=== PATIENT | male | born 1970 | race Caucasian/White ===

== ENCOUNTER 2025-05-03 07:07 | Inpatient (IN) | payer BC, OTHER ==
[~2025-05-03] VITALS: Ht 182.9 cm; Wt 150.7 kg
--- NOTE | 2025-05-03 07:24 | ED.PDOC ---
Back pain HPI HPI Comments 54-year-old male brought in by ambulance with a chief complaint of back pain. Patient reports on having back pain for the past three days. Pain worsens when sitting down. Associated symptoms of nausea and vomiting. Patient has severe pain. Denies trauma or any other symptoms at this time. Denies history of chronic steroid use or history of osteoporosis Denies history of cancer Denies fevers chills night sweats nausea vomiting unintentional weight loss Denies abdominal tearing pain Denies syncope Denies urinary changes or urinary incontinence Denies numbness tingling of the groin her inner thigh Denies previous back procedures or surgeries Chief Complaint: Back Pain Time Seen by MD: 07:30 Reviewed Notes: Nurses Notes, Human Resources Project Manager Notes, Medications, Allergies Allergies: Coded Allergies: NO KNOWN ALLERGIES (Unverified , 05/03/25) Information Source: Patient, Emergency Med Personnel Mode of Arrival: Ambulatory Timing: Days Duration: Since onset, Days Severity: Moderate Prehospital treatment: None Quality: Aching Onset: Spontaneous History of: None Past Medical History PAST MEDICAL HISTORY: Denies Surgical History: Denies all surgeries Constitutional: denies: chills, diaphoresis, fatigue, fever, malaise, sweats, weakness, others EENTM: denies: blurred vision, double vision, ear bleeding, ear discharge, ear drainage, ear pain, ear ringing, eye pain, eye redness, hearing loss, mouth pain, mouth swelling, nasal discharge, nose bleeding, nose congestion, nose pain, photophobia, tearing, throat pain, throat swelling, voice changes, others Respiratory: denies: cough, hemoptysis, orthopnea, SOB at rest, shortness of breath, SOB with excertion, stridor, wheezing, others Cardiovascular: denies: chest pain, dizzy spells, diaphoresis, Dyspnea on exertion, edema, irregular heart beat, left arm pain, lightheadedness, palpitations, PND, syncope, others Gastrointestinal: reports: nausea, vomiting; denies: abdomen distended, abdominal pain, blood streaked bowels, constipated, diarrhea, dysphagia, difficulty swallowing, hematemesis, melena, poor appetite, poor fluid intake, rectal bleeding, rectal pain, others Genitourinary: denies: burning, dysuria, flank pain, frequency, hematuria, incontinence, penile discharge, penile sore, pain, testicle pain, testicle swelling, urgency, others Neurological: denies: dizziness, fainting, headache, left sided numbness, left sided weakness, numbness, paresthesia, pre-existing deficit, right sided numbn ess, right sided weakness, seizure, speech problems, tingling, tremors, weakness, others Musculoskeletal: reports: back pain; denies: gout, joint pain, joint swelling, muscle pain, muscle stiffness, neck pain, others Integumetry: denies: bruises, change in color, change in hair/nails, dryness, laceration, lesions, lumps, rash, wounds, others Allergic/Immunocompromised: denies: Difficulty Healing, Frequent Infections, Hives, Itching, others Hematologic/Lymphatic: denies: anemia, blood clots, easy bleeding, easy bruising, swollen glands, others Endocrine: denies: excessive hunger, excessive sweating, excessive thirst, excessive urination, flushing, intolerance to cold, intolerance to heat, unexplained weight gain, unexplained weight loss, others Psychiatric: denies: anxiety, bipolar disorder, depression, hopeless, panic disorder, schizophrenia, sleepless, suicidal, others All Other Systems: Reviewed and Negative Physical Exam Exam Comments Head normocephalic, localized TTP to the midline region with no steps off, bilateral lower extremity strains 5+, lower extremity vascular sensation is intact General Appearance: No Apparent Distress, Normal HEENT: Normal ENT Inspection, Pharynx Normal, TMs Normal Neck: Full Range of Motion, Non-Tender, Normal, Normal Inspection Respiratory: Chest Non-Tender, Lungs Clear, No Accessory Muscle Use, No Respiratory Distress, Normal Breath Sounds Cardiovascular: No Edema, No JVD, No Murmur, No Gallop, Normal Peripheral P ulses, Regular Rate/Rhythm Breast Exam: Deferred Gastrointestinal: No Organomegaly, Non Tender, No Pulsatile Mass, Normal Bowel Sounds, Soft Genitalia: Deferred Pelvic: Deferred Rectal: Deferred Extremities: No calf tenderness, Normal capillary refill, Normal inspection, Normal range of motion, Non-tender, No pedal edema Musculoskeletal : Apperance: Normal Neurologic: Alert, metal off bearer II-XII nml as Tested, No Motor Deficits, Normal Affect, Normal Mood, No Sensory Deficits Cerebellar Function: Normal Reflexes: Normal Skin: Dry, Normal Color, Warm Lymphatic: No Adenopathy Was a procedure done? Was a procedure done?: No Back Pain Differential Dx Differential Diagnosis: AAA, Aortic Dissection, Appendicitis, Fracture, Musculoskeletal Pain, Pancreatitis, Urinary Tract Infection, Urolithiasis X-Ray, Labs, Meds, VS Vital Signs Date Time Temp Pulse Resp B/P (MAP) Pulse Ox O2 Delivery O2 Flow Rate FiO2 05/03/25 19:03 97.8 05/03/25 17:50 99.4 115 17 101/54 (70) 95 99.4 05/03/25 08:44 90 20 122/81 05/03/25 08:13 90 20 122/81 (95) 95 05/03/25 08:13 90 20 95 Room Air 05/03/25 07:14 98.0 98 18 124/70 96 98.0 Lab Test 05/03/25 19:12 05/03/25 14:45 05/03/25 14:31 05/03/25 09:23 Range/Units Lactic Acid Level 2.1 *H 2.6 *H 0.4-2.0 mmol/L Thyroid Stimulating Hormone (TSH) 1.87 0.55-4.78 uIU/mL Influenza Type A Antigen Negative Negative Influenza Type B Antigen Negative Negative Urine Color Yellow Yellow Urine Clarity Clear Clear Urine pH 5.0 5.0-9.0 Urine Specific [place] 1.025 1.001-1.035 Urine Protein Negative Negative Urine Ketones Negative Negative Urine Blood Negative Negative /uL Urine Nitrite Negative Negative Urine Bilirubin Negative Negative Urine Urobilinogen Normal Negative mg/dL Urine Leukocyte Esterase Negative Negative /uL Urine RBC 3 0 - 3 /hpf Urine Microscopic WBC 2 0-3 /HPF Urine Squamous Epithelial Cells Few <5 /hpf Urine Bacteria None seen None Seen /hpf Urine Mucus Few None Seen Urine Glucose Trace Normal mg/dL Test 05/03/25 08:56 05/03/25 07:52 05/03/25 00:00 Range/Units Troponin I High Sensitivity 8 7 </=54 ng/L White Blood Count 21.6 H 4.4-10.8 10^3/uL Red Blood Count 4.91 4.5-5.90 10^6/uL Hemoglobin 14.7 13.5-17.5 g/dL Hematocrit 41.6 41.0-53.0 % Mean Corpuscular Volume 84.7 80.0-100.0 fL Mean Corpuscular Hemoglobin 29.9 28.0-32.0 pg Mean Corpuscular Hemoglobin Concent 35.3 32.0-36.0 g/dL Red Cell Distribution Width 14.2 11.8-14.3 % Platelet Count 197 140-450 10^3/uL Mean Platelet Volume 8.0 6.9-10.8 fL Neutrophils (%) (Auto) 90.2 H 37.0-80.0 % Lymphocytes (%) (Auto) 2.5 L 10.0-50.0 % Monocytes (%) (Auto) 6.9 0.0-12.0 % Eosinophils (%) (Auto) 0.1 0.0-7.0 % Basophils (%) (Auto) 0.3 0.0-2.0 % Neutrophils # (Auto) 19.5 H 1.6-8.6 10 ^3/uL Lymphocytes # (Auto) 0.5 0.4-5.4 10 ^3/uL Monocytes # (Auto) 1.5 H 0-1.3 10 ^3/uL Eosinophils # (Auto) 0 0-0.8 10 ^3/uL Basophils # (Auto) 0.1 0-0.2 10 ^3/uL Nucleated Red Blood Cells 0.0 % Sodium Level 134 L 136-145 mmol/L Potassium Level 4.4 3.5-5.1 mmol/L Chloride Level 103 98-107 mmol/L Carbon Dioxide Level 19 L 20-31 mmol/L Anion Gap 12 5-15 Blood Urea Nitrogen 25 H 9-23 mg/dL Creatinine 1.51 H 0.700-1.30 mg/dL Glomerular Filtration Rate Calc 55 >90 mL/min BUN/Creatinine Ratio 16.6 10.0-20.0 Serum Glucose 244 H 74-106 mg/dL Hemoglobin A1c 6.1 H <5.7 % A1C Calcium Level 9.0 8.7-10.4 mg/dL Total Bilirubin 2.3 H 0.2-1.0 mg/dL Aspartate Amino Transferase (AST) 15 13-40 U/L Alanine Aminotransferase (ALT) 19 7-40 U/L Alkaline Phosphatase 53 46-116 U/L B-Type Natriuretic Peptide 74.07 0-100 pg/mL Total Protein 6.7 5.7-8.2 g/dL Albumin 4.0 3.2-4.8 g/dL Lipase 31 12-53 U/L SARS-CoV-2 Antigen (Rapid) Negative NEGATIVE Current Medications Medications (Trade) Dose Ordered Sig/Beronica Route Start Time Stop Time Status Last Admin Acetaminophen (Tylenol Tablet) 650 mg ONCE ONCE PO 05/03/25 14:45 05/03/25 14:46 DC 05/03/25 19:03 Sodium Chloride 250 ml @ 1,000 mls/hr Q15M ONCE IV 05/03/25 16:00 05/03/25 16:14 DC 05/04/25 01:22 X-Ray, Labs, Meds, VS Comment 54-year-old male brought in by ambulance with no prior MHx associated with a chief complaint of back pain. Patient arrives alert and oriented, ABC's intact, afebrile, vital signs stable, saturating well in room air Peripheral IV insertion+ labs were ordered. CBC was ordered to exclude anemia, blood loss, or infection. BMP was ordered to exclude electrolyte abnormalities, renal failure, de hydration, hyperglycemia CMP was ordered to exclude electrolyte abnormalities, renal failure, dehydration, hyperglycemia and/or liver enzyme abnormalities. PT and INR were ordered to rule out coagulopathy. Troponin and BNP were ordered to rule out myocardial infarction, or congestive heart failure. Urinalysis was ordered to rule out UTI or hematuria. Diagnostic imaging ordered by me and results interpreted by radiology : CT spine, abdominal pelvis CT I considered cauda equina, spinal cord compression, vertebral malignancy/mets, acute spinal fracture, vertebral osteomyelitis, epidural abscess, infected or obstructed kidney stone, Patients work up was remarkable for intractable back pain. The patient received pain medication with minimal improvement in the ER. The patient's workup reveals that the patient needs further evaluation and/or treatment for the above medical conditions. Patient verbalized understanding of the above and is awaiting further evaluation by the admitting service. Time of 1ST Reevaluation: 08:00 Reevaluation 1ST: Unchanged Time of 2ND Reevaluation: 11:32 Reevaluation 2ND: Unchanged Patient Education/Counseling: Diagnosis, Treatment, Prognosis Family Education/Counseling: No Family Present SEPSIS Sepsis Screen Date sepsis recognized/suspect: May 03, 2025 Time Sepsis recognized/suspect: 713 Recent Procedure: No On Antibiotic Therapy: No Respiratory Rate >20: No Heart Rate >90: Yes Temp<36 C (96.8 F) or >38.3 C: No SBP <90 or MAP <65 mmHG: No New Acute Mental Status Change: No Is the patient on CPAP, BIPAP,: No Physician Orders Heplock Iv (05/03/25 ) Electrocardigram (05/03/25 07:43) Ls Spine Wo Contrast (05/03/25 07:43) Ct Ab Pel With Iv Con Only (05/03/25 10:23) Urinalysis (05/03/25 14:32) Drug Screen (05/03/25 14:41) Baclofen Tablet (Liorisal Tablet) (05/04/25 10:00) Blood Culture (05/03/25 15:05) Sliding Scale (05/03/25 ) Vital Signs Date Time Temp Pulse Resp B/P (MAP) Pulse Ox O2 Delivery O2 Flow Rate FiO2 05/03/25 19:03 97.8 05/03/25 17:50 99.4 115 17 101/54 (70) 95 99.4 05/03/25 08:44 90 20 122/81 05/03/25 08:13 90 20 122/81 (95) 95 05/03/25 08:13 90 20 95 Room Air 05/03/25 07:14 98.0 98 18 124/70 96 98.0 Laboratory Tests Test 05/03/25 07:52 05/03/25 14:45 05/03/25 19:12 White Blood Count 21.6 10^3/uL (4.4-10.8) H Lactic Acid Level 2.6 mmol/L (0.4-2.0) *H 2.1 mmol/L (0.4-2.0) *H Departure 1 Departure Time of Disposition: 11:33 Impression: Primary Impression: Intractable back pain Disposition: ADMITTED INPATIENT Condition: Fair Critical Care Note Critical Care Time?: No Stability Stability form required: No Heart Score Heart Score: Heart Score Response (Comments) Value History N/A 0 EKG N/A 0 Age N/A 0 Risk Factors N/A 0 Troponin N/A 0 Total 0 I personally scribed for SHABNAM REMY WOUND/OSTOMY NURSE ([email or web address]) on 05/03/25 at 07:24. Electronically submitted by Hilario Joya ([email or web address]). I personally scribed for SHABNAM REMY NP ([email or web address]) on 05/03/25 at 07:48. Electronically submitted by Hilario Joya ([email or web address]). SHABNAM REMY NP May 03, 2025 07:24
[2025-05-03] MEDS: SODIUM CHLORIDE 0.9% 1,000 ML IV ONE (07:45)
[2025-05-03 08:33] LABS: Hematocrit 41.6 % (41.0-53.0); Hemoglobin 14.7 g/dL (13.5-17.5); Mean Corpuscular Hemoglobin 29.9 pg (28.0-32.0); Mean Corpuscular Volume 84.7 fL (80.0-100.0); Nucleated Red Blood Cells % 0.0 %
[2025-05-03] MEDS: ONDANSETRON HCL 4 MG/2 ML VIAL ONE (08:37)
[2025-05-03] MEDS: MORPHINE SULFATE 4 MG/ML SYR/VIAL IV ONE ×2 (08:44→11:16)
[2025-05-03] MEDS: ONDANSETRON HCL 4 MG/2 ML VIAL IV ONE ×2 (08:44→11:16)
[2025-05-03] MEDS: MORPHINE SULFATE 4 MG/ML SYR/VIAL ONE (08:44)
[2025-05-03 08:50] LABS: Alanine Aminotransferase 19 U/L (7-40); Albumin 4.0 g/dL (3.2-4.8); Alkaline Phosphatase 53 U/L (46-116); Anion Gap 12 (5-15); BUN/Creatinine Ratio 16.6 (10.0-20.0); Calcium 9.0 mg/dL (8.7-10.4); Chloride 103 mmol/L (98-107); Lipase 31 U/L (12-53); Potassium 4.4 mmol/L (3.5-5.1); Total Protein 6.7 g/dL (5.7-8.2)
[2025-05-03 08:53] LABS: Bilirubin, Total 2.3 mg/dL (0.2-1.0); Blood Urea Nitrogen 25 mg/dL (9-23); Carbon Dioxide 19 mmol/L (20-31); Glucose 244 mg/dL (74-106); Sodium 134 mmol/L (136-145)
--- NOTE | 2025-05-03 08:55 | DVH ---
CLINICAL INDICATION: Sudden Back pain TECHNIQUE: CT of the lumbar spine was performed without intravenous contrast. Sagittal and coronal re formatted images are provided. All CT scans at this medical facility are performed using dose modula tion techniques as appropriate to a performed exam including the following: Automated exposure contro l was utilized; adjustment of the MA and/or KV according to patient size; and use of iterative recons truction technique. COMPARISON: None CT Dose: CTDI volume is 38.94 mGy. Dose-length product is 1508.22 mGy*cm FINDINGS: The alignment and curvature of the lumbar spine are preserved. The vertebral bodies are normal in hei ght. There is intervertebral disc space narrowing at L4-L5 and L5-S1. There is stenosis at L4-L5 and L5-S1. Bilateral neural foraminal stenosis at L4-L5 and L5-S1. The prevertebral soft tissues are unremarkable. Paraspinal muscles are also within normal limits. IMPRESSION: 1. No acute fracture or dislocation. 2. Degenerative changes at L4-L5 and L5-S
[2025-05-03 10:17] LABS: Urine Protein, UAD Negative (Negative)
[2025-05-03] MEDS: IOHEXOL 300 MG/ML 100ML BOTTLE IJ ONE (10:40)
--- NOTE | 2025-05-03 11:16 | DVH ---
Exam: CT CT AB PEL WITH IV CON ONLY History: R/o pathology COMPARISON: None Technique: Multidetector spiral CT of the abdomen and pelvis was performed from lung bases to pubic s ymphysis. Intravenous contrast was administered during this examination. Portal venous imaging was o btained. Axial, coronal and sagittal multiplanar reformats were performed by the technologist on a [employer] workstation. Radiation Dose : 1. Abdomen/Pelvis: CTDIvol 27.84mGy, DLP 2018.08 mGy*cm. Findings: Lung Bases: Dependent subsegmental atelectasis. Liver: Hepatic steatosis. Hepatomegaly. Gallbladder and Biliary Tree: Unremarkable Spleen: Unremarkable Pancreas: The pancreas is normal in appearance without focal lesions or abnormal enhancement. Adrenal Glands: Unremarkable Kidneys: No hydronephrosis. Left midpole cyst measures 3.1 cm. Bladder: Unremarkable Bowel: The stomach is grossly normal in appearance. Small bowel and colon are normal in caliber and d istribution. The appendix is not visualized; however, no secondary findings of acute appendicitis ralph ntified. Ascites: Absent Lymphadenopathy: No mesenteric, retroperitoneal or periportal lymphadenopathy. Abdominal Wall and Mesentery: Unremarkable. Vasculature: The visualized abdominal aorta is normal in size and caliber. Abdominal and pelvic vess els demonstrate normal enhancement. Pelvic Organs: Unremarkable Musculoskeletal: No aggressive focal bony lesions, acute fractures or dislocation. Degenerative waddell es of the spine. IMPRESSION: No acute abdominal or pelvic finding. Hepatic steatosis and hepatomegaly. Radiation optimization: All CT scans at this facility use at least one of these dose optimization amna hniques: automated exposure control mA and/or kV adjustment per patient size (includes targeted exam s where dose is matched to clinical indication) or iterative reconstruction.
--- NOTE | 2025-05-03 15:05 | DVHPNRES ---
Progress Note Date Seen: May 03, 2025 Resident Creating Document: JOZEF PATIÑO RESIDENT Medical Necessity Reason Pt with a Central, PICC or Fol: No Subjective Review of Systems Ish Lisa is a 54-year-old male with rheumatoid arthritis who came to the ED with intractable back pain. The patient mentions he has had back pain since 3 days. He describes the pain as 9/10 in intensity, aching in character and radiating to the left leg. The patient states that the pain is such that he can not move around. He states that bending forward worsens the pain. The patient denies any history of trauma. The patient states that he also feels weakness in his legs along with the pain. He has history of nausea and vomiting since 2 days with 2-3 episodes of nonbloody vomitus, with him not being able to keep anything down except water. Patient has a history of a cold 10 days back with no fever, chills or cough. Past medical history: Rheumatoid arthritis (Remicade-once every 6 weeks), diabetes-not on any medication, hypertension-not on any medication Past surgical history: Tonsillectomy, inguinal hernia repair Social & Personal history: lives at home with family Smokin Cigars on weekends Alcohol: 2-3 beers on weekends Drugs:denies Allergies: almonds Patient seen and examined at bedside. Patient is alert and oriented to time, place person and responding to all questions. Patient is in distress due to back pain. Eyes: No Pain, No Vision change, No Conjunctivae inflammation, No Eyelid inflammation, No Redness ENT: No Ear pain, No Ear discharge, No Nose pain, No Nose discharge, No Nose congestion, No Mouth pain, No Mouth swelling, No Throat pain, No Throat swelling Cardiovascular: No Chest Pain, No Palpitations, No Orthopnea, No Paroxysmal No Dyspnea, No Edema, No Lt Headedness Respiratory: No Cough, No Dry, No Shortness of breath, No SOB with exertion, No Wheezing, No Hemoptysis, No Pleuritic Pain, No Sputum Gastrointestinal: Nausea,Vomiting, No Abdominal Pain, No Diarrhea, No Constipation, No Melena, No Hematochezia Genitourinary: No Dysuria, No Frequency, No Incontinence, No Hematuria, No Retention Objective vital signs Vital Sign Date Time Temp Pulse Resp B/P (MAP) Pulse Ox O2 Delivery O2 Flow Rate FiO2 9/15/25 08:44 90 20 122/81 05/03/25 08:13 95 05/03/25 08:13 Room Air 05/03/25 07:14 98.0 98.0 Examination General Appearance: Cooperative. Well developed. Well nourished. NAD. Head Exam: Normal inspection Neck Exam: Normal inspection. Non-tender. Normal alignment Pulmonary/Respiratory: Chest non-tender. Clear bilateral breath sounds, no crackles, no wheezing. Cardiovascular/Chest: Regular rate and rhythm. No murmurs. No JVD. Peripheral Pulses: 2+ Radial (R). 2+ Radial (L). 2+ Pedal (R). 2+ Pedal (L) Abdominal Exam: Normal bowel sounds. Soft. normal abdomen, no visible veins, Nontender. No hepatospenomegaly. No masses,red,erythematous linear area approximately 10 cm long Ankle Exam: Negative ankle edema Lower extremities: Negative lower extremity edema Neuro/Mental Status: A&O x4. Coherent. Thoughts/Psych: Normal thought pattern. Appropriate mood and affect. Good judgement and insight Skin Exam: Normal inspection. Normal color. Warm. Dry Patient has tenderness on palpation in lower lumbar and sacral area (L5-S1) and left paraspinal area. laboratory and microbiology Laboratory Tests 05/03/25 07:52 Test 05/03/25 07:52 Range/Units Serum Glucose 244 H 74-106 mg/dL Labs and/or images reviewed: Labs reviewed by me, Image(s) reviewed by me Problem List/Assessment/Plan Problem List/Assessment/Plan Rule out sepsis Severe paraspinal muscle spasm -baclofen and flexeril -hot pack -ibuprofen -Lumbar spine CT-No acute fracture or dislocation. -Degenerative changes at L4-L5 and L5-S Intractable nausea and vomiting,possibly due to ? 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 Hyperbilirubinemia -total bilirubin 2.3 -monitor labs for now Left renal cyst - CT showed 3.1 cm -outpatient follow up PUD prophylaxis: protonix DVT prophylaxis: not indicated Goals of care: Full code, discussed for >23 minutes Plan discussed with patient Plan discussed with Dr Reyes Plan discussed with: Patient My Orders My Orders Orders - JOZEF PATIÑO RESIDENT Procedure Category Date Status Time Covid19 Antigen Irina LAB 05/03/25 Logged Rapid Influenza A&B LAB 05/03/25 Logged 14:31 Lactic Acid W/ Reflex LAB 05/03/25 Logged Order 14:32 Thyroid Stimulating LAB 05/03/25 Logged Hormone 14:32 Urinalysis LAB 05/03/25 Logged 14:32 Hemoglobin A1c LAB 05/03/25 Logged 14:33 Acetaminophen Tablet PHA 05/03/25 In Process (Tylenol Tablet) 14:45 Drug Screen LAB 05/03/25 Logged 14:41 Baclofen Tablet PHA 05/03/25 Transmitted (Liorisal Tablet) 22:00 Cyclobenzaprine PHA 05/03/25 Verified Tablet (Flexeril 22:00 Date of Service: May 03, 2025 Billing Provider: DUSTIN REYES MD Common Visit Codes: 05228-[id number] INP/OBS CARE(HIGH) Secondary Visit Codes: 80228-[id number] CARE PLAN 30 MINUTES JOZEF PATIÑO RESIDENT May 03, 2025 15:05 DUSTIN REYES MD May 13, 2025 21:20
[2025-05-03 15:49] LABS: Lactic Acid w/Reflex 2.6 mmol/L (0.4-2.0)
[2025-05-03] MEDS: ACETAMINOPHEN 325 MG TAB PO ONE (19:03)
[2025-05-03] MEDS ORDERED: ONDANSETRON HCL 4 MG/2 ML VIAL IV PRN (20:00)
[2025-05-03 20:52] LABS: COVID19 ANTIGEN SOFIA FIA NEGATIVE (NEGATIVE)
[2025-05-04] VITALS (9 sets, daily range): BP systolic 110–128; BP diastolic 71–95; PULSE 70–129; RESP 16–23; TEMP 97.8–102.8; O2SAT 94–99
--- NOTE | 2025-05-04 00:24 | DVH ---
CHEST RADIOGRAPH Indication: sepsis Technique: 1 view Comparison: None FINDINGS: Lines and Tubes: None Lungs/Pleura: No focal consolidation, pleural effusion or pneumothorax. Cardiomediastinum: Normal heart size. Aortic atherosclerosis. Other: No acute osseous abnormality. IMPRESSION: 1. No acute cardiopulmonary abnormality.
[2025-05-04] MEDS: SODIUM CHLORIDE 0.9% 250 ML IV ONE (01:22)
[2025-05-04] MEDS: CYCLOBENZAPRINE HCL 10 MG TAB PO ONE (01:23)
[2025-05-04] MEDS: SODIUM CHLORIDE 0.9% 1,000 ML IV ONE ×2 (01:37→12:45)
[2025-05-04] MEDS: MORPHINE SULFATE INJ 2 MG/ml SYRG IV PRN (05:13)
--- NOTE | 2025-05-04 06:32 | DVHHPRES ---
History of Present Illness Resident Creating Document: JOZEF PATIÑO RESIDENT History of Present Illness Ish Lisa is a 54-year-old male with rheumatoid arthritis who came to the ED with intractable back pain. The patient mentions he has had back pain since 3 days. He describes the pain as 9/10 in intensity, aching in character and radiating to the left leg. The patient states that the pain is such that he can not move around. He states that bending forward worsens the pain. The patient denies any history of trauma. The patient states that he also feels weakness in his legs along with the pain. He has history of nausea and vomiting since 2 days with 2-3 episodes of nonbloody vomitus, with him not being able to keep anything down except water. Patient has a history of a cold 10 days back with no fever, chills or cough. Past medical history: Rheumatoid arthritis (Remicade-once every 6 weeks), diabetes-not on any medication, hypertension-not on any medication Past surgical history: Tonsillectomy, inguinal hernia repair Social & Personal history: lives at home with family Smokin Cigars on weekends Alcohol: 2-3 beers on weekends Drugs:denies Allergies: almonds Rheumatologic: Rheumatoid arthritis Endocrine: Diabetes Past Surgical History: Hernia Repair, Tonsillectomy ALCOHOL: occassional Drugs: None Lives: with Family Review of Systems Review of Systems Patient seen and examined at bedside. Patient is alert and oriented to time, place person and responding to all questions. Patient is in distress due to back pain. Eyes: No Pain, No Vision change, No Conjunctivae inflammation, No Eyelid inflammation, No Redness ENT: No Ear pain, No Ear discharge, No Nose pain, No Nose discharge, No Nose congestion, No Mouth pain, No Mouth swelling, No Throat pain, No Throat swelling Cardiovascular: No Chest Pain, No Palpitations, No Orthopnea, No Paroxysmal No Dyspnea, No Edema, No Lt Headedness Respiratory: No Cough, No Dry, No Shortness of breath, No SOB with exertion, No Wheezing, No Hemoptysis, No Pleuritic Pain, No Sputum Gastrointestinal: Nausea,Vomiting, No Abdominal Pain, No Diarrhea, No Constipation, No Melena, No Hematochezia Genitourinary: No Dysuria, No Frequency, No Incontinence, No Hematuria, No Retention Gastrointestinal: Nausea, Vomiting Musculoskeletal: back pain Allergies: Uncoded Allergies: almond (Allergy, Unknown, 05/04/25) Medications Current Medications Medications Dose Ordered Sig/Beronica Route Start Time Stop Time Status Last Admin Dose Admin Baclofen 10 mg BID PO 05/04/25 10:00 Acetaminophen 650 mg Q6HP PRN PO 05/03/25 20:00 Ondansetron HCl 4 mg Q4HP PRN IV 05/03/25 20:00 Morphine Sulfate 2 mg Q4HPRN PRN IV 05/03/25 20:00 05/04/25 05:13 2 MG Enoxaparin Sodium 40 mg DAILY SC 05/04/25 10:00 Exam Vital Signs Vital Signs Date Time Temp Pulse Resp B/P (MAP) Pulse Ox O2 Delivery O2 Flow Rate FiO2 05/04/25 05:13 120 18 133/80 05/04/25 05:00 97.8 95 97.8 05/04/25 01:24 Room Air* 0 21 Exam General Appearance: Cooperative. Well developed. Well nourished. NAD. Head Exam: Normal inspection Neck Exam: Normal inspection. Non-tender. Normal alignment Pulmonary/Respiratory: Chest non-tender. Clear bilateral breath sounds, no crackles, no wheezing. Cardiovascular/Chest: Regular rate and rhythm. No murmurs. No JVD. Peripheral Pulses: 2+ Radial (R). 2+ Radial (L). 2+ Pedal (R). 2+ Pedal (L) Abdominal Exam: Normal bowel sounds. Soft. normal abdomen, no visible veins, Nontender. No hepatospenomegaly. No masses Ankle Exam: Negative ankle edema Lower extremities: Negative lower extremity edema Neuro/Mental Status: A&O x4. Coherent. Thoughts/Psych: Normal thought pattern. Appropriate mood and affect. Good judgement and insight Skin Exam: Normal inspection. Normal color. Warm. Dry Patient has tenderness on palpation in lower lumbar and sacral area (L5-S1) and left paraspinal area. General Appearance: Alert, Oriented X3, Cooperative, mild distress Labs/Xrays Labs Test 05/03/25 19:12 05/03/25 14:45 05/03/25 14:31 05/03/25 09:23 Range/Units Lactic Acid Level 2.1 *H 0.4-2.0 mmol/L Thyroid Stimulating Hormone (TSH) 1.87 0.55-4.78 uIU/mL Influenza Type A Antigen Negative Negative Influenza Type B Antigen Negative Negative Urine Color Yellow Yellow Urine Clarity Clear Clear Urine pH 5.0 5.0-9.0 Urine Specific [place] 1.025 1.001-1.035 Urine Protein Negative Negative Urine Ketones Negative Negative Urine Blood Negative Negative /uL Urine Nitrite Negative Negative Urine Bilirubin Negative Negative Urine Urobilinogen Normal Negative mg/dL Urine Leukocyte Esterase Negative Negative /uL Urine RBC 3 0 - 3 /hpf Urine Microscopic WBC 2 0-3 /HPF Urine Squamous Epithelial Cells Few <5 /hpf Urine Bacteria None seen None Seen /hpf Urine Mucus Few None Seen Urine Glucose Trace Normal mg/dL Test 05/03/25 08:56 05/03/25 07:52 05/03/25 00:00 Range/Units Troponin I High Sensitivity 8 </=54 ng/L White Blood Count 21.6 H 4.4-10.8 10^3/uL Red Blood Count 4.91 4.5-5.90 10^6/uL Hemoglobin 14.7 13.5-17.5 g/dL Hematocrit 41.6 41.0-53.0 % Mean Corpuscular Volume 84.7 80.0-100.0 fL Mean Corpuscular Hemoglobin 29.9 28.0-32.0 pg Mean Corpuscular Hemoglobin Concent 35.3 32.0-36.0 g/dL Red Cell Distribution Width 14.2 11.8-14.3 % Platelet Count 197 140-450 10^3/uL Mean Platelet Volume 8.0 6.9-10.8 fL Neutrophils (%) (Auto) 90.2 H 37.0-80.0 % Lymphocytes (%) (Auto) 2.5 L 10.0-50.0 % Monocytes (%) (Auto) 6.9 0.0-12.0 % Eosinophils (%) (Auto) 0.1 0.0-7.0 % Basophils (%) (Auto) 0.3 0.0-2.0 % Neutrophils # (Auto) 19.5 H 1.6-8.6 10 ^3/uL Lymphocytes # (Auto) 0.5 0.4-5.4 10 ^3/uL Monocytes # (Auto) 1.5 H 0-1.3 10 ^3/uL Eosinophils # (Auto) 0 0-0.8 10 ^3/uL Basophils # (Auto) 0.1 0-0.2 10 ^3/uL Nucleated Red Blood Cells 0.0 % Sodium Level 134 L 136-145 mmol/L Potassium Level 4.4 3.5-5.1 mmol/L Chloride Level 103 98-107 mmol/L Carbon Dioxide Level 19 L 20-31 mmol/L Anion Gap 12 5-15 Blood Urea Nitrogen 25 H 9-23 mg/dL Creatinine 1.51 H 0.700-1.30 mg/dL Glomerular Filtration Rate Calc 55 >90 mL/min BUN/Creatinine Ratio 16.6 10.0-20.0 Serum Glucose 244 H 74-106 mg/dL Hemoglobin A1c 6.1 H <5.7 % A1C Calcium Level 9.0 8.7-10.4 mg/dL Total Bilirubin 2.3 H 0.2-1.0 mg/dL Aspartate Amino Transferase (AST) 15 13-40 U/L Alanine Aminotransferase (ALT) 19 7-40 U/L Alkaline Phosphatase 53 46-116 U/L B-Type Natriuretic Peptide 74.07 0-100 pg/mL Total Protein 6.7 5.7-8.2 g/dL Albumin 4.0 3.2-4.8 g/dL Lipase 31 12-53 U/L SARS-CoV-2 Antigen (Rapid) Negative NEGATIVE SEPSIS Sepsis Screen Date sepsis recognized/suspect: May 04, 2025 Time Sepsis recognized/suspect: 0126 Recent Procedure: No On Antibiotic Therapy: No Respiratory Rate >20: No Heart Rate >90: No Temp<36 C (96.8 F) or >38.3 C: Yes SBP <90 or MAP <65 mmHG: No New Acute Mental Status Change: No Is the patient on CPAP, BIPAP,: No Physician Orders Hepatitis B Surface Antigen (05/04/25 04:52) Hepatitis C Antibody (05/04/25 04:52) Vital Signs Date Time Temp Pulse Resp B/P (MAP) Pulse Ox O2 Delivery O2 Flow Rate FiO2 05/04/25 05:13 120 18 133/80 05/04/25 05:00 97.8 110 16 117/72 (87) 95 97.8 05/04/25 02:10 98.8 123 23 120/95 (103) 94 98.8 05/04/25 01:24 17 99 Room Air* 0 21 05/04/25 01:21 101.6 79 17 110/62 (78) 94 101.6 Laboratory Tests Test 05/03/25 19:12 Lactic Acid Level 2.1 mmol/L (0.4-2.0) *H Medications Medications Dose Ordered Sig/Beronica Route Start Time Stop Time Status Last Admin Dose Admin Cyclobenzaprine HCl 10 mg HS ONCE PO 05/03/25 22:00 05/03/25 22:01 DC 05/04/25 01:23 10 MG Morphine Sulfate 2 mg Q4HPRN PRN IV 05/03/25 20:00 05/04/25 05:13 2 MG Assessment/Plan Assessment/Plan Rule out sepsis Severe paraspinal muscle spasm -baclofen and flexeril -hot pack -ibuprofen -Lumbar spine CT-No acute fracture or dislocation. -Degenerative changes at L4-L5 and L5-S Intractable nausea and vomiting,possibly due to ? 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 Hyperbilirubinemia -total bilirubin 2.3 -monitor labs for now Left renal cyst - CT showed 3.1 cm -outpatient follow up PUD prophylaxis: protonix DVT prophylaxis: not indicated Goals of care: Full code, discussed for >23 minutes Plan discussed with patient Plan discussed with Dr Reyes Plan discussed with: Patient, Spouse My Orders Orders - JOZEF PATIÑO RESIDENT Procedure Category Date Status Time Urinalysis LAB 05/03/25 Logged 14:32 Drug Screen LAB 05/03/25 Logged 14:41 Baclofen Tablet PHA 05/04/25 In Process (Liorisal Tablet) 10:00 Blood Culture PRAKASH 05/03/25 In Process 15:05 Sliding Scale ED NURSING 05/03/25 Transmitted Date of Service: May 04, 2025 Billing Provider: DUSTIN REYES MD Common Visit Codes: [id number] INP/OBS CARE (HIGH) JOZEF PATIÑO RESIDENT May 04, 2025 06:32 DUSTIN REYES MD May 11, 2025 10:11
[2025-05-04 07:11] LABS: Hematocrit 43.9 % (41.0-53.0); Hemoglobin 15.2 g/dL (13.5-17.5); Mean Corpuscular Hemoglobin 30.0 pg (28.0-32.0); Mean Corpuscular Volume 86.5 fL (80.0-100.0); Nucleated Red Blood Cells % 0.8 %
[2025-05-04 07:12] LABS: Albumin 4.2 g/dL (3.2-4.8); Alkaline Phosphatase 51 U/L (46-116); Anion Gap 8 (5-15); BUN/Creatinine Ratio 14.9 (10.0-20.0); Calcium 9.0 mg/dL (8.7-10.4); Carbon Dioxide 23 mmol/L (20-31); Chloride 100 mmol/L (98-107); Potassium 4.3 mmol/L (3.5-5.1); Total Protein 7.3 g/dL (5.7-8.2)
[2025-05-04 07:13] LABS: Alanine Aminotransferase 55 U/L (7-40); Bilirubin, Total 1.5 mg/dL (0.2-1.0); Blood Urea Nitrogen 28 mg/dL (9-23); Glucose 156 mg/dL (74-106); Sodium 131 mmol/L (136-145)
--- NOTE | 2025-05-04 08:48 | DVHINCON2 ---
Date Seen: May 04, 2025 Referring Physician MD Sivakumar Reason for Consultation New onset a-fib History of Present Illness This is a 54-year-old man who presented to the emergency room with a chief complaint of lower back pain for three days. The patient presents with lower back pain radiating to the left lower extremity and associated with nausea, vomiting, and polyuria. Positional changes makes his back pain worse. Denies any trauma or heavy lifting. During admission to the telemetry floor the patient was noted to be tachycardic with a heart rate up to the 180s bpm on services advisor. He underwent a baseline 12 lead electrocardiogram revealing an atrial fibrillation rhythm with rapid ventricular rate at 163 bpm. Complains of increased fatigue and lower back pain. Denies chest pain, palpitations, diaphoresis, SOB, dizziness, or syncope. Serial troponin levels are negative. Denies any history of cardiovascular disease or tachyarrhythmias. 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 At that time he underwent an event monitor for one week and a transthoracic echocardiogram all with unremarkable results and no further follow-ups. Significant medical history includes [id number] diabetes mellitus, hypertension without antihypertensive therapy, rheumatoid arthritis on Remicade treatment every 6 weeks, cigar use, occasional alcohol use, and morbid obesity. Past Medical History Past medical history reviewed. No other significant than mentioned above. Past Surgical History Tonsillectomy Inguinal hernia repair Family History: Diabetes mellitus G8 MOTHER Hypertension G8 MOTHER G8 FATHER Family History Family history reviewed. Social History See HPI. Denies the use of illicit drugs. Allergies: Coded Allergies: NO KNOWN ALLERGIES (Unverified , 05/03/25) Home Meds Unable to retrieve home medications. Current Medications Current Medications Medications (Trade) Dose Ordered Sig/Beronica Route PRN Reason Start Time Stop Time Status Last Admin Baclofen (Liorisal Tablet) 10 mg BID PO 05/04/25 10:00 Acetaminophen (Tylenol Tablet) 650 mg Q6HP PRN PO PAIN SCALE 1-3 OR TEMP>100.4 05/03/25 20:00 Ondansetron HCl (Zofran) 4 mg Q4HP PRN IV NAUSEA / VOMITING 05/03/25 20:00 Morphine Sulfate 2 mg Q4HPRN PRN IV SEVERE PAIN (7-10 PAIN SCALE) 05/03/25 20:00 05/04/25 05:13 Enoxaparin Sodium (Lovenox) 40 mg DAILY SC 05/04/25 10:00 Cefepime HCl 50 ml @ 12.5 mls/hr Q12HR IV 05/04/25 10:00 UNV Cefepime HCl 50 ml @ 12.5 mls/hr Q8H IV 05/04/25 08:30 Review of Systems Constitutional: Fatigue Ears, Nose, & Throat: No symptom reported Eyes: No symptom reported Neurological: No symptoms reported Pulmonary/Respiratory: No symptom reported Cardiovascular: No symptom reported Gastrointestinal: No symptom reported Genitourinary: No symptom reported Musculoskeletal: Lower back pain Skin: No symptom reported Psychiatric: No symptom reported Endocrine: No symptom reported Hemotologic/Lymphatic: No symptom reported Vital Signs Vital Signs Date Time Temp Pulse Resp B/P (MAP) Pulse Ox O2 Delivery O2 Flow Rate FiO2 05/04/25 08:38 97.8 70 20 128/73 (91) 97 97.8 05/04/25 01:24 Room Air* 0 21 Physical Exam General Appearance: Cooperative. Well developed. Morbidly obese. Moderate acute distress Head Exam: Normal inspection Neck Exam: Normal inspection. Non-tender. Normal alignment Pulmonary/Respiratory: Diminished bilateral breath sounds Cardiovascular/Chest: Irregularly irregular rate and rhythm. A-fib with RVR. No murmurs. No JVD. Peripheral Pulses: 2+ Radial (R). 2+ Radial (L). 2+ Pedal (R). 2+ Pedal (L) Abdominal Exam: Normal bowel sounds. Soft. Ankle Exam: Negative ankle edema Lower extremities: Negative lower extremity edema Neuro/Mental Status: A&O x4. Coherent Thoughts/Psych: Normal thought pattern. Uneasy Appearance: Moderate acute distress Skin Exam: Redness under lower abdominal fold Labs/Diagnostic Data Labs Test 05/04/25 06:26 05/03/25 14:45 05/03/25 14:31 05/03/25 09:23 Range/Units White Blood Count 13.9 #H 4.4-10.8 10^3/uL Red Blood Count 5.07 4.5-5.90 10^6/uL Hemoglobin 15.2 13.5-17.5 g/dL Hematocrit 43.9 41.0-53.0 % Mean Corpuscular Volume 86.5 80.0-100.0 fL Mean Corpuscular Hemoglobin 30.0 28.0-32.0 pg Mean Corpuscular Hemoglobin Concent 34.7 32.0-36.0 g/dL Red Cell Distribution Width 14.7 H 11.8-14.3 % Platelet Count 147 140-450 10^3/uL Mean Platelet Volume 8.3 6.9-10.8 fL Neutrophils (%) (Auto) 88.8 H 37.0-80.0 % Lymphocytes (%) (Auto) 5.5 L 10.0-50.0 % Monocytes (%) (Auto) 5.3 0.0-12.0 % Eosinophils (%) (Auto) 0.1 0.0-7.0 % Basophils (%) (Auto) 0.3 0.0-2.0 % Neutrophils # (Auto) 12.4 H 1.6-8.6 10 ^3/uL Lymphocytes # (Auto) 0.8 0.4-5.4 10 ^3/uL Monocytes # (Auto) 0.7 0-1.3 10 ^3/uL Eosinophils # (Auto) 0 0-0.8 10 ^3/uL Basophils # (Auto) 0 0-0.2 10 ^3/uL Nucleated Red Blood Cells 0.8 % Sodium Level 131 L 136-145 mmol/L Potassium Level 4.3 3.5-5.1 mmol/L Chloride Level 100 98-107 mmol/L Carbon Dioxide Level 23 20-31 mmol/L Anion Gap 8 5-15 Blood Urea Nitrogen 28 H 9-23 mg/dL Creatinine 1.88 H 0.700-1.30 mg/dL Glomerular Filtration Rate Calc 42 >90 mL/min BUN/Creatinine Ratio 14.9 10.0-20.0 Serum Glucose 156 H 74-106 mg/dL Lactic Acid Level 1.1 0.4-2.0 mmol/L Calcium Level 9.0 8.7-10.4 mg/dL Total Bilirubin 1.5 H 0.2-1.0 mg/dL Aspartate Amino Transferase (AST) 186 H 13-40 U/L Alanine Aminotransferase (ALT) 55 H 7-40 U/L Alkaline Phosphatase 51 46-116 U/L Total Protein 7.3 5.7-8.2 g/dL Albumin 4.2 3.2-4.8 g/dL Thyroid Stimulating Hormone (TSH) 1.87 0.55-4.78 uIU/mL Influenza Type A Antigen Negative Negative Influenza Type B Antigen Negative Negative Urine Color Yellow Yellow Urine Clarity Clear Clear Urine pH 5.0 5.0-9.0 Urine Specific [place] 1.025 1.001-1.035 Urine Protein Negative Negative Urine Ketones Negative Negative Urine Blood Negative Negative /uL Urine Nitrite Negative Negative Urine Bilirubin Negative Negative Urine Urobilinogen Normal Negative mg/dL Urine Leukocyte Esterase Negative Negative /uL Urine RBC 3 0 - 3 /hpf Urine Microscopic WBC 2 0-3 /HPF Urine Squamous Epithelial Cells Few <5 /hpf Urine Bacteria None seen None Seen /hpf Urine Mucus Few None Seen Urine Glucose Trace Normal mg/dL Test 05/03/25 08:56 05/03/25 07:52 05/03/25 00:00 Range/Units Troponin I High Sensitivity 8 </=54 ng/L Hemoglobin A1c 6.1 H <5.7 % A1C B-Type Natriuretic Peptide 74.07 0-100 pg/mL Lipase 31 12-53 U/L SARS-CoV-2 Antigen (Rapid) Negative NEGATIVE Assessment Sepsis, ?Source Atrial fibrillation with rapid ventricular rate, unspecified Rule out structural heart disease Rheumatoid arthritis Prediabetes HgbA1C 6.1% Acute kidney injury Elevated LFTs Cigar/alcohol abuse Morbid obesity Plan/Recommendation (Dr. Cortes) The patient presents with a newly diagnosed atrial fibrillation rhythm now at an uncontrolled rate for which he underwent a baseline 12 lead electrocardiogram. Initiate metoprolol IV x1 and magnesium rider. Antiarrhythmic therapy contraindicated given unknown onset of atrial fibrillation. Initiate therapeutic Lovenox ([id number] Score, ?, HAS-BLED Score, 0 points). We will continue further cardiac evaluation with a transthoracic echocardiogram to evaluate cardiac function. Continue septic workup per primary care team. Monitor ECG changes and notify. Continue sleep study as outpatient, suspected CHRISTIAN. Further orders per clinical course. Thank you for allowing us to participate in this patient's care. Please call if you have any questions or concerns. Critical care time: 45 min. This medical document was created using an electronic medical record system with voice recognition software and [employer] dictation system. Although this document has been carefully reviewed, there might still be some phonetic and typographical errors. Occasional wrong- word or ``sound-alike substitutions may have occurred due to the inherent limitations of voice recognition software. These areas are purely typographical due to imperfections of the software programs and do not reflect any compromise in the patient's medical care. Please read the chart carefully and recognize, using context, where these substitutions have occurred. Plan discussed with: Patient, Other NYHA Physical activity limitations: NA Date of Service: May 04, 2025 Billing Provider: MAGY BURROUGHS Cardiology Common Codes: 33301-[id number] CARE 30-74 MIN MAGY BURROUGHS May 04, 2025 08:48
[2025-05-04] MEDS: SODIUM CHLORIDE 0.9% 1,000 ML IV SCH (09:00)
[2025-05-04] MEDS: SODIUM CHLORIDE 0.9% 500 ML IV ONE (09:30)
[2025-05-04] MEDS: METOPROLOL TARTRATE 1MG/1ML-5ML VIAL IV ONE (09:33)
[2025-05-04] MEDS: CEFEPIME 2GM/50ML NS 50 ML IV SCH (09:55)
[2025-05-04] MEDS ORDERED: ENOXAPARIN SOD 40 MG/0.4 ML SYRINGE SC SCH (10:00)
[2025-05-04] MEDS ORDERED: CEFEPIME 1GM/50ML 50 ML IV SCH (10:00)
[2025-05-04] MEDS ORDERED: ENOXAPARIN SOD 100 MG/1 ML SYRINGE SC SCH (10:00)
[2025-05-04] MEDS: MAGNESIUM SULFATE 1GM/100ML 100 ML IV ONE (10:05)
[2025-05-04] MEDS: BACLOFEN 10 MG TAB PO SCH (10:10)
[2025-05-04] MEDS: ENOXAPARIN SOD 150 MG/1 ML SYRINGE SC SCH (10:10)
[2025-05-04] MEDS ORDERED: VANCOMYCIN PER PHARMACY 0 MG IV SCH (10:15)
[2025-05-04 10:55] LABS: Magnesium 1.8 mg/dL (1.6-2.6); Triglycerides 132.0 mg/dL (< 150)
[2025-05-04 10:57] LABS: Cholesterol 111.0 mg/dL (< 200); HDL Cholesterol 39.0 mg/dL (40-59)
[2025-05-04] MEDS: VANCOMYCIN 1GM/250ML KIT 250 ML IV SCH (11:11)
[2025-05-04] MEDS: ACETAMINOPHEN 325 MG TAB PO PRN (12:15)
[2025-05-04] MEDS: METOPROLOL TARTRATE 25 MG TAB PO ONE (12:31)
[2025-05-04 14:20] LABS: Urine Protein, UAD 1+ (Negative)
[2025-05-04] MEDS: dilTIAZem 25 MG/5 ML VIAL IV ONE (18:53)
--- NOTE | 2025-05-04 19:50 | DVHPNRES ---
Progress Note Date Seen: May 04, 2025 Resident Creating Document: JOZEF PATIÑO RESIDENT Medical Necessity Reason Pt with a Central, PICC or Fol: No Subjective Review of Systems Ish Lisa is a 54-year-old male with rheumatoid arthritis who came to the ED with intractable back pain. The patient mentions he has had back pain since 3 days. He describes the pain as 9/10 in intensity, aching in character and radiating to the left leg. The patient states that the pain is such that he can not move around. He states that bending forward worsens the pain. The patient denies any history of trauma. The patient states that he also feels weakness in his legs along with the pain. He has history of nausea and vomiting since 2 days with 2-3 episodes of nonbloody vomitus, with him not being able to keep anything down except water. Patient has a history of a cold 10 days back with no fever, chills or cough. Past medical history: Rheumatoid arthritis (Remicade-once every 6 weeks), diabetes-not on any medication, hypertension-not on any medication Past surgical history: Tonsillectomy, inguinal hernia repair Social & Personal history: lives at home with family Smokin Cigars on weekends Alcohol: 2-3 beers on weekends Drugs:denies Allergies: almonds Patient seen and examined at bedside. Patient is alert and oriented to time, place person and responding to all questions. Patient is in distress due to back pain. Eyes: No Pain, No Vision change, No Conjunctivae inflammation, No Eyelid inflammation, No Redness ENT: No Ear pain, No Ear discharge, No Nose pain, No Nose discharge, No Nose congestion, No Mouth pain, No Mouth swelling, No Throat pain, No Throat swelling Cardiovascular: No Chest Pain, No Palpitations, No Orthopnea, No Paroxysmal No Dyspnea, No Edema, No Lt Headedness Respiratory: No Cough, No Dry, No Shortness of breath, No SOB with exertion, No Wheezing, No Hemoptysis, No Pleuritic Pain, No Sputum Gastrointestinal: Nausea,Vomiting, No Abdominal Pain, No Diarrhea, No Constipation, No Melena, No Hematochezia Genitourinary: No Dysuria, No Frequency, No Incontinence, No Hematuria, No Retention 05/04- patient was seen at bedside today. His white count today was 13.9, AST was 186 ,ALT was 55. Urinalysis, urine culture, blood culture, respiratory culture ordered for the patient he was given 1 L bolus of NS and started on cefipime. The patient was running tachycardia on telemetry, EKG was ordered which showed AFib with RVR. Cardiology was consulted and patient was started on metoprolol, started on therapeutic Lovenox. Objective vital signs Vital Sign Date Time Temp Pulse Resp B/P (MAP) Pulse Ox O2 Delivery O2 Flow Rate FiO2 05/04/25 18:31 98.1 05/04/25 17:00 109 16 110/71 (84) 95 05/04/25 01:24 Room Air* 0 21 Total Intake and Output 05/03/25 05/03/25 05/04/25 15:00 23:00 07:00 Intake Total 340 ml Output Total 400 ml Balance -60 ml medications Current Medications Medications Dose Ordered Sig/Beronica Route Start Time Stop Time Status Last Admin Dose Admin Baclofen 10 mg BID PO 05/04/25 10:00 05/04/25 10:10 10 MG Acetaminophen 650 mg Q6HP PRN PO 05/03/25 20:00 05/04/25 17:31 650 MG Ondansetron HCl 4 mg Q4HP PRN IV 05/03/25 20:00 Morphine Sulfate 2 mg Q4HPRN PRN IV 05/03/25 20:00 05/04/25 09:07 2 MG Cefepime HCl 50 ml @ 12.5 mls/hr Q12HR IV 05/04/25 10:00 UNV Cefepime HCl 50 ml @ 12.5 mls/hr Q8H IV 05/04/25 08:30 05/04/25 17:45 12.5 MLS/HR Sodium Chloride 1,000 ml @ 75 mls/hr [id number] IV 05/04/25 09:00 05/04/25 09:00 75 MLS/HR Enoxaparin Sodium 150 mg Q12HR SC 05/04/25 10:00 UNV Enoxaparin Sodium 150 mg BID SC 05/04/25 10:00 05/04/25 10:10 150 MG Vancomycin HCl 0 ml @ 0 mls/hr UD IV 05/04/25 10:15 Diltiazem HCl 30 mg Q6HR GT 05/05/25 00:00 Examination General Appearance: Cooperative. Well developed. Well nourished. NAD. Head Exam: Normal inspection Neck Exam: Normal inspection. Non-tender. Normal alignment Pulmonary/Respiratory: Chest non-tender. decreased air entry bilaterally, no crackles, no wheezing. Cardiovascular/Chest: irregularly rate and rhythm. No murmurs. No JVD. Peripheral Pulses: 2+ Radial (R). 2+ Radial (L). 2+ Pedal (R). 2+ Pedal (L) Abdominal Exam: Normal bowel sounds. Soft. normal abdomen, no visible veins, Nontender. No hepatospenomegaly. No masses,red,erythematous linear area approximately 10 cm long Ankle Exam: Negative ankle edema Lower extremities: Negative lower extremity edema Neuro/Mental Status: A&O x4. Coherent. Thoughts/Psych: Normal thought pattern. Appropriate mood and affect. Good judgement and insight Skin Exam: Normal inspection. Normal color. Warm. Dry Patient has tenderness on palpation in lower lumbar and sacral area (L5-S1) and left paraspinal area. laboratory and microbiology Laboratory Tests 05/04/25 06:26 Test 05/04/25 06:26 Range/Units Serum Glucose 156 H 74-106 mg/dL Microbiology Date/Time Source Procedure Growth Status 05/03/25 15:33 Blood Blood Culture - Preliminary Resulted Labs and/or images reviewed: Labs reviewed by me, Image(s) reviewed by me Problem List/Assessment/Plan Problem List/Assessment/Plan Sepsis unspecified source for now Gram-positive bacteremia AFib with RVR with a secondary hypercoagulable state -initial set of blood cultures showed Gram-positive bacteremia -started on vancomycin and cefepime -repeated blood cultures on ordered urine culture, james cultures -consulted Cardiology due to AFib, advised to start on metoprolol and therapeutic Lovenox -continuously monitor telemetry and EKG changes -ordered Echo -continuously monitor labs and electrolytes Severe paraspinal muscle spasm -baclofen and flexeril -hot pack -ibuprofen -Lumbar spine CT-No acute fracture or dislocation. -Degenerative changes at L4-L5 and L5-S Intractable nausea and vomiting,possibly due to ? 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 Hyperbilirubinemia -total bilirubin 2.3 -monitor labs for now Left renal cyst - CT showed 3.1 cm -outpatient follow up PUD prophylaxis: protonix DVT prophylaxis: not indicated Goals of care: Full code, discussed for >23 minutes Plan discussed with patient Plan discussed with Dr Reyes Plan discussed with: Patient, Spouse My Orders My Orders Orders - JOZEF PATIÑO RESIDENT Procedure Category Date Status Time Cefepime 2gm/50ml Ns PHA 05/04/25 In Process (Maxipime 2gm/50ml) 08:30 Electrocardigram EKG 05/04/25 Logged 08:42 * Cardiology Consult CONS 05/04/25 Transmitted 08:49 Vancomycin Per PHA 05/04/25 In Process Pharmacy 10:15 Blood Culture PRAKASH 05/04/25 In Process 10:08 Mrsa Screen PRAKASH 05/04/25 Logged 10:08 Complete Blood Count LAB 05/05/25 Verified 04:00 Creatinine LAB 05/05/25 Verified 04:00 Vancomycin Per ERICA 05/04/25 In Process Pharmacy Protoc 10:30 Vancomycin,Random LAB 05/05/25 Verified 04:00 Date of Service: May 04, 2025 Billing Provider: DUSTIN REYES MD Common Visit Codes: [id number] INP/OBS CARE(HIGH) JOZEF PATIÑO RESIDENT May 04, 2025 19:50 DUSTIN REYES MD May 13, 2025 21:20
[2025-05-04] MEDS ORDERED: METOPROLOL TARTRATE 25 MG TAB PO SCH (22:00)
[2025-05-05] VITALS (8 sets, daily range): BP systolic 102–131; BP diastolic 63–102; PULSE 59–106; RESP 16–20; TEMP 97.5–99.7; O2SAT 92–99
[2025-05-05 06:53] LABS: Albumin 3.5 g/dL (3.2-4.8); Anion Gap 10 (5-15); BUN/Creatinine Ratio 18.7 (10.0-20.0); Bilirubin, Total 0.9 mg/dL (0.2-1.0); Blood Urea Nitrogen 20 mg/dL (9-23); Chloride 102 mmol/L (98-107); Potassium 3.9 mmol/L (3.5-5.1); Total Protein 6.3 g/dL (5.7-8.2)
[2025-05-05 06:57] LABS: Alanine Aminotransferase 54 U/L (7-40); Alkaline Phosphatase 42 U/L (46-116); Calcium 8.6 mg/dL (8.7-10.4); Carbon Dioxide 20 mmol/L (20-31); Glucose 151 mg/dL (74-106); Sodium 132 mmol/L (136-145)
[2025-05-05 06:59] LABS: Hematocrit 36.5 % (41.0-53.0); Hemoglobin 13.0 g/dL (13.5-17.5); Mean Corpuscular Hemoglobin 30.1 pg (28.0-32.0); Mean Corpuscular Volume 84.8 fL (80.0-100.0); Nucleated Red Blood Cells % 0.1 %
--- NOTE | 2025-05-05 07:31 | ECG ---
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
--- NOTE | 2025-05-05 09:41 | DVHSR ---
APPROVED REPORT EXAM: Two-dimensional and M-mode echocardiogram with Doppler and color Doppler. Blood Pressure: 120/80 mmHg INDICATION R/O Endocarditis RISK FACTORS Obesity: Height: 6', Weight: 330 DIMENSIONS LVDd4.9 (3.8-5.7cm)LA (2D)4.8 (1.9-4.0cm)Aortic Root4.1 (2.0-3.7cm) LVDs3.5 (2.5-4.0cm)LA (MM) (1.9-4.0cm)Aortic Cusp Exc (1.5-2.0cm) EF (%) 55.0 (55-70%)Rt. Atrium (1.9-4.0cm)Asc. Aorta4.5 cm IVSd1.2 (0.7-1.1cm)RV (D) (1.8-2.4cm) PWd1.1 (0.7-1.1cm) Mitral Valve MitralMitral Stenosis E/A ratio0.02D MVAcm2 Aortic Valve Aortic ValveAortic Stenosis V21.25m/Shamika Peak GR.6mmHg LVOT Diameter2.3 (1.8-2.4cm)Doppler AVAcm2 Other Information Quality : Technically LimitedRhythm : Technically limited study due to body habitus. Conclusion MODERATELY DILATED RV AND RA NORMAL VALVES MILD LVH AND MILD LV DIASTOLIC DYSFUNCTION LV EF IS 55% NORMAL VALVES NO EFFUSION
--- NOTE | 2025-05-05 11:17 | ECG ---
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
--- NOTE | 2025-05-05 12:36 | DVHPN2 ---
Consult Progress Note Subjective Other Systems: Patient in atrial fibrillation now with controlled rate on inside account representative Objective vital signs Vital Sign Date Time Temp Pulse Resp B/P (MAP) Pulse Ox O2 Delivery O2 Flow Rate FiO2 05/05/25 08:30 97.8 95 20 122/73 (89) 99 97.8 05/04/25 01:24 Room Air* 0 21 Total Intake and Output 05/04/25 05/04/25 05/05/25 15:00 23:00 07:00 Intake Total 1600 ml 1250 ml Output Total 540 ml Balance 1600 ml 710 ml medications Current Medications Medications Dose Ordered Sig/Beronica Route Start Time Stop Time Status Last Admin Dose Admin Baclofen 10 mg BID PO 05/04/25 10:00 05/05/25 10:57 10 MG Acetaminophen 650 mg Q6HP PRN PO 05/03/25 20:00 05/05/25 08:17 650 MG Ondansetron HCl 4 mg Q4HP PRN IV 05/03/25 20:00 Morphine Sulfate 2 mg Q4HPRN PRN IV 05/03/25 20:00 05/04/25 09:07 2 MG Cefepime HCl 50 ml @ 12.5 mls/hr Q12HR IV 05/04/25 10:00 UNV Cefepime HCl 50 ml @ 12.5 mls/hr Q8H IV 05/04/25 08:30 05/05/25 08:16 12.5 MLS/HR Sodium Chloride 1,000 ml @ 75 mls/hr [id number] IV 05/04/25 09:00 05/05/25 05:22 75 MLS/HR Enoxaparin Sodium 150 mg Q12HR SC 05/04/25 10:00 UNV Enoxaparin Sodium 150 mg BID SC 05/04/25 10:00 05/05/25 10:35 150 MG Vancomycin HCl 0 ml @ 0 mls/hr UD IV 05/04/25 10:15 Diltiazem HCl 30 mg Q6HR PO 05/05/25 00:00 05/05/25 05:18 30 MG Examination: GENERAL:Normal, LUNGS:Normal, CVS:Normal, NEURO:Normal laboratory and microbiology Laboratory Tests 05/05/25 05:42 Test 05/05/25 05:42 Range/Units Serum Glucose 151 H 74-106 mg/dL Problem List/Assessment/Plan Problem List/Assessment/Plan Sepsis Atrial fibrillation with rapid ventricular rate, unspecified, now with controlled rate Hypertension Rheumatoid arthritis Prediabetes HgbA1C 6.1% Acute kidney injury Elevated LFTs Cigar/alcohol abuse Morbid obesity Plan/Recommendation(Dr. Menendez): A transthoracic echocardiogram reveals an EF of 55%. [id number] VASc score: 2 points, HAS-BLED: 1 point. Continue therapeutic Lovenox while inpatient and transition to DOAC prior to discharge. Continue with rate control with diltiazem. Antiarrhythmic therapy contraindicated given unknown onset of atrial fibrillation. Continue septic workup per primary care team. Monitor ECG changes and notify. Continue sleep study as outpatient, suspected CHRISTIAN. Monitor and replete electrolytes as needed, keep potassium greater than four and magnesium greater than two. There is no further inpatient cardiac workup indicated at this time. The patient has been scheduled to follow up with Cardiology (Dr. Menendez) in the outpatient cardiac clinic on 05/27/2025 at 3:30pm. Thank you for allowing us to participate in this patient's care. Please call if you have any questions or concerns. This medical document was created using an electronic medical record system with voice recognition software and computerized dictation system. Although this document has been carefully reviewed, there might still be some phonetic and typographical errors. Occasional wrong-word or ``sound-alike substitutions may have occurred due to the inherent limitations of voice recognition software. These areas are purely typographical due to imperfections of the software programs and do not reflect any compromise in the patient's medical care. Please read the chart carefully and recognize, using context, where these substitutions have occurred. Plan discussed with: Patient Dietary Evaluation Review Comments: Nutrition Recommendation: 1) Consider CCHO 75gm + 2gm Na diet 2) Consider Glucerna 240ml TID if PO intake <50% 3) Refer Curb Setter for diabetes education Expected Outcomes/Goals: To meet >75% estimated needs GI symptoms to improve Fu 3-5 days Date of Service: May 05, 2025 Billing Provider: IVON ANGEL Common Visit Codes: [id number] INP/OBS CARE(HIGH) IVON ANGEL May 05, 2025 12:36
[2025-05-05 12:53] LABS: Hepatitis B Surface Antigen Negative (Negative)
--- NOTE | 2025-05-05 14:49 | DVHPNRES ---
Progress Note Date Seen: May 05, 2025 Resident Creating Document: JOZEF PATIÑO RESIDENT Medical Necessity Reason Pt with a Central, PICC or Fol: No Subjective Review of Systems Ish Lisa is a 54-year-old male with rheumatoid arthritis who came to the ED with intractable back pain. The patient mentions he has had back pain since 3 days. He describes the pain as 9/10 in intensity, aching in character and radiating to the left leg. The patient states that the pain is such that he can not move around. He states that bending forward worsens the pain. The patient denies any history of trauma. The patient states that he also feels weakness in his legs along with the pain. He has history of nausea and vomiting since 2 days with 2-3 episodes of nonbloody vomitus, with him not being able to keep anything down except water. Patient has a history of a cold 10 days back with no fever, chills or cough. Past medical history: Rheumatoid arthritis (Remicade-once every 6 weeks), diabetes-not on any medication, hypertension-not on any medication Past surgical history: Tonsillectomy, inguinal hernia repair Social & Personal history: lives at home with family Smokin Cigars on weekends Alcohol: 2-3 beers on weekends Drugs:denies Allergies: almonds Patient seen and examined at bedside. Patient is alert and oriented to time, place person and responding to all questions. Patient is in distress due to back pain. Eyes: No Pain, No Vision change, No Conjunctivae inflammation, No Eyelid inflammation, No Redness ENT: No Ear pain, No Ear discharge, No Nose pain, No Nose discharge, No Nose congestion, No Mouth pain, No Mouth swelling, No Throat pain, No Throat swelling Cardiovascular: No Chest Pain, No Palpitations, No Orthopnea, No Paroxysmal No Dyspnea, No Edema, No Lt Headedness Respiratory: No Cough, No Dry, No Shortness of breath, No SOB with exertion, No Wheezing, No Hemoptysis, No Pleuritic Pain, No Sputum Gastrointestinal: Nausea,Vomiting, No Abdominal Pain, No Diarrhea, No Constipation, No Melena, No Hematochezia Genitourinary: No Dysuria, No Frequency, No Incontinence, No Hematuria, No Retention 05/04- patient was seen at bedside today. His white count today was 13.9, AST was 186 ,ALT was 55. Urinalysis, urine culture, blood culture, respiratory culture ordered for the patient he was given 1 L bolus of NS and started on cefipime. The patient was running tachycardia on telemetry, EKG was ordered which showed AFib with RVR. Cardiology was consulted and patient was started on metoprolol, started on therapeutic Lovenox. 05/05- the patient was seen at bedside today. His white count today 6000. Repeat blood culture was positive for Gram-positive cocci, so another blood culture was ordered. Has had no fever spikes since the last one yesterday afternoon. Echo was done showed LVEF of 55%. Repeat echo was ordered by Cardiology today which showed atrial fibrillation. Objective vital signs Vital Sign Date Time Temp Pulse Resp B/P (MAP) Pulse Ox O2 Delivery O2 Flow Rate FiO2 05/05/25 12:56 99.7 96 20 111/83 (92) 96 99.7 05/04/25 01:24 Room Air* 0 21 Total Intake and Output 05/04/25 05/04/25 05/05/25 15:00 23:00 07:00 Intake Total 50 ml 1600 ml 1250 ml Output Total 540 ml Balance 50 ml 1600 ml 710 ml medications Current Medications Medications Dose Ordered Sig/Beronica Route Start Time Stop Time Status Last Admin Dose Admin Baclofen 10 mg BID PO 05/04/25 10:00 05/05/25 10:57 10 MG Acetaminophen 650 mg Q6HP PRN PO 05/03/25 20:00 05/05/25 08:17 650 MG Ondansetron HCl 4 mg Q4HP PRN IV 05/03/25 20:00 Morphine Sulfate 2 mg Q4HPRN PRN IV 05/03/25 20:00 05/04/25 09:07 2 MG Cefepime HCl 50 ml @ 12.5 mls/hr Q12HR IV 05/04/25 10:00 UNV Cefepime HCl 50 ml @ 12.5 mls/hr Q8H IV 05/04/25 08:30 05/05/25 08:16 12.5 MLS/HR Sodium Chloride 1,000 ml @ 75 mls/hr [id number] IV 05/04/25 09:00 05/05/25 05:22 75 MLS/HR Enoxaparin Sodium 150 mg Q12HR SC 05/04/25 10:00 UNV Enoxaparin Sodium 150 mg BID SC 05/04/25 10:00 05/05/25 10:35 150 MG Vancomycin HCl 0 ml @ 0 mls/hr UD IV 05/04/25 10:15 Diltiazem HCl 30 mg Q6HR PO 05/05/25 00:00 05/05/25 12:42 30 MG Examination General Appearance: Cooperative. Well developed. Well nourished. NAD. Head Exam: Normal inspection Neck Exam: Normal inspection. Non-tender. Normal alignment Pulmonary/Respiratory: Chest non-tender. decreased air entry bilaterally, no crackles, no wheezing. Cardiovascular/Chest: irregularly rate and rhythm. No murmurs. No JVD. Peripheral Pulses: 2+ Radial (R). 2+ Radial (L). 2+ Pedal (R). 2+ Pedal (L) Abdominal Exam: Normal bowel sounds. Soft. normal abdomen, no visible veins, Nontender. No hepatospenomegaly. No masses,red,erythematous linear area approximately 10 cm long Ankle Exam: Negative ankle edema Lower extremities: Negative lower extremity edema Neuro/Mental Status: A&O x4. Coherent. Thoughts/Psych: Normal thought pattern. Appropriate mood and affect. Good judgement and insight Skin Exam: Normal inspection. Normal color. Warm. Dry Patient has tenderness on palpation in lower lumbar and sacral area (L5-S1) and left paraspinal area. laboratory and microbiology Laboratory Tests 05/05/25 05:42 Test 05/05/25 05:42 Range/Units Serum Glucose 151 H 74-106 mg/dL Microbiology Date/Time Source Procedure Growth Status 05/04/25 13:30 Voided Urine Urine Culture - Preliminary Resulted 05/04/25 10:50 Blood Blood Culture - Preliminary Resulted 05/04/25 10:08 Nose MRSA Screen - Final Complete Labs and/or images reviewed: Labs reviewed by me, Image(s) reviewed by me Problem List/Assessment/Plan Problem List/Assessment/Plan Sepsis unspecified source for now Gram-positive bacteremia AFib with RVR with a secondary hypercoagulable state -initial set of blood cultures showed Gram-positive bacteremia -started on vancomycin and cefepime -repeated blood cultures on ordered urine culture, james cultures -consulted Cardiology due to AFib, advised to start on diltiazem and therapeutic Lovenox -continuously monitor telemetry and EKG changes -Echo-MILD LVH AND MILD LV DIASTOLIC DYSFUNCTION,LV EF IS 55% -continuously monitor labs and electrolytes Severe paraspinal muscle spasm -baclofen and flexeril -hot pack -ibuprofen -Lumbar spine CT-No acute fracture or dislocation. -Degenerative changes at L4-L5 and L5-S Intractable nausea and vomiting,possibly due to ? 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 Hyperbilirubinemia -total bilirubin 2.3 -monitor labs for now Left renal cyst - CT showed 3.1 cm -outpatient follow up PUD prophylaxis: protonix DVT prophylaxis: not indicated Goals of care: Full code, discussed for >23 minutes Plan discussed with patient Plan discussed with Dr Reyes Plan discussed with: Patient My Orders My Orders Orders - JOZEF PATIÑO Procedure Category Date Status Time Blood Culture PRAKASH 05/05/25 Logged 14:37 Dietary Evaluation Review Comments: Nutrition Recommendation: 1) Consider CCHO 75gm + 2gm Na diet 2) Consider Glucerna 240ml TID if PO intake <50% 3) Refer Pharmacy Consultant for diabetes education Expected Outcomes/Goals: To meet >75% estimated needs GI symptoms to improve Fu 3-5 days Date of Service: May 05, 2025 Billing Provider: DUSTIN REYES MD Common Visit Codes: [id number] INP/OBS CARE(HIGH) JOZEF PATIÑO RESIDENT May 05, 2025 14:49 DUSTIN REYES MD May 13, 2025 21:21
[2025-05-05 15:12] LABS: Hepatitis C Antibody Negative (Negative)
--- NOTE | 2025-05-05 18:20 | DVHINCON2 ---
Date Seen: May 04, 2025 Referring Physician MD Sivakumar Reason for Consultation New onset a-fib History of Present Illness This is a 54-year-old male with a PMH of [id number]-thfmegbvy diabetes mellitus, hypertension without antihypertensive therapy, rheumatoid arthritis on Remicade treatment every 6 weeks, cigar use, occasional alcohol use and morbid obesity who presented to the ED with complaint of lower back pain x three days. The patient presents with lower back pain radiating to the left lower extremity and associated with nausea, vomiting, and polyuria. Positional changes makes his back pain worse. Denies any trauma or heavy lifting. During admission to the telemetry floor the patient was noted to be tachycardic with a heart rate up to the 180s bpm on threat monitoring analyst. He underwent a baseline 12 lead electrocardiogram revealing an atrial fibrillation rhythm with rapid ventricular rate at 163 bpm. Complains of increased fatigue and lower back pain. Denies chest pain, palpitations, diaphoresis, SOB, dizziness, or syncope. Serial troponin levels are negative. Denies any history of cardiovascular disease or tachyarrhythmias. States his PCP referred him for a commercial parts professional evaluation as his "heart was beating funny" approximately 5-7 years ago. At that time he underwent an event monitor for one week and a transthoracic echocardiogram all with unremarkable results and no further follow ups. Patient was admitted to the hospital. I am asked to consult on this patient. Past Medical History Past medical history reviewed. No other significant than mentioned above. Past Surgical History Tonsillectomy Inguinal hernia repair Family History: Diabetes mellitus G8 MOTHER Hypertension G8 MOTHER G8 FATHER Allergies: Uncoded Allergies: almond (Allergy, Unknown, 05/04/25) Current Medications Current Medications Medications (Trade) Dose Ordered Sig/Beronica Route PRN Reason Start Time Stop Time Status Last Admin Metoprolol Tartrate (Lopressor Tablet) 25 mg BID PO 05/04/25 22:00 05/04/25 18:03 DC Diltiazem HCl (Cardizem Immediate Release Tab) 30 mg Q6HR PO 05/05/25 00:00 05/05/25 17:41 Vancomycin HCl 250 ml @ 200 mls/hr Q8H IV 05/05/25 21:00 Review of Systems Constitutional: Fatigue Ears, Nose, & Throat: No symptom reported Eyes: No symptom reported Neurological: No symptoms reported Pulmonary/Respiratory: No symptom reported Cardiovascular: No symptom reported Gastrointestinal: No symptom reported Genitourinary: No symptom reported Musculoskeletal: Lower back pain Skin: No symptom reported Psychiatric: No symptom reported Endocrine: No symptom reported Hemotologic/Lymphatic: No symptom reported Vital Signs Vital Signs Date Time Temp Pulse Resp B/P (MAP) Pulse Ox O2 Delivery O2 Flow Rate FiO2 05/05/25 17:41 96 116/89 05/05/25 16:51 98.2 20 94 98.2 05/04/25 01:24 Room Air* 0 21 Physical Exam GENERAL: Alert and oriented x 3. No acute distress. Morbidly obese. EYES: PERRL, EOMI. Anicteric. HENT: Moist mucous membranes. LUNGS: Clear to auscultation bilaterally. CARDIOVASCULAR: Irregularly irregular rate and rhythm. A-fib with RVR. ABDOMEN: Soft, non-tender and non-distended. EXTREMITIES: No edema. NEUROLOGIC: No focal neurological deficits. SKIN: Warm, dry. Redness under lower abdominal fold. Labs/Diagnostic Data Labs Test 05/05/25 05:42 05/04/25 10:08 05/04/25 06:26 05/03/25 14:45 Range/Units White Blood Count 6.0 # 4.4-10.8 10^3/uL Red Blood Count 4.30 L 4.5-5.90 10^6/uL Hemoglobin 13.0 L 13.5-17.5 g/dL Hematocrit 36.5 #L 41.0-53.0 % Mean Corpuscular Volume 84.8 80.0-100.0 fL Mean Corpuscular Hemoglobin 30.1 28.0-32.0 pg Mean Corpuscular Hemoglobin Concent 35.5 32.0-36.0 g/dL Red Cell Distribution Width 14.3 11.8-14.3 % Platelet Count 124 L 140-450 10^3/uL Mean Platelet Volume 8.2 6.9-10.8 fL Neutrophils (%) (Auto) 80.2 H 37.0-80.0 % Lymphocytes (%) (Auto) 9.5 L 10.0-50.0 % Monocytes (%) (Auto) 9.6 0.0-12.0 % Eosinophils (%) (Auto) 0.5 0.0-7.0 % Basophils (%) (Auto) 0.2 0.0-2.0 % Neutrophils # (Auto) 4.8 1.6-8.6 10 ^3/uL Lymphocytes # (Auto) 0.6 0.4-5.4 10 ^3/uL Monocytes # (Auto) 0.6 0-1.3 10 ^3/uL Eosinophils # (Auto) 0 0-0.8 10 ^3/uL Basophils # (Auto) 0 0-0.2 10 ^3/uL Nucleated Red Blood Cells 0.1 % Sodium Level 132 L 136-145 mmol/L Potassium Level 3.9 3.5-5.1 mmol/L Chloride Level 102 98-107 mmol/L Carbon Dioxide Level 20 20-31 mmol/L Anion Gap 10 5-15 Blood Urea Nitrogen 20 9-23 mg/dL Creatinine 1.07 0.700-1.30 mg/dL Glomerular Filtration Rate Calc 83 >90 mL/min BUN/Creatinine Ratio 18.7 10.0-20.0 Serum Glucose 151 H 74-106 mg/dL Calcium Level 8.6 L 8.7-10.4 mg/dL Magnesium Level 1.9 1.6-2.6 mg/dL Total Bilirubin 0.9 0.2-1.0 mg/dL Aspartate Amino Transferase (AST) 138 H 13-40 U/L Alanine Aminotransferase (ALT) 54 H 7-40 U/L Alkaline Phosphatase 42 L 46-116 U/L Total Protein 6.3 5.7-8.2 g/dL Albumin 3.5 3.2-4.8 g/dL Random Vancomycin Level 6.4 5-10 ug/mL Urine Color Yellow Yellow Urine Clarity Turbid H Clear Urine pH 5.5 5.0-9.0 Urine Specific [place] 1.029 1.001-1.035 Urine Protein 1+ H Negative Urine Ketones Negative Negative Urine Blood 3+ H Negative /uL Urine Nitrite Negative Negative Urine Bilirubin Negative Negative Urine Urobilinogen Normal Negative mg/dL Urine Leukocyte Esterase Negative Negative /uL Urine RBC 10 0 - 3 /hpf Urine Microscopic WBC 4 H 0-3 /HPF Urine Squamous Epithelial Cells Few <5 /hpf Urine Bacteria None seen None Seen /hpf Urine Glucose Trace Normal mg/dL Lactic Acid Level 1.1 0.4-2.0 mmol/L B-Type Natriuretic Peptide 29.55 0-100 pg/mL Triglycerides Level 132 < 150 mg/dL Cholesterol Level 111 < 200 mg/dL LDL Cholesterol 46 < 100 mg/dL HDL Cholesterol 39 L 40-59 mg/dL Hepatitis B Surface Antigen Negative Negative Hepatitis C Antibody Negative Negative Thyroid Stimulating Hormone (TSH) 1.87 0.55-4.78 uIU/mL Test 05/03/25 14:31 05/03/25 09:23 05/03/25 08:56 05/03/25 07:52 Range/Units Influenza Type A Antigen Negative Negative Influenza Type B Antigen Negative Negative Urine Mucus Few None Seen Troponin I High Sensitivity 8 </=54 ng/L Hemoglobin A1c 6.1 H <5.7 % A1C Lipase 31 12-53 U/L Test 05/03/25 00:00 Range/Units SARS-CoV-2 Antigen (Rapid) Negative NEGATIVE Microbiology Date/Time Source Procedure Growth Status 05/04/25 13:30 Voided Urine Urine Culture - Preliminary Resulted 05/04/25 10:50 Blood Blood Culture - Preliminary Resulted 05/04/25 10:08 Nose MRSA Screen - Final Complete Assessment Sepsis, ?Source. Atrial fibrillation with rapid ventricular rate, unspecified. Rule out structural heart disease. Rheumatoid arthritis. Prediabetes HgbA1C 6.1%. Acute kidney injury. Elevated LFTs. Cigar/alcohol abuse. Morbid obesity. Plan/Recommendation I agree with your ongoing assessment and care of plan. Patient has been seen by Samara Tirado NP on my behalf. We have discussed the plan with the patient. The patient presents with a newly diagnosed atrial fibrillation rhythm now at an uncontrolled rate for which he underwent a baseline 12 lead electrocardiogram. Initiate metoprolol IV x1 and magnesium rider. Antiarrhythmic therapy contraindicated given unknown onset of atrial fibrillation. Initiate therapeutic Lovenox ([id number] Score, ?, HAS-BLED Score, 0 points). We will continue further cardiac evaluation with a transthoracic echocardiogram to evaluate cardiac function. Continue septic workup per primary care team. Monitor ECG changes and notify. Continue sleep study as outpatient, suspected CHRISTIAN. Additional plan as per the hospital course. Plan discussed with: Patient NYHA Physical activity limitations: NA Date of Service: May 05, 2025 Billing Provider: MESHA HERNANDES MD Cardiology Common Codes: 48040-AUXYPOU INP/OBS CARE (High), 67487-[id number] CARE 30-74 MIN MESHA HERNANDES MD May 05, 2025 18:20
[2025-05-05] MEDS: VANCOMYCIN 1.25GM/250ML 250 ML IV SCH (21:57)
[2025-05-06] VITALS (8 sets, daily range): BP systolic 117–143; BP diastolic 80–103; PULSE 80–112; RESP 18–20; TEMP 97.6–98.7; O2SAT 95–100
[2025-05-06 06:19] LABS: Hematocrit 36.3 % (41.0-53.0); Hemoglobin 12.9 g/dL (13.5-17.5); Mean Corpuscular Hemoglobin 29.8 pg (28.0-32.0); Mean Corpuscular Volume 83.9 fL (80.0-100.0); Nucleated Red Blood Cells % 0.2 %
[2025-05-06 06:26] LABS: Chloride 98 mmol/L (98-107); Potassium 3.9 mmol/L (3.5-5.1)
[2025-05-06 06:27] LABS: Anion Gap 8 (5-15); Carbon Dioxide 24 mmol/L (20-31)
[2025-05-06 06:29] LABS: Calcium 8.7 mg/dL (8.7-10.4); Sodium 130 mmol/L (136-145)
[2025-05-06 06:32] LABS: BUN/Creatinine Ratio 12.6 (10.0-20.0); Blood Urea Nitrogen 13 mg/dL (9-23)
[2025-05-06 06:37] LABS: Glucose 182 mg/dL (74-106)
--- NOTE | 2025-05-06 07:44 | ECG ---
[facility] Test Date: 2025-05-06 Test Time: 00:02:02 Pat Name: JANAY OLSON Department: Respiratoy Room: 0215T B Gender: M Field Consultant: ROBINSON : 1970 Requested By: JOZEF PATIÑO Order Number: [id number] Reading MD: Faustino Menendez Measurements Intervals [place] Rate: 105 P: 0 MN: 0 QRS: 17 QRSD: 94 T: 57 QT: 340 QTc: 450 Interpretive Statements Atrial fibrillation Abnormal inferior Q waves Baseline wander in lead(s) V2 Electronically Signed On 05-06-2025 15:09:44 PDT by Faustino Menendez Please click the below link to view image of tracing.
--- NOTE | 2025-05-06 13:16 | DVHPN2 ---
Consult Progress Note Subjective Other Systems: Patient in atrial fibrillation with controlled rate on monitor Objective vital signs Vital Sign Date Time Temp Pulse Resp B/P (MAP) Pulse Ox O2 Delivery O2 Flow Rate FiO2 05/06/25 11:35 84 117/80 05/06/25 09:00 97.6 19 97 97.6 05/05/25 20:00 Nasal Cannula* 2 28 Total Intake and Output 05/05/25 05/05/25 05/06/25 15:00 23:00 07:00 Intake Total 50 ml 1600 ml 800 ml Output Total 600 ml 1100 ml Balance 50 ml 1000 ml -300 ml medications Current Medications Medications Dose Ordered Sig/Beronica Route Start Time Stop Time Status Last Admin Dose Admin Baclofen 10 mg BID PO 05/04/25 10:00 05/06/25 09:21 10 MG Acetaminophen 650 mg Q6HP PRN PO 05/03/25 20:00 05/05/25 16:20 650 MG Ondansetron HCl 4 mg Q4HP PRN IV 05/03/25 20:00 Morphine Sulfate 2 mg Q4HPRN PRN IV 05/03/25 20:00 05/06/25 04:59 2 MG Cefepime HCl 50 ml @ 12.5 mls/hr Q12HR IV 05/04/25 10:00 UNV Cefepime HCl 50 ml @ 12.5 mls/hr Q8H IV 05/04/25 08:30 05/06/25 09:21 12.5 MLS/HR Sodium Chloride 1,000 ml @ 75 mls/hr [id number] IV 05/04/25 09:00 05/05/25 05:22 75 MLS/HR Enoxaparin Sodium 150 mg Q12HR SC 05/04/25 10:00 UNV Enoxaparin Sodium 150 mg BID SC 05/04/25 10:00 05/06/25 09:21 150 MG Vancomycin HCl 0 ml @ 0 mls/hr UD IV 05/04/25 10:15 Diltiazem HCl 30 mg Q6HR PO 05/05/25 00:00 05/06/25 11:35 30 MG Vancomycin HCl 250 ml @ 200 mls/hr Q8H IV 05/05/25 21:00 05/06/25 05:01 200 MLS/HR Examination: GENERAL:Normal, LUNGS:Normal, CVS:Normal (Atrial fibrillation with controlled rate), NEURO:Normal laboratory and microbiology Laboratory Tests 05/06/25 05:32 Test 05/06/25 05:32 Range/Units Serum Glucose 182 H 74-106 mg/dL Problem List/Assessment/Plan Problem List/Assessment/Plan Bacteremia, rule out infective endocarditis Atrial fibrillation with rapid ventricular rate, unspecified, now with controlled rate Hypertension Rheumatoid arthritis Prediabetes HgbA1C 6.1% Acute kidney injury Elevated LFTs Cigar/alcohol abuse Morbid obesity Plan/Recommendation(Dr. Cortes): A transthoracic echocardiogram reveals an EF of 55%. [id number] VASc score: 2 points, HAS-BLED: 1 point. Continue therapeutic Lovenox while inpatient and transition to DOAC prior to discharge. Continue with rate control with diltiazem. Antiarrhythmic therapy contraindicated given unknown onset of atrial fibrillation. Monitor ECG changes and notify. Monitor and replete electrolytes as needed, keep potassium greater than four and magnesium greater than two. Given bacteremia and unknown source of infection, primary team reconsulted cardiology to evaluate for a transesophageal echocardiogram to evaluate for infective endocarditis. Plan for transesophageal echocardiogram discussed with the patient including procedure. Patient is agreeable. We will schedule the patient on 05/07/2025 at soonest availability. Continue septic workup per primary care team. Thank you for allowing us to participate in this patient's care. Please call if you have any questions or concerns. This medical document was created using an electronic medical record system with voice recognition software and computerized dictation system. Although this document has been carefully reviewed, there might still be some phonetic and typographical errors. Occasional wrong-word or ``sound-alike substitutions may have occurred due to the inherent limitations of voice recognition software. These areas are purely typographical due to imperfections of the software programs and do not reflect any compromise in the patient's medical care. Please read the chart carefully and recognize, using context, where these substitutions have occurred. Plan discussed with: Patient Dietary Evaluation Review Comments: Nutrition Recommendation: 1) Consider CCHO 75gm + 2gm Na diet 2) Consider Glucerna 240ml TID if PO intake <50% 3) Refer Air Traffic Supervisor for diabetes education Expected Outcomes/Goals: To meet >75% estimated needs GI symptoms to improve Fu 3-5 days Date of Service: May 06, 2025 Billing Provider: IVON ANGEL Common Visit Codes: [id number] INP/OBS CARE(HIGH) IVON ANGEL May 06, 2025 13:16
--- NOTE | 2025-05-06 18:06 | DVHPNRES ---
Progress Note Date Seen: May 06, 2025 Resident Creating Document: JOZEF PATIÑO RESIDENT Medical Necessity Reason Pt with a Central, PICC or Fol: No Subjective Review of Systems Ish Lisa is a 54-year-old male with rheumatoid arthritis who came to the ED with intractable back pain. The patient mentions he has had back pain since 3 days. He describes the pain as 9/10 in intensity, aching in character and radiating to the left leg. The patient states that the pain is such that he can not move around. He states that bending forward worsens the pain. The patient denies any history of trauma. The patient states that he also feels weakness in his legs along with the pain. He has history of nausea and vomiting since 2 days with 2-3 episodes of nonbloody vomitus, with him not being able to keep anything down except water. Patient has a history of a cold 10 days back with no fever, chills or cough. Past medical history: Rheumatoid arthritis (Remicade-once every 6 weeks), diabetes-not on any medication, hypertension-not on any medication Past surgical history: Tonsillectomy, inguinal hernia repair Social & Personal history: lives at home with family Smokin Cigars on weekends Alcohol: 2-3 beers on weekends Drugs:denies Allergies: almonds Patient seen and examined at bedside. Patient is alert and oriented to time, place person and responding to all questions. Patient is in distress due to back pain. Eyes: No Pain, No Vision change, No Conjunctivae inflammation, No Eyelid inflammation, No Redness ENT: No Ear pain, No Ear discharge, No Nose pain, No Nose discharge, No Nose congestion, No Mouth pain, No Mouth swelling, No Throat pain, No Throat swelling Cardiovascular: No Chest Pain, No Palpitations, No Orthopnea, No Paroxysmal No Dyspnea, No Edema, No Lt Headedness Respiratory: No Cough, No Dry, No Shortness of breath, No SOB with exertion, No Wheezing, No Hemoptysis, No Pleuritic Pain, No Sputum Gastrointestinal: Nausea,Vomiting, No Abdominal Pain, No Diarrhea, No Constipation, No Melena, No Hematochezia Genitourinary: No Dysuria, No Frequency, No Incontinence, No Hematuria, No Retention 05/04- patient was seen at bedside today. His white count today was 13.9, AST was 186 ,ALT was 55. Urinalysis, urine culture, blood culture, respiratory culture ordered for the patient he was given 1 L bolus of NS and started on cefipime. The patient was running tachycardia on telemetry, EKG was ordered which showed AFib with RVR. Cardiology was consulted and patient was started on metoprolol, started on therapeutic Lovenox. 05/05- the patient was seen at bedside today. His white count today 6000. Repeat blood culture was positive for Gram-positive cocci, so another blood culture was ordered. Has had no fever spikes since the last one yesterday afternoon. Echo was done showed LVEF of 55%. Repeat ekg was ordered by Cardiology today which showed atrial fibrillation. 05/06- patient was seen at bedside today. His white count today was 5.9. Vitals were remained stable. Patient is on 2 L oxygen by nasal cannula. Repeat blood cultures grew Gram-positive cocci, staph aureus. Repeat cardiology consult was ordered for possible ABRAHAM as we had a suspicion of infective endocarditis. Cardiology saw the patient and scheduled him for ABRAHAM on 05/07/2025. Objective vital signs Vital Sign Date Time Temp Pulse Resp B/P (MAP) Pulse Ox O2 Delivery O2 Flow Rate FiO2 05/06/25 17:49 102 138/92 05/06/25 17:48 18 05/06/25 17:00 98.4 100 98.4 05/06/25 08:05 Nasal Cannula* 2 28 Total Intake and Output 05/05/25 05/05/25 05/06/25 15:00 23:00 07:00 Intake Total 50 ml 1600 ml 800 ml Output Total 600 ml 1100 ml Balance 50 ml 1000 ml -300 ml medications Current Medications Medications Dose Ordered Sig/Beronica Route Start Time Stop Time Status Last Admin Dose Admin Baclofen 10 mg BID PO 05/04/25 10:00 05/06/25 09:21 10 MG Acetaminophen 650 mg Q6HP PRN PO 05/03/25 20:00 05/05/25 16:20 650 MG Ondansetron HCl 4 mg Q4HP PRN IV 05/03/25 20:00 Morphine Sulfate 2 mg Q4HPRN PRN IV 05/03/25 20:00 05/06/25 15:04 2 MG Cefepime HCl 50 ml @ 12.5 mls/hr Q12HR IV 05/04/25 10:00 UNV Cefepime HCl 50 ml @ 12.5 mls/hr Q8H IV 05/04/25 08:30 05/06/25 15:53 12.5 MLS/HR Sodium Chloride 1,000 ml @ 75 mls/hr [id number] IV 05/04/25 09:00 05/06/25 15:03 75 MLS/HR Enoxaparin Sodium 150 mg Q12HR SC 05/04/25 10:00 UNV Enoxaparin Sodium 150 mg BID SC 05/04/25 10:00 05/06/25 09:21 150 MG Vancomycin HCl 0 ml @ 0 mls/hr UD IV 05/04/25 10:15 Diltiazem HCl 30 mg Q6HR PO 05/05/25 00:00 05/06/25 17:49 30 MG Vancomycin HCl 250 ml @ 200 mls/hr Q8H IV 05/05/25 21:00 05/06/25 13:57 200 MLS/HR Examination General Appearance: Cooperative. Well developed. Well nourished. NAD. Head Exam: Normal inspection Neck Exam: Normal inspection. Non-tender. Normal alignment Pulmonary/Respiratory: Chest non-tender. decreased air entry bilaterally, no crackles, no wheezing. Cardiovascular/Chest: irregularly rate and rhythm. No murmurs. No JVD. Peripheral Pulses: 2+ Radial (R). 2+ Radial (L). 2+ Pedal (R). 2+ Pedal (L) Abdominal Exam: Normal bowel sounds. Soft. normal abdomen, no visible veins, Nontender. No hepatospenomegaly. No masses,red,erythematous linear area approximately 10 cm long Ankle Exam: Negative ankle edema Lower extremities: Negative lower extremity edema Neuro/Mental Status: A&O x4. Coherent. Thoughts/Psych: Normal thought pattern. Appropriate mood and affect. Good judgement and insight Skin Exam: Normal inspection. Normal color. Warm. Dry Patient has tenderness on palpation in lower lumbar and sacral area (L5-S1) and left paraspinal area. laboratory and microbiology Laboratory Tests 05/06/25 05:32 Test 05/06/25 05:32 Range/Units Serum Glucose 182 H 74-106 mg/dL Microbiology Date/Time Source Procedure Growth Status 05/05/25 14:50 Blood Blood Culture - Preliminary Resulted 05/04/25 13:30 Voided Urine Urine Culture - Preliminary Resulted 05/04/25 10:08 Nose MRSA Screen - Final Complete Labs and/or images reviewed: Labs reviewed by me, Image(s) reviewed by me Problem List/Assessment/Plan Problem List/Assessment/Plan Sepsis, unspecified source for now ? Infective endocarditis Gram-positive bacteremia AFib with RVR with a secondary hypercoagulable state -initial set of blood cultures showed Gram-positive bacteremia -started on vancomycin and cefepime -repeated blood cultures on ordered urine culture, james cultures -consulted Cardiology due to AFib, advised to start on diltiazem and therapeutic Lovenox -continuously monitor telemetry and EKG changes -Echo-MILD LVH AND MILD LV DIASTOLIC DYSFUNCTION,LV EF IS 55% -continuously monitor labs and electrolytes -pending ABRAHAM on 05/07/2025 Severe paraspinal muscle spasm -baclofen and flexeril -hot pack -ibuprofen -Lumbar spine CT-No acute fracture or dislocation. -Degenerative changes at L4-L5 and L5-S Intractable nausea and vomiting,possibly due to ? 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 Hyperbilirubinemia -total bilirubin 2.3 -monitor labs for now Left renal cyst - CT showed 3.1 cm -outpatient follow up PUD prophylaxis: protonix DVT prophylaxis: not indicated Goals of care: Full code, discussed for >23 minutes Plan discussed with patient Plan discussed with Dr Reyes Plan discussed with: Patient My Orders My Orders Orders - JOZEF PATIÑO RESIDENT Procedure Category Date Status Time * Dietary Consult CONS 05/06/25 Transmitted 02:29 Creatinine LAB 05/07/25 Verified 04:00 * Cardiology Consult CONS 05/06/25 Transmitted 12:44 Dietary Evaluation Review Comments: Nutrition Recommendation: 1) Consider CCHO 75gm + 2gm Na diet 2) Consider Glucerna 240ml TID if PO intake <50% 3) Refer Display Fabricator for diabetes education Expected Outcomes/Goals: To meet >75% estimated needs GI symptoms to improve Fu 3-5 days Date of Service: May 06, 2025 Billing Provider: DUSTIN REYES MD Common Visit Codes: [id number] INP/OBS CARE(HIGH) JONOJOZEF PENDLETON RESIDENT May 06, 2025 18:06 DUSTIN REYES MD May 13, 2025 21:22
--- NOTE | 2025-05-06 22:26 | DVHPN2 ---
Consult Progress Note Subjective Other Systems: Patient was seen and evaluated in follow up. Patient in atrial fibrillation with controlled rate on monitor. He is on 2 LPM NC. Telemetry reviewed. Objective vital signs Vital Sign Date Time Temp Pulse Resp B/P (MAP) Pulse Ox O2 Delivery O2 Flow Rate FiO2 05/06/25 13:00 98.3 84 19 117/80 (92) 97 98.3 05/05/25 20:00 Nasal Cannula* 2 28 Total Intake and Output 05/05/25 05/05/25 05/06/25 15:00 23:00 07:00 Intake Total 50 ml 1600 ml 800 ml Output Total 600 ml 1100 ml Balance 50 ml 1000 ml -300 ml medications Current Medications Medications Dose Ordered Sig/Beronica Route Start Time Stop Time Status Last Admin Dose Admin Baclofen 10 mg BID PO 05/04/25 10:00 05/06/25 09:21 10 MG Acetaminophen 650 mg Q6HP PRN PO 05/03/25 20:00 05/05/25 16:20 650 MG Ondansetron HCl 4 mg Q4HP PRN IV 05/03/25 20:00 Morphine Sulfate 2 mg Q4HPRN PRN IV 05/03/25 20:00 05/06/25 04:59 2 MG Cefepime HCl 50 ml @ 12.5 mls/hr Q12HR IV 05/04/25 10:00 UNV Cefepime HCl 50 ml @ 12.5 mls/hr Q8H IV 05/04/25 08:30 05/06/25 09:21 12.5 MLS/HR Sodium Chloride 1,000 ml @ 75 mls/hr [id number] IV 05/04/25 09:00 05/05/25 05:22 75 MLS/HR Enoxaparin Sodium 150 mg Q12HR SC 05/04/25 10:00 UNV Enoxaparin Sodium 150 mg BID SC 05/04/25 10:00 05/06/25 09:21 150 MG Vancomycin HCl 0 ml @ 0 mls/hr UD IV 05/04/25 10:15 Diltiazem HCl 30 mg Q6HR PO 05/05/25 00:00 05/06/25 11:35 30 MG Vancomycin HCl 250 ml @ 200 mls/hr Q8H IV 05/05/25 21:00 05/06/25 13:57 200 MLS/HR Examination: GENERAL:Normal, HEENT:Normal, NECK:Normal, LUNGS:Normal, CVS:Normal (Atrial fibrillation with controlled rate), ABDOMEN:Normal, SKIN:Normal, NEURO:Normal laboratory and microbiology Laboratory Tests 05/06/25 05:32 Test 05/06/25 05:32 Range/Units Serum Glucose 182 H 74-106 mg/dL Problem List/Assessment/Plan Problem List/Assessment/Plan Problem List Bacteremia, rule out infective endocarditis. Atrial fibrillation with rapid ventricular rate, unspecified, now with controlled rate. Hypertension. Rheumatoid arthritis. Prediabetes HgbA1C 6.1%. Acute kidney injury. Elevated LFTs. Cigar/alcohol abuse. Morbid obesity. Plan/Recommendation Continued all current supportive medical care. Patient has been seen by Glendy Spann NP on my behalf, her and I discussed the plan with the patient. A transthoracic echocardiogram reveals an EF of 55%. [id number] VASc score: 2 points, HAS-BLED: 1 point. Continue therapeutic Lovenox while inpatient and transition to DOAC prior to discharge. Continue with rate control with diltiazem. Antiarrhythmic therapy contraindicated given unknown onset of atrial fibrillation. Monitor ECG changes and notify. Monitor and replete electrolytes as needed, keep potassium greater than four and magnesium greater than two. Given bacteremia and unknown source of infection, primary team reconsulted cardiology to evaluate for a transesophageal echocardiogram to evaluate for infective endocarditis. Plan for transesophageal echocardiogram discussed with the patient including procedure. Patient is agreeable. We will schedule the patient on 05/07/2025 at soonest availability. Continue septic workup per primary care team. Additional plan as per the hospital course. Plan discussed with: Patient Dietary Evaluation Review Comments: Nutrition Recommendation: 1) Consider CCHO 75gm + 2gm Na diet 2) Consider Glucerna 240ml TID if PO intake <50% 3) Refer [employer] for diabetes education Expected Outcomes/Goals: To meet >75% estimated needs GI symptoms to improve Fu 3-5 days Date of Service: May 06, 2025 Billing Provider: MESHA HERNANDES MD Cardiology Common Codes: [id number] [facility] MESHA HERNANDES MD May 06, 2025 14:25
[2025-05-07] VITALS (13 sets, daily range): BP systolic 119–151; BP diastolic 78–116; PULSE 87–121; RESP 12–24; TEMP 98.1–99.6; O2SAT 92–98
[2025-05-07 02:57] LABS: Potassium 3.6 mmol/L (3.5-5.1)
[2025-05-07 02:58] LABS: Anion Gap 10 (5-15); Carbon Dioxide 22 mmol/L (20-31)
[2025-05-07 02:59] LABS: Calcium 8.8 mg/dL (8.7-10.4); Chloride 98 mmol/L (98-107); Sodium 130 mmol/L (136-145)
[2025-05-07 03:03] LABS: BUN/Creatinine Ratio 11.8 (10.0-20.0); Blood Urea Nitrogen 11 mg/dL (9-23)
[2025-05-07 03:06] LABS: Hematocrit 35.9 % (41.0-53.0); Hemoglobin 12.6 g/dL (13.5-17.5); Mean Corpuscular Hemoglobin 29.3 pg (28.0-32.0); Mean Corpuscular Volume 83.6 fL (80.0-100.0); Nucleated Red Blood Cells % 0.2 %
[2025-05-07 03:08] LABS: Glucose 145 mg/dL (74-106)
[2025-05-07 03:23] LABS: INR 1.05 (0.9-1.15); Partial Thromboplastin Time 26.5 SEC (24.5-34.5); Prothrombin Time 11.1 sec (9.3-11.8)
--- NOTE | 2025-05-07 08:32 | ECG ---
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
[2025-05-07] MEDS: POTASSIUM CHL 20MEQ/100ML 100 ML IV ONE (10:08)
--- NOTE | 2025-05-07 12:41 | DVHPNRES ---
Progress Note Date Seen: May 07, 2025 Resident Creating Document: JOZEF PATIÑO RESIDENT Medical Necessity Reason Pt with a Central, PICC or Fol: No Subjective Review of Systems Ish Lisa is a 54-year-old male with rheumatoid arthritis who came to the ED with intractable back pain. The patient mentions he has had back pain since 3 days. He describes the pain as 9/10 in intensity, aching in character and radiating to the left leg. The patient states that the pain is such that he can not move around. He states that bending forward worsens the pain. The patient denies any history of trauma. The patient states that he also feels weakness in his legs along with the pain. He has history of nausea and vomiting since 2 days with 2-3 episodes of nonbloody vomitus, with him not being able to keep anything down except water. Patient has a history of a cold 10 days back with no fever, chills or cough. Past medical history: Rheumatoid arthritis (Remicade-once every 6 weeks), diabetes-not on any medication, hypertension-not on any medication Past surgical history: Tonsillectomy, inguinal hernia repair Social & Personal history: lives at home with family Smokin Cigars on weekends Alcohol: 2-3 beers on weekends Drugs:denies Allergies: almonds Patient seen and examined at bedside. Patient is alert and oriented to time, place person and responding to all questions. Patient is in distress due to back pain. Eyes: No Pain, No Vision change, No Conjunctivae inflammation, No Eyelid inflammation, No Redness ENT: No Ear pain, No Ear discharge, No Nose pain, No Nose discharge, No Nose congestion, No Mouth pain, No Mouth swelling, No Throat pain, No Throat swelling Cardiovascular: No Chest Pain, No Palpitations, No Orthopnea, No Paroxysmal No Dyspnea, No Edema, No Lt Headedness Respiratory: No Cough, No Dry, No Shortness of breath, No SOB with exertion, No Wheezing, No Hemoptysis, No Pleuritic Pain, No Sputum Gastrointestinal: Nausea,Vomiting, No Abdominal Pain, No Diarrhea, No Constipation, No Melena, No Hematochezia Genitourinary: No Dysuria, No Frequency, No Incontinence, No Hematuria, No Retention 05/04- patient was seen at bedside today. His white count today was 13.9, AST was 186 ,ALT was 55. Urinalysis, urine culture, blood culture, respiratory culture ordered for the patient he was given 1 L bolus of NS and started on cefipime. The patient was running tachycardia on telemetry, EKG was ordered which showed AFib with RVR. Cardiology was consulted and patient was started on metoprolol, started on therapeutic Lovenox. 05/05- the patient was seen at bedside today. His white count today 6000. Repeat blood culture was positive for Gram-positive cocci, so another blood culture was ordered. Has had no fever spikes since the last one yesterday afternoon. Echo was done showed LVEF of 55%. Repeat ekg was ordered by Cardiology today which showed atrial fibrillation. 05/06- patient was seen at bedside today. His white count today was 5.9. Vitals were remained stable. Patient is on 2 L oxygen by nasal cannula. Repeat blood cultures grew Gram-positive cocci, staph aureus. Repeat cardiology consult was ordered for possible ABRAHAM as we had a suspicion of infective endocarditis. Cardiology saw the patient and scheduled him for ABRAHAM on 05/07/2025. 05/07- patient was seen at bedside today. White count today was 8.3. 3rd Blood culture also was positive for Gram-positive cocci in clusters. IV antibiotics were continued. Pending ABRAHAM by Cardiology today. Wound care consult and consult for PT evaluation was placed today. Objective vital signs Vital Sign Date Time Temp Pulse Resp B/P (MAP) Pulse Ox O2 Delivery O2 Flow Rate FiO2 05/07/25 12:19 90 18 119/78 05/07/25 09:00 98.5 98 98.5 05/06/25 20:00 Nasal Cannula* 2 28 Total Intake and Output 05/06/25 05/06/25 05/07/25 15:00 23:00 07:00 Intake Total 1200 ml 1400 ml 950 ml Output Total 700 ml Balance 1200 ml 1400 ml 250 ml medications Current Medications Medications Dose Ordered Sig/Beronica Route Start Time Stop Time Status Last Admin Dose Admin Baclofen 10 mg BID PO 05/04/25 10:00 05/07/25 10:10 10 MG Acetaminophen 650 mg Q6HP PRN PO 05/03/25 20:00 05/05/25 16:20 650 MG Ondansetron HCl 4 mg Q4HP PRN IV 05/03/25 20:00 Morphine Sulfate 2 mg Q4HPRN PRN IV 05/03/25 20:00 05/07/25 12:19 2 MG Cefepime HCl 50 ml @ 12.5 mls/hr Q12HR IV 05/04/25 10:00 UNV Cefepime HCl 50 ml @ 12.5 mls/hr Q8H IV 05/04/25 08:30 05/07/25 10:10 12.5 MLS/HR Sodium Chloride 1,000 ml @ 75 mls/hr [id number] IV 05/04/25 09:00 05/06/25 15:03 75 MLS/HR Enoxaparin Sodium 150 mg Q12HR SC 05/04/25 10:00 UNV Enoxaparin Sodium 150 mg BID SC 05/04/25 10:00 05/06/25 21:37 150 MG Vancomycin HCl 0 ml @ 0 mls/hr UD IV 05/04/25 10:15 Diltiazem HCl 30 mg Q6HR PO 05/05/25 00:00 05/07/25 12:02 30 MG Vancomycin HCl 250 ml @ 200 mls/hr Q8H IV 05/05/25 21:00 05/07/25 05:43 200 MLS/HR Ketorolac Tromethamine 15 mg Q6HPRN PRN IV 05/07/25 10:30 05/12/25 10:29 Examination General Appearance: Cooperative. Well developed. Well nourished. NAD. Head Exam: Normal inspection Neck Exam: Normal inspection. Non-tender. Normal alignment Pulmonary/Respiratory: Chest non-tender. decreased air entry bilaterally, no crackles, no wheezing. Cardiovascular/Chest: irregularly rate and rhythm. No murmurs. No JVD. Peripheral Pulses: 2+ Radial (R). 2+ Radial (L). 2+ Pedal (R). 2+ Pedal (L) Abdominal Exam: Normal bowel sounds. Soft. obese abdomen, no visible veins, Nontender. No hepatospenomegaly. No masses,with red,erythematous linear area approximately 10 cm long Ankle Exam: Negative ankle edema Lower extremities: Negative lower extremity edema Neuro/Mental Status: A&O x4. Coherent. Thoughts/Psych: Normal thought pattern. Appropriate mood and affect. Good judgement and insight Skin Exam: Normal inspection. Normal color. Warm. Dry Patient has tenderness on palpation in lower lumbar and sacral area (L5-S1) and left paraspinal area. laboratory and microbiology Laboratory Tests 05/07/25 02:15 Test 05/07/25 02:15 Range/Units Serum Glucose 145 H 74-106 mg/dL Microbiology Date/Time Source Procedure Growth Status 05/05/25 14:50 Blood Blood Culture - Final Staphylococcus aureus Complete 05/04/25 13:30 Voided Urine Urine Culture - Final Complete 05/04/25 10:08 Nose MRSA Screen - Final Complete Labs and/or images reviewed: Labs reviewed by me, Image(s) reviewed by me Problem List/Assessment/Plan Problem List/Assessment/Plan Sepsis, unspecified source for now ? Infective endocarditis Gram-positive bacteremia AFib with RVR with a secondary hypercoagulable state -initial set of blood cultures showed Gram-positive bacteremia -started on vancomycin and cefepime -repeated blood cultures on ordered urine culture, james cultures -consulted Cardiology due to AFib, advised to start on diltiazem and therapeutic Lovenox -continuously monitor telemetry and EKG changes -Echo-MILD LVH AND MILD LV DIASTOLIC DYSFUNCTION,LV EF IS 55% -continuously monitor labs and electrolytes -pending ABRAHAM on 05/07/2025 Severe paraspinal muscle spasm -baclofen and flexeril -hot pack -ibuprofen -Lumbar spine CT-No acute fracture or dislocation. -Degenerative changes at L4-L5 and L5-S Intractable nausea and vomiting,possibly due to ? 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 Hyperbilirubinemia -total bilirubin 2.3 -monitor labs for now Left renal cyst - CT showed 3.1 cm -outpatient follow up PUD prophylaxis: protonix DVT prophylaxis: not indicated Goals of care: Full code, discussed for >23 minutes Plan discussed with patient Plan discussed with Dr Reyes Plan discussed with: Patient My Orders My Orders Orders - JOZEF PATIÑO RESIDENT Procedure Category Date Status Time * Cardiology Consult CONS 05/06/25 Transmitted 12:44 Vancomycin,Trough LAB 05/08/25 Verified 04:00 Creatinine LAB 05/08/25 Verified 04:00 Vancomycin Per ERICA 05/08/25 In Process Pharmacy Protoc 05:00 Ketorolac Injection PHA 05/07/25 In Process (Toradol Injection) 10:30 Dietary Evaluation Review Comments: Nutrition Recommendation: 1) Consider CCHO 75gm + 2gm Na diet 2) Consider Glucerna 240ml TID if PO intake <50% 3) Refer [employer] for diabetes education Expected Outcomes/Goals: To meet >75% estimated needs GI symptoms to improve Fu 3-5 days Date of Service: May 07, 2025 Billing Provider: DUSTIN REYES MD Common Visit Codes: [id number] INP/OBS CARE(HIGH) JOZEF PATIÑO RESIDENT May 07, 2025 12:41 DUSTIN REYES MD May 13, 2025 21:23
[2025-05-07] MEDS: LIDOCAINE VISCOUS 2% 15ML UD PO ONE (14:35)
[2025-05-07] MEDS: fentaNYL CITRATE 100 MCG/2 ML VL IV ONE (14:51)
[2025-05-07] MEDS: MIDAZOLAM HCL 2MG/2ML 2ml VIAL (1mg/ml) IV ONE (14:54)
--- NOTE | 2025-05-07 15:05 | DVHOP2 ---
Operative Report - 2 Report Details Date: 05/07/25 Preop Diagnosis: Aortic insufficiency Postop Diagnosis: Status post mihir/aortic insufficiency Surgeon: Francesco Menendez MD Anesthesiologist: Conscious sedation Anesthesia: Mac, Local Consent: The patient was informed of the risks and benefits of the procedure. These include but are not limited to complications of anesthesia, postoperative infection, incomplete relief of symptoms, recurrence of symptoms, damage to blood vessels, nerves and tendons, deep venous thrombosis, pulmonary embolism and possible need for repeat surgery in the future. Complications: No complications Findings: Aortic insufficiency normal LV function Indications for Surgery: Valvulopathy Name of Procedure Performed Transesophageal echocardiogram Procedure Details Procedure Details: Prior full informed consent obtained the patient was prepped and draped in usual fashion placed in left lateral and semi-Cano position. Patient given oral lidocaine to gargle. Conscious sedation given. A transesophageal probe was passed without difficulty and standard views obtained Conclusions 1. Technically good study. The patient is in a sinus tachycardia. 2. There appears to be mild left atrial enlargement with concentric LVH. 3. Valves appear to be structurally normal. Trileaflet aortic valve. The mitral valve is normal without calcification. The tricuspid and pulmonic appear to be structurally normal. No underlying anomalies identified. 4. Left ventricular systolic performance is preserved. EF of 60% with normal RV function. 5. Doppler reveals moderate tricuspid regurgitation. There was mild mitral insufficiency. [id number]-[id number] aortic insufficiency. 6. No pericardial effusion masses or vegetations discernible. Left atrial appendage is clean. No intra-atrial shunting and or other anomaly noted. A bubble study was not performed. Patient tolerated the procedure well there were no complications Condition Good Disposition Still a Patient Date of Service: May 07, 2025 Billing Provider: FRANCESCO MENENDEZ Sr., MD Cardiology Common Codes: 94603-[id number] INP/OBS CARE (High) Cardiology Procedure Codes: 20593-RBK W/IMG DOC INCL PROB ACQ FRANCESCO MENENDEZ Sr., MD May 07, 2025 15:04
--- NOTE | 2025-05-07 23:20 | DVHPN2 ---
Progress Note - Dictate Date Seen: May 07, 2025 Medical Necessity Reason Pt with a Central, PICC or Fol: No Subjective Patient was seen and evaluated in follow up. Patient underwent transesophageal echocardiogram which showed mild left atrial enlargement with concentric LVH. EF of 60% with normal RV function. Doppler reveals moderate tricuspid regurgitation. There was mild mitral insufficiency. Yrwnxyde-ol-ewduak aortic insufficiency. No pericardial effusion masses or vegetations discernible. Left atrial appendage is clean. No intra-atrial shunting and or other anomaly noted. A bubble study was not performed. Telemetry reviewed. vital signs Vital Sign Date Time Temp Pulse Resp B/P (MAP) Pulse Ox O2 Delivery O2 Flow Rate FiO2 05/07/25 17:00 98.7 121 17 121/90 (100) 94 98.7 05/07/25 08:00 Nasal Cannula* 2 28 Total Intake and Output 05/06/25 05/06/25 05/07/25 14:59 22:59 06:59 Intake Total 1200 ml 1400 ml 950 ml Output Total 700 ml Balance 1200 ml 1400 ml 250 ml medications Current Medications Medications Dose Ordered Sig/Beronica Route Start Time Stop Time Status Last Admin Dose Admin Baclofen 10 mg BID PO 05/04/25 10:00 05/07/25 10:10 10 MG Acetaminophen 650 mg Q6HP PRN PO 05/03/25 20:00 05/05/25 16:20 650 MG Ondansetron HCl 4 mg Q4HP PRN IV 05/03/25 20:00 Morphine Sulfate 2 mg Q4HPRN PRN IV 05/03/25 20:00 05/07/25 12:19 2 MG Cefepime HCl 50 ml @ 12.5 mls/hr Q12HR IV 05/04/25 10:00 UNV Cefepime HCl 50 ml @ 12.5 mls/hr Q8H IV 05/04/25 08:30 05/07/25 10:10 12.5 MLS/HR Sodium Chloride 1,000 ml @ 75 mls/hr [id number] IV 05/04/25 09:00 05/07/25 17:25 75 MLS/HR Enoxaparin Sodium 150 mg Q12HR SC 05/04/25 10:00 UNV Enoxaparin Sodium 150 mg BID SC 05/04/25 10:00 05/06/25 21:37 150 MG Vancomycin HCl 0 ml @ 0 mls/hr UD IV 05/04/25 10:15 Diltiazem HCl 30 mg Q6HR PO 05/05/25 00:00 05/07/25 12:02 30 MG Vancomycin HCl 250 ml @ 200 mls/hr Q8H IV 05/05/25 21:00 05/07/25 05:43 200 MLS/HR Ketorolac Tromethamine 15 mg Q6HPRN PRN IV 05/07/25 10:30 05/12/25 10:29 objective GENERAL: Alert and oriented x 3. No acute distress. EYES: PERRL, EOMI. Anicteric. HENT: Moist mucous membranes. LUNGS: Clear to auscultation bilaterally. CARDIOVASCULAR: Regular rate and rhythm. ABDOMEN: Soft, nontender and nondistended. EXTREMITIES: No edema. NEUROLOGIC: No focal neurological deficits. SKIN: Warm, dry. laboratory and microbiology Laboratory Tests 05/07/25 02:15 Test 05/07/25 02:15 Range/Units Serum Glucose 145 H 74-106 mg/dL Problem List Bacteremia, rule out infective endocarditis. Atrial fibrillation with rapid ventricular rate, unspecified, now with controlled rate. Hypertension. Rheumatoid arthritis. Prediabetes HgbA1C 6.1%. Acute kidney injury. Elevated LFTs. Cigar/alcohol abuse. Morbid obesity. Assessment/Plan Continued all current supportive medical care. Cardizem. IV antibiotics as ordered. Morphine for pain management. Additional plan as per the hospital course. Dietary Evaluation Review Comments: Nutrition Recommendation: 1) Consider CCHO 75gm + 2gm Na diet 2) Consider Glucerna 240ml TID if PO intake <50% 3) Refer [employer] for diabetes education Expected Outcomes/Goals: To meet >75% estimated needs GI symptoms to improve Fu 3-5 days Plan discussed with: Patient MESHA HERNANDES MD May 07, 2025 19:07
[2025-05-08] VITALS (8 sets, daily range): BP systolic 103–143; BP diastolic 70–89; PULSE 72–91; RESP 17–20; TEMP 97–98.9; O2SAT 95–97
[2025-05-08 07:32] LABS: Hematocrit 35.5 % (41.0-53.0); Hemoglobin 12.5 g/dL (13.5-17.5); Mean Corpuscular Hemoglobin 29.4 pg (28.0-32.0); Mean Corpuscular Volume 83.2 fL (80.0-100.0); Nucleated Red Blood Cells % 0.0 %
[2025-05-08 07:36] LABS: Chloride 99 mmol/L (98-107); Potassium 3.6 mmol/L (3.5-5.1)
[2025-05-08 07:37] LABS: Anion Gap 9 (5-15); Carbon Dioxide 22 mmol/L (20-31)
[2025-05-08 07:43] LABS: BUN/Creatinine Ratio 18.0 (10.0-20.0); Blood Urea Nitrogen 16 mg/dL (9-23); Calcium 8.7 mg/dL (8.7-10.4); Glucose 161 mg/dL (74-106); Sodium 130 mmol/L (136-145)
[2025-05-08] MEDS: KETOROLAC TROMETH 30 MG/ML 1ML VIAL IV PRN (08:37)
--- NOTE | 2025-05-08 16:03 | DVHPNRES ---
Progress Note Date Seen: May 08, 2025 Resident Creating Document: JOZEF PATIÑO RESIDENT Medical Necessity Reason Pt with a Central, PICC or Fol: No Subjective Review of Systems Ish Lisa is a 54-year-old male with rheumatoid arthritis who came to the ED with intractable back pain. The patient mentions he has had back pain since 3 days. He describes the pain as 9/10 in intensity, aching in character and radiating to the left leg. The patient states that the pain is such that he can not move around. He states that bending forward worsens the pain. The patient denies any history of trauma. The patient states that he also feels weakness in his legs along with the pain. He has history of nausea and vomiting since 2 days with 2-3 episodes of nonbloody vomitus, with him not being able to keep anything down except water. Patient has a history of a cold 10 days back with no fever, chills or cough. Past medical history: Rheumatoid arthritis (Remicade-once every 6 weeks), diabetes-not on any medication, hypertension-not on any medication Past surgical history: Tonsillectomy, inguinal hernia repair Social & Personal history: lives at home with family Smokin Cigars on weekends Alcohol: 2-3 beers on weekends Drugs:denies Allergies: almonds Patient seen and examined at bedside. Patient is alert and oriented to time, place person and responding to all questions. Patient is in distress due to back pain. Eyes: No Pain, No Vision change, No Conjunctivae inflammation, No Eyelid inflammation, No Redness ENT: No Ear pain, No Ear discharge, No Nose pain, No Nose discharge, No Nose congestion, No Mouth pain, No Mouth swelling, No Throat pain, No Throat swelling Cardiovascular: No Chest Pain, No Palpitations, No Orthopnea, No Paroxysmal No Dyspnea, No Edema, No Lt Headedness Respiratory: No Cough, No Dry, No Shortness of breath, No SOB with exertion, No Wheezing, No Hemoptysis, No Pleuritic Pain, No Sputum Gastrointestinal: Nausea,Vomiting, No Abdominal Pain, No Diarrhea, No Constipation, No Melena, No Hematochezia Genitourinary: No Dysuria, No Frequency, No Incontinence, No Hematuria, No Retention 05/04- patient was seen at bedside today. His white count today was 13.9, AST was 186 ,ALT was 55. Urinalysis, urine culture, blood culture, respiratory culture ordered for the patient he was given 1 L bolus of NS and started on cefipime. The patient was running tachycardia on telemetry, EKG was ordered which showed AFib with RVR. Cardiology was consulted and patient was started on metoprolol, started on therapeutic Lovenox. 05/05- the patient was seen at bedside today. His white count today 6000. Repeat blood culture was positive for Gram-positive cocci, so another blood culture was ordered. Has had no fever spikes since the last one yesterday afternoon. Echo was done showed LVEF of 55%. Repeat ekg was ordered by Cardiology today which showed atrial fibrillation. 05/06- patient was seen at bedside today. His white count today was 5.9. Vitals were remained stable. Patient is on 2 L oxygen by nasal cannula. Repeat blood cultures grew Gram-positive cocci, staph aureus. Repeat cardiology consult was ordered for possible ABRAHAM as we had a suspicion of infective endocarditis. Cardiology saw the patient and scheduled him for ABRAHAM on 05/07/2025. 05/07- patient was seen at bedside today. White count today was 8.3. 3rd Blood culture also was positive for Gram-positive cocci in clusters. IV antibiotics were continued. Pending ABRAHAM by Cardiology today. Wound care consult and consult for PT evaluation was placed today. 05/08- the patient was seen at bedside today. White count today was 7.7. His ABRAHAM revealed moderate tricuspid regurgitation, mild mitral insufficiency, moderate to severe aortic insufficiency, mild LA enlargement but no mass or vegetation. Cardiology is following up regularly. Physical therapy was ordered for the patient since he has been non ambulatory due to the back pain. Repeat blood cultures were ordered. Possible discharge tomorrow if blood cultures come back negative. Objective vital signs Vital Sign Date Time Temp Pulse Resp B/P (MAP) Pulse Ox O2 Delivery O2 Flow Rate FiO2 05/08/25 13:13 72 119/71 05/08/25 13:00 97.4 18 97 97.4 05/08/25 08:00 Nasal Cannula* 2 28 Total Intake and Output 05/07/25 05/07/25 05/08/25 15:00 23:00 07:00 Intake Total 50 ml 400 ml 1400 ml Output Total 600 ml 600 ml Balance 50 ml -200 ml 800 ml medications Current Medications Medications Dose Ordered Sig/Beronica Route Start Time Stop Time Status Last Admin Dose Admin Baclofen 10 mg BID PO 05/04/25 10:00 05/08/25 08:35 10 MG Acetaminophen 650 mg Q6HP PRN PO 05/03/25 20:00 05/05/25 16:20 650 MG Ondansetron HCl 4 mg Q4HP PRN IV 05/03/25 20:00 Morphine Sulfate 2 mg Q4HPRN PRN IV 05/03/25 20:00 05/07/25 23:00 2 MG Cefepime HCl 50 ml @ 12.5 mls/hr Q12HR IV 05/04/25 10:00 UNV Cefepime HCl 50 ml @ 12.5 mls/hr Q8H IV 05/04/25 08:30 05/08/25 08:35 12.5 MLS/HR Sodium Chloride 1,000 ml @ 75 mls/hr [id number] IV 05/04/25 09:00 05/07/25 17:25 75 MLS/HR Enoxaparin Sodium 150 mg Q12HR SC 05/04/25 10:00 UNV Enoxaparin Sodium 150 mg BID SC 05/04/25 10:00 05/08/25 08:37 150 MG Vancomycin HCl 0 ml @ 0 mls/hr UD IV 05/04/25 10:15 Diltiazem HCl 30 mg Q6HR PO 05/05/25 00:00 05/08/25 13:13 30 MG Vancomycin HCl 250 ml @ 200 mls/hr Q8H IV 05/05/25 21:00 05/08/25 13:12 200 MLS/HR Ketorolac Tromethamine 15 mg Q6HPRN PRN IV 05/07/25 10:30 05/12/25 10:29 05/08/25 08:37 15 MG Examination General Appearance: Cooperative. Well developed. Well nourished. NAD. Head Exam: Normal inspection Neck Exam: Normal inspection. Non-tender. Normal alignment Pulmonary/Respiratory: Chest non-tender. decreased air entry bilaterally, no crackles, no wheezing. Cardiovascular/Chest: irregularly rate and rhythm. No murmurs. No JVD. Peripheral Pulses: 2+ Radial (R). 2+ Radial (L). 2+ Pedal (R). 2+ Pedal (L) Abdominal Exam: Normal bowel sounds. Soft. obese abdomen, no visible veins, Nontender. No hepatospenomegaly. No masses,with red,erythematous linear area approximately 10 cm long Ankle Exam: Negative ankle edema Lower extremities: Negative lower extremity edema Neuro/Mental Status: A&O x4. Coherent. Thoughts/Psych: Normal thought pattern. Appropriate mood and affect. Good judgement and insight Skin Exam: Normal inspection. Normal color. Warm. Dry Patient has tenderness on palpation in lower lumbar and sacral area (L5-S1) and left paraspinal area. laboratory and microbiology Laboratory Tests 05/08/25 05:50 Test 05/08/25 05:50 Range/Units Serum Glucose 161 H 74-106 mg/dL Microbiology Date/Time Source Procedure Growth Status 05/05/25 14:50 Blood Blood Culture - Final Staphylococcus aureus Complete 05/04/25 13:30 Voided Urine Urine Culture - Final Complete 05/04/25 10:08 Nose MRSA Screen - Final Complete Labs and/or images reviewed: Labs reviewed by me, Image(s) reviewed by me Problem List/Assessment/Plan Problem List/Assessment/Plan Sepsis, unspecified source for now Ruled out Infective endocarditis Gram-positive bacteremia AFib with RVR with a secondary hypercoagulable state -3 set of blood cultures showed Gram-positive bacteremia -repeat blood culture -started on vancomycin and cefepime -repeated blood cultures on ordered urine culture, james cultures -consulted Cardiology due to AFib, advised to start on diltiazem and therapeutic Lovenox -continuously monitor telemetry and EKG changes -Echo-MILD LVH AND MILD LV DIASTOLIC DYSFUNCTION,LV EF IS 55% -continuously monitor labs and electrolytes -ABRAHAM -There appears to be mild left atrial enlargement with concentric LVH.EF of 60% with normal RV function. - Doppler reveals moderate tricuspid regurgitation. There was mild mitral insufficiency. [id number] aortic insufficiency. - No pericardial effusion masses or vegetations discernible. Left atrial appendage is clean. No intra-atrial shunting and or other anomaly noted. A bubble study was not performed Severe paraspinal muscle spasm -baclofen and flexeril -hot pack -ibuprofen -Lumbar spine CT-No acute fracture or dislocation. -Degenerative changes at L4-L5 and L5-S Intractable nausea and vomiting,possibly due to ? 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 Hyperbilirubinemia -total bilirubin 2.3 -monitor labs for now Left renal cyst - CT showed 3.1 cm -outpatient follow up PUD prophylaxis: protonix DVT prophylaxis: not indicated Goals of care: Full code, discussed for >23 minutes Plan discussed with patient Plan discussed with Dr Reyes Plan discussed with: Patient My Orders My Orders Orders - JOZEF PATIÑO Procedure Category Date Status Time Vancomycin Per ERICA 05/08/25 In Process Pharmacy Protoc 21:00 Blood Culture PRAKASH 05/08/25 In Process 11:20 Dietary Evaluation Review Comments: Nutrition Recommendation: 1) Consider CCHO 75gm + 2gm Na diet 2) Consider Glucerna 240ml TID if PO intake <50% 3) Refer Medicare Compliance Auditor for diabetes education Expected Outcomes/Goals: To meet >75% estimated needs GI symptoms to improve Fu 3-5 days Date of Service: May 08, 2025 Billing Provider: DUSTIN REYES MD Common Visit Codes: [id number] INP/OBS CARE(HIGH) JOZEF PATIÑO RESIDENT May 08, 2025 16:03 DUSTIN REYES MD May 13, 2025 21:23
--- NOTE | 2025-05-08 20:36 | DVHPN2 ---
Progress Note - Dictate Date Seen: May 08, 2025 Medical Necessity Reason Pt with a Central, PICC or Fol: No Subjective Patient was seen and evaluated in follow up. Patient is on 2 LPM NC. Patient is complaining of back pain. Pain does not radiate. Telemetry reviewed. vital signs Vital Sign Date Time Temp Pulse Resp B/P (MAP) Pulse Ox O2 Delivery O2 Flow Rate FiO2 05/08/25 09:00 97.6 72 18 119/71 (87) 97 97.6 05/07/25 20:00 Nasal Cannula* 2 28 Total Intake and Output 05/07/25 05/07/25 05/08/25 15:00 23:00 07:00 Intake Total 50 ml 400 ml 1400 ml Output Total 600 ml 600 ml Balance 50 ml -200 ml 800 ml medications Current Medications Medications Dose Ordered Sig/Beronica Route Start Time Stop Time Status Last Admin Dose Admin Baclofen 10 mg BID PO 05/04/25 10:00 05/08/25 08:35 10 MG Acetaminophen 650 mg Q6HP PRN PO 05/03/25 20:00 05/05/25 16:20 650 MG Ondansetron HCl 4 mg Q4HP PRN IV 05/03/25 20:00 Morphine Sulfate 2 mg Q4HPRN PRN IV 05/03/25 20:00 05/07/25 23:00 2 MG Cefepime HCl 50 ml @ 12.5 mls/hr Q12HR IV 05/04/25 10:00 UNV Cefepime HCl 50 ml @ 12.5 mls/hr Q8H IV 05/04/25 08:30 05/08/25 08:35 12.5 MLS/HR Sodium Chloride 1,000 ml @ 75 mls/hr [id number] IV 05/04/25 09:00 05/07/25 17:25 75 MLS/HR Enoxaparin Sodium 150 mg Q12HR SC 05/04/25 10:00 UNV Enoxaparin Sodium 150 mg BID SC 05/04/25 10:00 05/08/25 08:37 150 MG Vancomycin HCl 0 ml @ 0 mls/hr UD IV 05/04/25 10:15 Diltiazem HCl 30 mg Q6HR PO 05/05/25 00:00 05/08/25 05:26 30 MG Vancomycin HCl 250 ml @ 200 mls/hr Q8H IV 05/05/25 21:00 05/08/25 05:26 200 MLS/HR Ketorolac Tromethamine 15 mg Q6HPRN PRN IV 05/07/25 10:30 05/12/25 10:29 05/08/25 08:37 15 MG objective GENERAL: Alert and oriented x 3. No acute distress. EYES: PERRL, EOMI. Anicteric. HENT: Moist mucous membranes. LUNGS: Clear to auscultation bilaterally. CARDIOVASCULAR: Regular rate and rhythm. ABDOMEN: Soft, nontender and nondistended. EXTREMITIES: No edema. NEUROLOGIC: No focal neurological deficits. SKIN: Warm, dry. laboratory and microbiology Laboratory Tests 05/08/25 05:50 Test 05/08/25 05:50 Range/Units Serum Glucose 161 H 74-106 mg/dL Problem List Bacteremia, rule out infective endocarditis. Atrial fibrillation with rapid ventricular rate, unspecified, now with controlled rate. Hypertension. Rheumatoid arthritis. Prediabetes HgbA1C 6.1%. Acute kidney injury. Elevated LFTs. Cigar/alcohol abuse. Morbid obesity. Assessment/Plan Continued all current supportive medical care. Cardizem. DVT prophylactics. IV antibiotics as ordered. Morphine and Toradol for pain management. Additional plan as per the hospital course. Dietary Evaluation Review Comments: Nutrition Recommendation: 1) Consider CCHO 75gm + 2gm Na diet 2) Consider Glucerna 240ml TID if PO intake <50% 3) Refer Main[employer] Systems Programmer for diabetes education Expected Outcomes/Goals: To meet >75% estimated needs GI symptoms to improve Fu 3-5 days Plan discussed with: Patient MESHA HERNANDES MD May 08, 2025 11:54
[2025-05-09] VITALS (8 sets, daily range): BP systolic 108–135; BP diastolic 72–86; PULSE 59–87; RESP 15–19; TEMP 97–98; O2SAT 92–99
[2025-05-09 07:29] LABS: Hematocrit 34.5 % (41.0-53.0); Hemoglobin 12.3 g/dL (13.5-17.5); Mean Corpuscular Hemoglobin 30.0 pg (28.0-32.0); Mean Corpuscular Volume 83.7 fL (80.0-100.0)
[2025-05-09 07:34] LABS: Anion Gap 9 (5-15); Carbon Dioxide 24 mmol/L (20-31); Chloride 99 mmol/L (98-107); Potassium 3.7 mmol/L (3.5-5.1)
[2025-05-09 07:35] LABS: Calcium 8.7 mg/dL (8.7-10.4)
[2025-05-09 07:40] LABS: BUN/Creatinine Ratio 21.1 (10.0-20.0); Blood Urea Nitrogen 23 mg/dL (9-23); Glucose 121 mg/dL (74-106); Sodium 132 mmol/L (136-145)
[2025-05-09 08:03] LABS: Total Cells Counted 100.0 (100)
--- NOTE | 2025-05-09 08:40 | MEDREC ---
[facility] ASP Intervention Section I [facility] ASP Intervention: Deescalate AB based on CS (PLEASE CONSIDER DE-ESCALATION SINCE BLOOD CULTURE POSITIVE FOR MSSA (D/C VANCOMYCIN)) BE JUDD PHARMACIST May 09, 2025 08:40
--- NOTE | 2025-05-09 12:46 | DVHPNRES ---
Progress Note Date Seen: May 09, 2025 Resident Creating Document: NOEL DOWLING Medical Necessity Reason Pt with a Central, PICC or Fol: No Subjective Review of Systems Patient was seen today at bedside. Labs and chart reviewed. Patient on IV antibiotic cefepime and vancomycin for bacteremia with a Staphylococcus aureus, sensitive to vancomycin. Repeat blood culture on 05/08/2025 negative for any growth so far. Ordered MRI of the cervical spine, thoracic spine, lumbar spine to find the source of bacteremia, especially to rule out spinal or paravertebral abscess. ABRAHAM negative for infective endocarditis.As per county program technician patient is a pellet on the left hand from [employer] . So MRI can not be done. Objective vital signs Vital Sign Date Time Temp Pulse Resp B/P (MAP) Pulse Ox O2 Delivery O2 Flow Rate FiO2 05/09/25 08:55 97.4 69 19 132/82 (99) 96 97.4 05/09/25 08:00 Room Air* 0 21 Total Intake and Output 05/08/25 05/08/25 05/09/25 15:00 23:00 07:00 Intake Total 250 ml 900 ml 454 ml Output Total 450 ml 1100 ml Balance 250 ml 450 ml -646 ml medications Current Medications Medications Dose Ordered Sig/Beronica Route Start Time Stop Time Status Last Admin Dose Admin Baclofen 10 mg BID PO 05/04/25 10:00 05/09/25 09:36 10 MG Acetaminophen 650 mg Q6HP PRN PO 05/03/25 20:00 05/05/25 16:20 650 MG Ondansetron HCl 4 mg Q4HP PRN IV 05/03/25 20:00 Morphine Sulfate 2 mg Q4HPRN PRN IV 05/03/25 20:00 05/09/25 00:39 2 MG Cefepime HCl 50 ml @ 12.5 mls/hr Q12HR IV 05/04/25 10:00 UNV Cefepime HCl 50 ml @ 12.5 mls/hr Q8H IV 05/04/25 08:30 05/09/25 09:35 12.5 MLS/HR Sodium Chloride 1,000 ml @ 75 mls/hr [id number] IV 05/04/25 09:00 05/07/25 17:25 75 MLS/HR Enoxaparin Sodium 150 mg Q12HR SC 05/04/25 10:00 UNV Enoxaparin Sodium 150 mg BID SC 05/04/25 10:00 05/09/25 09:36 150 MG Vancomycin HCl 0 ml @ 0 mls/hr UD IV 05/04/25 10:15 Diltiazem HCl 30 mg Q6HR PO 05/05/25 00:00 05/09/25 05:43 30 MG Ketorolac Tromethamine 15 mg Q6HPRN PRN IV 05/07/25 10:30 05/12/25 10:29 05/09/25 05:49 15 MG Examination General Appearance: Cooperative. Well developed. Well nourished. NAD. Head Exam: Normal inspection Neck Exam: Normal inspection. Non-tender. Normal alignment Pulmonary/Respiratory: Chest non-tender. decreased air entry bilaterally, no crackles, no wheezing. Cardiovascular/Chest: irregularly rate and rhythm. No murmurs. No JVD. Peripheral Pulses: 2+ Radial (R). 2+ Radial (L). 2+ Pedal (R). 2+ Pedal (L) Abdominal Exam: Normal bowel sounds. Soft. obese abdomen, no visible veins, Nontender. No hepatospenomegaly. No masses,with red,erythematous linear area approximately 10 cm long Ankle Exam: Negative ankle edema Lower extremities: Negative lower extremity edema Neuro/Mental Status: A&O x4. Coherent. Thoughts/Psych: Normal thought pattern. Appropriate mood and affect. Good judgement and insight Skin Exam: Normal inspection. Normal color. Warm. Dry Patient has tenderness on palpation in lower lumbar and sacral area (L5-S1) laboratory and microbiology Laboratory Tests 05/09/25 05:51 Test 05/09/25 05:51 Range/Units Serum Glucose 121 H 74-106 mg/dL Microbiology Date/Time Source Procedure Growth Status 05/08/25 12:10 Blood Blood Culture - Preliminary NO GROWTH AFTER 24 HOURS OF INCUBATION. Resulted 05/04/25 13:30 Voided Urine Urine Culture - Final Complete 05/04/25 10:08 Nose MRSA Screen - Final Complete Problem List/Assessment/Plan Problem List/Assessment/Plan Problem List/Assessment/Plan-Ordered MRI of the cervical spine, thoracic spine, lumbar spine to find the source of bacteremia, especially to rule out spinal or paravertebral abscess. ABRAHAM negative for infective endocarditis. -As per county program technician patient is a pellet on the left hand from [employer] . So MRI can not be done. Sepsis, unspecified source for now Ruled out Infective endocarditis-ABRAHAM negative for infective endocarditis Gram-positive bacteremia AFib with RVR with a secondary hypercoagulable state -previous 3 set of blood cultures showed Gram-positive bacteremia -repeat blood culture on 05/08/2025-negative for any growth so far - on vancomycin and cefepime -repeated blood cultures on ordered urine culture, james cultures -Echo-MILD LVH AND MILD LV DIASTOLIC DYSFUNCTION,LV EF IS 55% -continuously monitor labs and electrolytes -ABRAHAM -There appears to be mild left atrial enlargement with concentric LVH.EF of 60% with normal RV function. - Doppler reveals moderate tricuspid regurgitation. There was mild mitral insufficiency. Sxfzbyuu-rh-usmwni aortic insufficiency. - No pericardial effusion masses or vegetations discernible. Left atrial appendage is clean. No intra-atrial shunting and or other anomaly noted. A bubble study was not performed AFib with RVR with a secondary hypercoagulable state -consulted Cardiology due to AFib, advised to start on diltiazem and therapeutic Lovenox -continuously monitor telemetry and EKG changes -Echo-MILD LVH AND MILD LV DIASTOLIC DYSFUNCTION,LV EF IS 55% -continuously monitor labs and electrolytes -ABRAHAM -There appears to be mild left atrial enlargement with concentric LVH.EF of 60% with normal RV function. - Doppler reveals moderate tricuspid regurgitation. There was mild mitral insufficiency. Vtczqhmx-yv-ejgiki aortic insufficiency. - No pericardial effusion masses or vegetations discernible. Left atrial appendage is clean. No intra-atrial shunting and or other anomaly noted. A bubble study was not performed Severe paraspinal muscle spasm -baclofen and flexeril -hot pack -ibuprofen -Lumbar spine CT-No acute fracture or dislocation. -Degenerative changes at L4-L5 and L5-S Intractable nausea and vomiting,possibly due to ? gastroenteritis -supportive management -Zofran PRN JARED,likely due to VMN -status post IV fluid -avoid nephrotoxic agents -follow labs Diabetes mellitus type 2,uncontrolled -blood glucose 244 mg/dl -HbA1c 6.1 -mild sliding scale Hepatic steatosis and hepatomegaly likely MASH Hyperbilirubinemia -total bilirubin 2.3 -monitor labs for now Left renal cyst - CT showed 3.1 cm -outpatient follow up PUD prophylaxis: protonix DVT prophylaxis: Patient on Lovenox Goals of care: Full code, discussed for >23 minutes Plan discussed with patient Plan discussed with Dr Reyes Plan discussed with: Patient Plan discussed with: Patient, Spouse, Other (RN) My Orders My Orders Orders - NOEL DOWLING Procedure Category Date Status Time Lumbar Spine Wo W MRI 05/09/25 Logged Contrst 11:52 Thoracic Spine Wo W MRI 05/09/25 Logged 11:52 Cervical Wo Contrast MRI 05/09/25 Logged 12:02 Dietary Evaluation Review Comments: Nutrition Recommendation: 1) Consider CCHO 75gm + 2gm Na diet 2) Consider Glucerna 240ml TID if PO intake <50% 3) Refer Past[employer] Ministries Professor for diabetes education Expected Outcomes/Goals: To meet >75% estimated needs GI symptoms to improve Fu 3-5 days Date of Service: May 09, 2025 Billing Provider: DUSTIN REYES MD Common Visit Codes: [id number] INP/OBS CARE(HIGH) NOEL DOWLING RESIDENT May 09, 2025 12:46 DUSTIN REYES MD May 13, 2025 21:24
[2025-05-09] MEDS ORDERED: LACTULOSE 20Gm/30ML SOLN PO ONE (15:30)
[2025-05-09] MEDS: LACTULOSE 20Gm/30ML SOLN PO PRN (16:07)
[2025-05-09] MEDS: VANCOMYCIN 1.5GM/250ML 250 ML IV SCH (20:23)
--- NOTE | 2025-05-09 23:28 | DVHPN2 ---
Progress Note - Dictate Date Seen: May 09, 2025 Medical Necessity Reason Pt with a Central, PICC or Fol: No Subjective Patient was seen and evaluated in follow up. Patient is on 2 LPM NC. Patient is complaining of non-radiating back pain. Patient is on IV antibiotic cefepime and vancomycin for bacteremia with a Staphylococcus aureus, sensitive to vancomycin. ABRAHAM negative for infective endocarditis. Telemetry reviewed. vital signs Vital Sign Date Time Temp Pulse Resp B/P (MAP) Pulse Ox O2 Delivery O2 Flow Rate FiO2 05/09/25 12:52 97.4 72 18 108/72 (84) 98 97.4 05/09/25 08:00 Room Air* 0 21 Total Intake and Output 05/08/25 05/08/25 05/09/25 15:00 23:00 07:00 Intake Total 250 ml 900 ml 454 ml Output Total 450 ml 1100 ml Balance 250 ml 450 ml -646 ml medications Current Medications Medications Dose Ordered Sig/Beronica Route Start Time Stop Time Status Last Admin Dose Admin Baclofen 10 mg BID PO 05/04/25 10:00 05/09/25 09:36 10 MG Acetaminophen 650 mg Q6HP PRN PO 05/03/25 20:00 05/05/25 16:20 650 MG Ondansetron HCl 4 mg Q4HP PRN IV 05/03/25 20:00 Morphine Sulfate 2 mg Q4HPRN PRN IV 05/03/25 20:00 05/09/25 00:39 2 MG Cefepime HCl 50 ml @ 12.5 mls/hr Q12HR IV 05/04/25 10:00 UNV Cefepime HCl 50 ml @ 12.5 mls/hr Q8H IV 05/04/25 08:30 05/09/25 09:35 12.5 MLS/HR Sodium Chloride 1,000 ml @ 75 mls/hr [id number] IV 05/04/25 09:00 05/07/25 17:25 75 MLS/HR Enoxaparin Sodium 150 mg Q12HR SC 05/04/25 10:00 UNV Enoxaparin Sodium 150 mg BID SC 05/04/25 10:00 05/09/25 09:36 150 MG Vancomycin HCl 0 ml @ 0 mls/hr UD IV 05/04/25 10:15 Diltiazem HCl 30 mg Q6HR PO 05/05/25 00:00 05/09/25 12:41 30 MG Ketorolac Tromethamine 15 mg Q6HPRN PRN IV 05/07/25 10:30 05/12/25 10:29 05/09/25 05:49 15 MG objective GENERAL: Alert and oriented x 3. No acute distress. EYES: PERRL, EOMI. Anicteric. HENT: Moist mucous membranes. LUNGS: Clear to auscultation bilaterally. CARDIOVASCULAR: Regular rate and rhythm. ABDOMEN: Soft, nontender and nondistended. EXTREMITIES: No edema. NEUROLOGIC: No focal neurological deficits. SKIN: Warm, dry. laboratory and microbiology Laboratory Tests 05/09/25 05:51 Test 05/09/25 05:51 Range/Units Serum Glucose 121 H 74-106 mg/dL Problem List Bacteremia, rule out infective endocarditis. Atrial fibrillation with rapid ventricular rate, unspecified, now with controlled rate. Hypertension. Rheumatoid arthritis. Prediabetes HgbA1C 6.1%. Acute kidney injury. Elevated LFTs. Cigar/alcohol abuse. Morbid obesity. Assessment/Plan Continued all current supportive medical care. Cardizem. DVT prophylactics. IV antibiotics as ordered. Morphine and Toradol for pain management. Additional plan as per the hospital course. Dietary Evaluation Review Comments: Nutrition Recommendation: 1) Consider CCHO 75gm + 2gm Na diet 2) Consider Glucerna 240ml TID if PO intake <50% 3) Refer Front End Web Designer for diabetes education Expected Outcomes/Goals: To meet >75% estimated needs GI symptoms to improve Fu 3-5 days Plan discussed with: Patient MESHA HERNANDES MD May 09, 2025 13:42
[2025-05-10] VITALS (8 sets, daily range): BP systolic 103–141; BP diastolic 67–103; PULSE 78–97; RESP 18–21; TEMP 97.4–98.7; O2SAT 90–98
[2025-05-10 06:52] LABS: Hematocrit 34.7 % (41.0-53.0); Hemoglobin 12.5 g/dL (13.5-17.5); Mean Corpuscular Hemoglobin 30.3 pg (28.0-32.0); Mean Corpuscular Volume 83.8 fL (80.0-100.0); Nucleated Red Blood Cells % 0.1 %
[2025-05-10 06:53] LABS: Anion Gap 9 (5-15); Carbon Dioxide 22 mmol/L (20-31); Chloride 101 mmol/L (98-107); Potassium 4.1 mmol/L (3.5-5.1)
[2025-05-10 06:55] LABS: Calcium 8.7 mg/dL (8.7-10.4)
[2025-05-10 07:00] LABS: BUN/Creatinine Ratio 18.1 (10.0-20.0); Blood Urea Nitrogen 17 mg/dL (9-23); Glucose 135 mg/dL (74-106); Sodium 132 mmol/L (136-145)
[2025-05-10] MEDS: VANCOMYCIN 1.5GM/250ML 250 ML IV SCH (09:19)
[2025-05-10] MEDS ORDERED: MORPHINE SULFATE INJ 2 MG/ml SYRG IV PRN (13:45)
--- NOTE | 2025-05-10 14:30 | DVHPNRES ---
Progress Note Date Seen: May 10, 2025 Resident Creating Document: SOFIA HERNANDEZ RESIDENT Medical Necessity Reason Pt with a Central, PICC or Fol: No Objective vital signs Vital Sign Date Time Temp Pulse Resp B/P (MAP) Pulse Ox O2 Delivery O2 Flow Rate FiO2 05/10/25 12:17 77 114/78 05/10/25 09:00 97.4 21 98 97.4 05/10/25 08:00 Room Air* 0 21 Total Intake and Output 05/09/25 05/09/25 05/10/25 15:00 23:00 07:00 Intake Total 50 ml 850 ml 1200 ml Output Total 1000 ml 1000 ml Balance 50 ml -150 ml 200 ml medications Current Medications Medications Dose Ordered Sig/Beronica Route Start Time Stop Time Status Last Admin Dose Admin Baclofen 10 mg BID PO 05/04/25 10:00 05/10/25 09:21 10 MG Acetaminophen 650 mg Q6HP PRN PO 05/03/25 20:00 05/05/25 16:20 650 MG Ondansetron HCl 4 mg Q4HP PRN IV 05/03/25 20:00 Cefepime HCl 50 ml @ 12.5 mls/hr Q12HR IV 05/04/25 10:00 UNV Enoxaparin Sodium 150 mg Q12HR SC 05/04/25 10:00 UNV Enoxaparin Sodium 150 mg BID SC 05/04/25 10:00 05/10/25 09:19 150 MG Vancomycin HCl 0 ml @ 0 mls/hr UD IV 05/04/25 10:15 Diltiazem HCl 30 mg Q6HR PO 05/05/25 00:00 05/10/25 12:17 30 MG Ketorolac Tromethamine 15 mg Q6HPRN PRN IV 05/07/25 10:30 05/12/25 10:29 05/10/25 09:18 15 MG Lactulose 30 ml BIDPRN PRN PO 05/09/25 15:30 05/10/25 06:39 30 ML Vancomycin HCl 250 ml @ 166.667 mls/hr Q12H IV 05/10/25 08:00 05/10/25 09:19 166.667 MLS/HR Morphine Sulfate 2 mg Q6HPRN PRN IV 05/10/25 13:45 laboratory and microbiology Laboratory Tests 05/10/25 06:01 Test 05/10/25 06:01 Range/Units Serum Glucose 135 H 74-106 mg/dL Microbiology Date/Time Source Procedure Growth Status 05/08/25 12:10 Blood Blood Culture - Preliminary NO GROWTH AFTER 48 HOURS OF INCUBATION. Resulted 05/04/25 13:30 Voided Urine Urine Culture - Final Complete 05/04/25 10:08 Nose MRSA Screen - Final Complete Dietary Evaluation Review Comments: Nutrition Recommendation: 1) Consider CCHO 75gm + 2gm Na diet 2) Consider Glucerna 240ml TID if PO intake <50% 3) Refer [employer] for diabetes education Expected Outcomes/Goals: To meet >75% estimated needs GI symptoms to improve Fu 3-5 days SOFIA HERNANDEZ RESIDENT May 10, 2025 14:30
--- NOTE | 2025-05-10 14:57 | DVHDSRES ---
Discharge Summary Date of Admission Resident Creating Document: SOFIA HERNANDEZ RESIDENT May 03, 2025 at 19:52 Date of Discharge: May 10, 2025 Admitting Diagnosis Back pain Wounds: healing wounds on the lower abdomen below umbilicus Labs/Diagnostic Data: Laboratory Results Test 05/10/25 06:01 05/09/25 16:10 05/09/25 05:51 05/08/25 19:45 White Blood Count 7.8 10^3/uL (4.4-10.8) Red Blood Count 4.14 10^6/uL (4.5-5.90) Hemoglobin 12.5 g/dL (13.5-17.5) Hematocrit 34.7 % (41.0-53.0) Mean Corpuscular Volume 83.8 fL (80.0-100.0) Mean Corpuscular Hemoglobin 30.3 pg (28.0-32.0) Mean Corpuscular Hemoglobin Concent 36.2 g/dL (32.0-36.0) Red Cell Distribution Width 14.4 % (11.8-14.3) Platelet Count 204 10^3/uL (140-450) Mean Platelet Volume 7.6 fL (6.9-10.8) Neutrophils (%) (Auto) 74.3 % (37.0-80.0) Lymphocytes (%) (Auto) 14.2 % (10.0-50.0) Monocytes (%) (Auto) 8.0 % (0.0-12.0) Eosinophils (%) (Auto) 3.2 % (0.0-7.0) Basophils (%) (Auto) 0.3 % (0.0-2.0) Neutrophils # (Auto) 5.8 10 ^3/uL (1.6-8.6) Lymphocytes # (Auto) 1.1 10 ^3/uL (0.4-5.4) Monocytes # (Auto) 0.6 10 ^3/uL (0-1.3) Eosinophils # (Auto) 0.2 10 ^3/uL (0-0.8) Basophils # (Auto) 0 10 ^3/uL (0-0.2) Nucleated Red Blood Cells 0.1 % Sodium Level 132 mmol/L (136-145) Potassium Level 4.1 mmol/L (3.5-5.1) Chloride Level 101 mmol/L (98-107) Carbon Dioxide Level 22 mmol/L (20-31) Anion Gap 9 (5-15) Blood Urea Nitrogen 17 mg/dL (9-23) Creatinine 0.94 mg/dL (0.700-1.30) Glomerular Filtration Rate Calc 97 mL/min (>90) BUN/Creatinine Ratio 18.1 (10.0-20.0) Serum Glucose 135 mg/dL (74-106) Calcium Level 8.7 mg/dL (8.7-10.4) Random Vancomycin Level 21.0 ug/mL (5-10) Differential Total Cells Counted 100.0 (100) Neutrophils % (Manual) 64 (37.0-80.0) Band Neutrophils % (Manual) 2 Lymphocytes % (Manual) 16 (10.0-50.0) Monocytes % (Manual) 11 (0-12) Eosinophils % (Manual) 5 (0-7) Basophils % (Manual) 0 (0.0-2.0) Metamyelocytes % (manual) 1 Myelocytes % (Manual) 0 Promyelocytes % (Manual) 0 Blast Cells % (Manual) 0 Reactive Lymphocytes 1 Platelet Estimate Adequate Erythrocyte Sedimentation Rate 76 mm/hr (0-20) C-Reactive Protein High Sensitivity 10.52 mg/dL (<1.0) Vancomycin Level Trough 25.2 ug/mL (5-10) Test 05/07/25 02:15 05/05/25 05:42 05/04/25 10:08 05/04/25 06:26 Prothrombin Time 11.1 sec (9.3-11.8) Prothrombin Time INR 1.05 (0.9-1.15) Activated Partial Thromboplast Time 26.5 SEC (24.5-34.5) Magnesium Level 1.9 mg/dL (1.6-2.6) Total Bilirubin 0.9 mg/dL (0.2-1.0) Aspartate Amino Transferase (AST) 138 U/L (13-40) Alanine Aminotransferase (ALT) 54 U/L (7-40) Alkaline Phosphatase 42 U/L (46-116) Total Protein 6.3 g/dL (5.7-8.2) Albumin 3.5 g/dL (3.2-4.8) Urine Color Yellow (Yellow) Urine Clarity Turbid (Clear) Urine pH 5.5 (5.0-9.0) Urine Specific [place] 1.029 (1.001-1.035) Urine Protein 1+ (Negative) Urine Ketones Negative (Negative) Urine Blood 3+ /uL (Negative) Urine Nitrite Negative (Negative) Urine Bilirubin Negative (Negative) Urine Urobilinogen Normal mg/dL (Negative) Urine Leukocyte Esterase Negative /uL (Negative) Urine RBC 10 /hpf (0 - 3) Urine Microscopic WBC 4 /HPF (0-3) Urine Squamous Epithelial Cells Few /hpf (<5) Urine Bacteria None seen /hpf (None Seen) Urine Glucose Trace mg/dL (Normal) Lactic Acid Level 1.1 mmol/L (0.4-2.0) B-Type Natriuretic Peptide 29.55 pg/mL (0-100) Triglycerides Level 132 mg/dL (< 150) Cholesterol Level 111 mg/dL (< 200) LDL Cholesterol 46 mg/dL (< 100) HDL Cholesterol 39 mg/dL (40-59) Hepatitis B Surface Antigen Negative (Negative) Hepatitis C Antibody Negative (Negative) Test 05/03/25 14:45 05/03/25 14:31 05/03/25 09:23 05/03/25 08:56 Thyroid Stimulating Hormone (TSH) 1.87 uIU/mL (0.55-4.78) Influenza Type A Antigen Negative (Negative) Influenza Type B Antigen Negative (Negative) Urine Mucus Few (None Seen) Troponin I High Sensitivity 8 ng/L (</=54) Test 05/03/25 07:52 05/03/25 00:00 Hemoglobin A1c 6.1 % A1C (<5.7) Lipase 31 U/L (12-53) SARS-CoV-2 Antigen (Rapid) Negative (NEGATIVE) Other Laboratory Tests 05/10/25 06:01 Brief Hx & Hospital Course: This is a 54-year-old male with a known history of rheumatoid arthritis (on Remicade every 6 weeks), diabetes, and hypertension (both not on medication). He presented to the emergency department with severe, intractable back pain of 3 days duration, rated 9/10, aching in nature, radiating to the left leg, and associated with leg weakness. The pain was exacerbated by forward bending and rendered him non-ambulatory. He denied trauma but reported nausea and vomiting for 2 days, with 23 episodes of nonbloody emesis and poor oral intake. He had a recent cold 10 days prior without fever or respiratory symptoms. Past surgical history includes tonsillectomy and inguinal hernia repair. He lives with family, smokes cigars and drinks alcohol on weekends, and denies drug use. He is allergic to almonds. Patient was seen today at bedside. Labs and chart reviewed. Patient on IV antibiotic cefepime and vancomycin for bacteremia with a Staphylococcus aureus, sensitive to vancomycin. Repeat blood culture on 05/08/2025 negative for any growth so far. Ordered MRI of the cervical spine, thoracic spine, lumbar spine to find the source of bacteremia, especially to rule out spinal or paravertebral abscess. MIHIR negative for infective endocarditis. On evaluation today, he states he is well, pain is manageable. Blood culture was negative. His vitals have remained stable for discharge home, follow up visit in discharge clinic. All medications and recommendations were thoroughly explained and the patient states he understands and agrees. Detailed discussion held with patient at bedside were all questions were answered and concerns were addressed. Discharge Plan home medications- IV Levofloxacin for 7 days , ibuprofen for pain relief as needed Follow up with the PCP in one week Examination General Appearance: Cooperative. Well developed. Well nourished. NAD. Head Exam: Normal inspection Neck Exam: Normal inspection. Non-tender. Normal alignment Pulmonary/Respiratory: Chest non-tender. decreased air entry bilaterally, no crackles, no wheezing. Cardiovascular/Chest: irregularly rate and rhythm. No murmurs. No JVD. Peripheral Pulses: 2+ Radial (R). 2+ Radial (L). 2+ Pedal (R). 2+ Pedal (L) Abdominal Exam: Normal bowel sounds. Soft. obese abdomen, no visible veins, Nontender. No hepatospenomegaly. No masses,with red,erythematous linear area approximately 10 cm long Ankle Exam: Negative ankle edema Lower extremities: Negative lower extremity edema Neuro/Mental Status: A&O x4. Coherent. Thoughts/Psych: Normal thought pattern. Appropriate mood and affect. Good judgement and insight Skin Exam: Normal inspection. Normal color. Warm. Dry Patient has tenderness on palpation in lower lumbar and sacral area (L5-S1) and left paraspinal area. Operations or Procedures PATIENT: JANAY OLSON ACCT: [id number] UNIT: [id number] : 1970 LOC: OVERFLOW ROOM / BED: 1028-ERT / A AGE / SEX: 54 / M ADM STATUS: ADM IN SERVICE 0400 ORDERING PHYSICIAN: NOLA LOOMIS PROCEDURE(s): CXR2 - CHEST TWO VIEWS ROUTINE REASON: sepsis ORDER NUMBER(s): [id number], ACCESSION NUMBER(s): [id number] CHEST RADIOGRAPH Indication: sepsis Technique: 1 view Comparison: None FINDINGS: Lines and Tubes: None Lungs/Pleura: No focal consolidation, pleural effusion or pneumothorax. Cardiomediastinum: Normal heart size. Aortic atherosclerosis. Other: No acute osseous abnormality. IMPRESSION: 1. No acute cardiopulmonary abnormality. ----- PATIENT: JANAY OLSON ACCT: [id number] UNIT: [id number] : 1970 LOC: ER ROOM / BED: / AGE / SEX: 54 / M ADM STATUS: REG ER SERVICE 1023 ORDERING PHYSICIAN: SHABNAM REMY NP PROCEDURE(s): ABPLIV - CT AB PEL WITH IV CON ONLY REASON: R/o pathology ORDER NUMBER(s): [id number], ACCESSION NUMBER(s): [id number] Exam: CT CT AB PEL WITH IV CON ONLY History: R/o pathology COMPARISON: None Technique: Multidetector spiral CT of the abdomen and pelvis was performed from lung bases to pubic symphysis. Intravenous contrast was administered during this examination. Portal venous imaging was obtained. Axial, coronal and sagittal multiplanar reformats were performed by the technologist on a separate workstation. Radiation Dose : 1. Abdomen/Pelvis: CTDIvol 27.84mGy, DLP 2018.08 mGy*cm. Findings: Lung Bases: Dependent subsegmental atelectasis. Liver: Hepatic steatosis. Hepatomegaly. Gallbladder and Biliary Tree: Unremarkable Spleen: Unremarkable Pancreas: The pancreas is normal in appearance without focal lesions or abnormal enhancement. Adrenal Glands: Unremarkable Kidneys: No hydronephrosis. Left midpole cyst measures 3.1 cm. Bladder: Unremarkable Bowel: The stomach is grossly normal in appearance. Small bowel and colon are normal in caliber and distribution. The appendix is not visualized; however, no secondary findings of acute appendicitis identified. Ascites: Absent Lymphadenopathy: No mesenteric, retroperitoneal or periportal lymphadenopathy. Abdominal Wall and Mesentery: Unremarkable. Vasculature: The visualized abdominal aorta is normal in size and caliber. Abdominal and pelvic vessels demonstrate normal enhancement. Pelvic Organs: Unremarkable Musculoskeletal: No aggressive focal bony lesions, acute fractures or dislocation. Degenerative changes of the spine. IMPRESSION: No acute abdominal or pelvic finding. Hepatic steatosis and hepatomegaly. Radiation optimization: All CT scans at this facility use at least one of these dose optimization techniques: automated exposure control mA and/or kV adjustment per patient size (includes targeted exams where dose is matched to clinical indication) or iterative reconstruction. ----- PATIENT: JANAY OLSON ACCT: [id number] UNIT: [id number] : 1970 LOC: ER ROOM / BED: / AGE / SEX: 54 / M ADM STATUS: REG ER SERVICE 0743 ORDERING PHYSICIAN: SHABNAM REMY NP PROCEDURE(s): LS2CT - LS SPINE WO CONTRAST REASON: Sudden Back pain ORDER NUMBER(s): [id number], ACCESSION NUMBER(s): [id number] CLINICAL INDICATION: Sudden Back pain TECHNIQUE: CT of the lumbar spine was performed without intravenous contrast. Sagittal and coronal reformatted images are provided. All CT scans at this medical facility are performed using dose modulation techniques as appropriate to a performed exam including the following: Automated exposure control was utilized; adjustment of the MA and/or KV according to patient size; and use of iterative reconstruction technique. COMPARISON: None CT Dose: CTDI volume is 38.94 mGy. Dose-length product is 1508.22 mGy*cm FINDINGS: The alignment and curvature of the lumbar spine are preserved. The vertebral bodies are normal in height. There is intervertebral disc space narrowing at L4- L5 and L5-S1. There is stenosis at L4-L5 and L5-S1. Bilateral neural foraminal stenosis at L4-L5 and L5-S1. The prevertebral soft tissues are unremarkable. Paraspinal muscles are also within normal limits. IMPRESSION: 1. No acute fracture or dislocation. 2. Degenerative changes at L4-L5 and L5-S Operative Report - 2 Report Details Date: 05/07/25 Preop Diagnosis: Aortic insufficiency Postop Diagnosis: Status post mihir/aortic insufficiency Surgeon: Francesco Morelos MD Anesthesiologist: Conscious sedation Anesthesia: Mac, Local Consent: The patient was informed of the risks and benefits of the procedure. These include but are not limited to complications of anesthesia, postoperative infection, incomplete relief of symptoms, recurrence of symptoms, damage to blood vessels, nerves and tendons, deep venous thrombosis, pulmonary embolism and possible need for repeat surgery in the future. Complications: No complications Findings: Aortic insufficiency normal LV function Indications for Surgery: Valvulopathy Name of Procedure Performed Transesophageal echocardiogram Procedure Details Procedure Details: Prior full informed consent obtained the patient was prepped and draped in usual fashion placed in left lateral and semi-Cano position. Patient given oral lidocaine to gargle. Conscious sedation given. A transesophageal probe was passed without difficulty and standard views obtained Conclusions 1. Technically good study. The patient is in a sinus tachycardia. 2. There appears to be mild left atrial enlargement with concentric LVH. 3. Valves appear to be structurally normal. Trileaflet aortic valve. The mitral valve is normal without calcification. The tricuspid and pulmonic appear to be structurally normal. No underlying anomalies identified. 4. Left ventricular systolic performance is preserved. EF of 60% with normal RV function. 5. Doppler reveals moderate tricuspid regurgitation. There was mild mitral insufficiency. [id number] aortic insufficiency. 6. No pericardial effusion masses or vegetations discernible. Left atrial appendage is clean. No intra-atrial shunting and or other anomaly noted. A bubble study was not performed. Patient tolerated the procedure well there were no complications Condition Good Disposition Still a Patient Date of Service: May 07, 2025 Billing Provider: FRANCESCO MORELOS Sr., MD Cardiology Common Codes: 35037-JXCRBVG INP/OBS CARE (High) Cardiology Procedure Codes: 16994-DDY W/IMG DOC INCL PROB ACQ FRANCESCO MORELOS Sr., MD May 07, 2025 15:04 DICTATED BY:FRANCESCO MORELOS Sr., MD DICTATED DATE/TIME:05/07/25 1504 ELECTRONICALLY SIGNED BY:FRANCESCO MORELOS Sr., MD 05/07/25 1505 - ---- PATIENT: JANAY OLSON ACCT: [id number] : 1970 LOC: [facility]GE / SEX: 54 / M ADM STATUS: ADM IN SERVICE UNIT: [id number] ORDERING PHYSICIAN: JOZEF PATIÑO RESIDENT PROCEDURE(s): EKG - ELECTROCARDIGRAM ORDER NUMBER(s): [id number], ACCESSION NUMBER(s): [id number] Test Date: 2025-05-04 Test Time: 12:24:07 Pat Name: JANAY OLSON Department: Respiratoy Room: [address] [place] [address] Gender: M Roof Bolter: NAV : 1970 Requested By: JOZEF PATIÑO Order Number: [id number] Reading MD: Measurements Intervals [place] Rate: 145 P: 0 CT: 0 QRS: 20 QRSD: 86 T: 87 QT: 273 QTc: 424 Interpretive Statements Atrial fibrillation Abnormal R-wave progression, early transition Please click the below link to view image of tracing. PATIENT: JANAY OLSON ACCT: [id number] : 1970 LOC: TELE-CENTR ROOM / BED: [address] [place] [address] AGE / SEX: 54 / M ADM STATUS: ADM IN SERVICE UNIT: [id number] ORDERING PHYSICIAN: JOZEF PATIÑO RESIDENT PROCEDURE(s): EKG - ELECTROCARDIGRAM ORDER NUMBER(s): [id number], ACCESSION NUMBER(s): [id number] [facility] Test Date: 2025-05-06 Test Time: 00:02:02 Pat Name: JANAY OLSON Department: Respiratoy Room: [address] [place] [address] Gender: M Roof Bolter: ROBINSON : 1970 Requested By: JOZEF PATIÑO Order Number: [id number] Jimy MD: Francesco Morelos Measurements Intervals [place] Rate: 105 P: 0 CT: 0 QRS: 17 QRSD: 94 T: 57 QT: 340 QTc: 450 Interpretive Statements Atrial fibrillation Abnormal inferior Q waves Baseline wander in lead(s) V2 Electronically Signed On 05-06-2025 15:09:44 PDT by Francesco Morelos Please click the below link to view image of tracing. DICTATED BY:FRANCESCO MORELOS Sr., MD DICTATED DATE/TIME:05/06/25 0002 ELECTRONICALLY SIGNED BY:FRANCESCO MORELOS Sr., MD 05/06/25 1509 PATIENT: JANAY OLSON ACCT: [id number] : 1970 LOC: TELE-CENTR ROOM / BED: 0215T / B AGE / SEX: 54 / M ADM STATUS: ADM IN SERVICE UNIT: [id number] ORDERING PHYSICIAN: IVON ANGEL PROCEDURE(s): EKG - ELECTROCARDIGRAM ORDER NUMBER(s): [id number], ACCESSION NUMBER(s): [id number] [facility] Test Date: 2025-05-05 Test Time: 11:16:35 Pat Name: JANAY OLSON Department: Respiratoy Room: [address] [place] [address] Gender: M Roof Bolter: BROWN : 1970 Requested By: IVON ANGEL Order Number: [id number] Reading MD: Francesco Morelos Measurements Intervals [place] Rate: 93 P: 0 CT: 0 QRS: -7 QRSD: 89 T: 50 QT: 348 QTc: 433 Interpretive Statements Atrial fibrillation Inferior infarct, old Electronically Signed On 05-05-2025 16:59:05 PDT by Francesco Morelos Please click the below link to view image of tracing. DICTATED BY:FRANCESCO MORELOS Sr., MD DICTATED DATE/TIME:05/05/25 1116 -------- PATIENT: JANAY OLSON ACCT: [id number] UNIT: [id number] : 1970 LOC: TELE-CENTR ROOM / BED: 0215T / B AGE / SEX: 54 / M ADM STATUS: ADM IN SERVICE 51 ORDERING PHYSICIAN: NOLA LOOMIS RESIDENT PROCEDURE(s): ECIDC - ECHO 2D MODE CARDIAC DOP REASON: rule out endocarditis ORDER NUMBER(s): [id number], ACCESSION NUMBER(s): [id number] APPROVED REPORT EXAM: Two-dimensional and M-mode echocardiogram with Doppler and color Doppler. Blood Pressure: 120/80 mmHg INDICATION R/O Endocarditis RISK FACTORS Obesity: Height: 6', Weight: 330 DIMENSIONS LVDd 4.9 (3.8-5.7cm) LA (2D) 4.8 (1.9-4.0cm) Aortic Root 4.1 (2.0- 3.7cm) LVDs 3.5 (2.5-4.0cm) LA (MM) (1.9-4.0cm) Aortic Cusp Exc (1.5- 2.0cm) EF (%) 55.0 (55-70%) Rt. Atrium (1.9-4.0cm) Asc. Aorta 4.5 cm IVSd 1.2 (0.7-1.1cm) RV (D) (1.8-2.4cm) PWd 1.1 (0.7-1.1cm) Mitral Valve Mitral Mitral Stenosis E/A ratio 0.0 2D MVA cm2 Aortic Valve Aortic Valve Aortic Stenosis V2 1.25m/s AO Peak GR. 6mmHg LVOT Diameter 2.3 (1.8-2.4cm) Doppler MURALI cm2 Other Information Quality : Technically Limited Rhythm : Technically limited study due to body habitus. Conclusion MODERATELY DILATED RV AND RA NORMAL VALVES MILD LVH AND MILD LV DIASTOLIC DYSFUNCTION LV EF IS 55% NORMAL VALVES NO EFFUSION SIGNED BY: MESHA HERNANDES MD SIGNED DATE/TIME: 05/05/25 0941 PATIENT: JANAY OLSON ACCT: [id number] : 1970 LOC: TELE-CENTR ROOM / BED: 0215T / B AGE / SEX: 54 / M ADM STATUS: ADM IN SERVICE UNIT: [id number] ORDERING PHYSICIAN: JOZEF PATIÑO RESIDENT PROCEDURE(s): EKG - ELECTROCARDIGRAM ORDER NUMBER(s): [id number], ACCESSION NUMBER(s): [id number] [facility] Test Date: 2025-05-04 Test Time: 08:53:24 Pat Name: JANAY OLSON Department: Respiratoy Room: [facility] B Gender: M Roof Bolter: TRENT : 1970 Requested By: JOZEF PATIÑO Order Number: [id number] Reading MD: Francesco Morelos Measurements Intervals [place] Rate: 163 P: 0 CT: 0 QRS: 28 QRSD: 86 T: 61 QT: 279 QTc: 460 Interpretive Statements Atrial fibrillation Electronically Signed On 05-05-2025 9:01:25 PDT by Francesco Morelos Please click the below link to view image of tracing. DICTATED BY:FRANCESCO MORELOS Sr., MD DICTATED DATE/TIME:05/04/25 0853 ELECTRONICALLY SIGNED BY:FRANCESCO MORELOS Sr., MD 05/05/25 0901 Condition at Discharge: Good Final Diagnosis/Problems List Sepsis, unspecified source for now Ruled out Infective endocarditis-MIHIR negative for infective endocarditis Gram-positive bacteremia AFib with RVR with a secondary hypercoagulable state Severe paraspinal muscle spasm Intractable nausea and vomiting,possibly due to ? 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 Medications: Continue home medications as per EMR No Active Prescriptions or Reported Meds Discharge Statement: "Patient was advised to return to the ER or call 911 if any headaches, dizziness, shortness of breath, chest pain, abdominal pain, bleeding, fevers, or worsening of medical condition. Patient was counseled about treatment plan, medications, possible side effects, patientverbalized understanding. All questions were answered to the best of my ability. This discharge took greater then 30 minutes in planning, reviewing documentation, counseling the patient, and discussing with other team members." ASSESSMENT ASSESSMENT Assessment Sepsis, unspecified source for now Ruled out Infective endocarditis-MIHIR negative for infective endocarditis Gram-positive bacteremia AFib with RVR with a secondary hypercoagulable state Severe paraspinal muscle spasm Intractable nausea and vomiting,possibly due to ? gastroenteritis JARED,likely due to VMN Diabetes mellitus type 2,uncontrolled Hepatic steatosis and hepatomegaly likely MASH Hyperbilirubinemia Left renal cyst Date of Service: May 10, 2025 Billing Provider: DUSTIN SMALLWOOD MD Common Visit Codes: 43514-[id number] INP/OBS CARE(HIGH) SOFIA HERNANDEZ RESIDENT May 10, 2025 14:57 HARDEEP WILSON RESIDENT May 10, 2025 20:34 DUSTIN SMALLWOOD MD May 13, 2025 21:24
[2025-05-10] MEDS: IBUPROFEN 600 MG TAB PO SCH (21:33)
--- NOTE | 2025-05-10 22:25 | DVHPN2 ---
Progress Note - Dictate Date Seen: May 10, 2025 Medical Necessity Reason Pt with a Central, PICC or Fol: No Subjective Patient was seen and evaluated in follow up. No overnight events. Patient now on room air. Pending home antibiotics to be arranged. Patient denies any chest pain. Telemetry reviewed. vital signs Vital Sign Date Time Temp Pulse Resp B/P (MAP) Pulse Ox O2 Delivery O2 Flow Rate FiO2 05/10/25 21:00 98.3 97 19 103/72 (82) 96 98.3 05/10/25 08:00 Room Air* 0 21 Total Intake and Output 05/09/25 05/09/25 05/10/25 15:00 23:00 07:00 Intake Total 50 ml 850 ml 1200 ml Output Total 1000 ml 1000 ml Balance 50 ml -150 ml 200 ml medications Current Medications Medications Dose Ordered Sig/Beronica Route Start Time Stop Time Status Last Admin Dose Admin Baclofen 10 mg BID PO 05/04/25 10:00 05/10/25 21:30 10 MG Acetaminophen 650 mg Q6HP PRN PO 05/03/25 20:00 05/05/25 16:20 650 MG Ondansetron HCl 4 mg Q4HP PRN IV 05/03/25 20:00 Cefepime HCl 50 ml @ 12.5 mls/hr Q12HR IV 05/04/25 10:00 UNV Enoxaparin Sodium 150 mg Q12HR SC 05/04/25 10:00 UNV Enoxaparin Sodium 150 mg BID SC 05/04/25 10:00 05/10/25 21:31 150 MG Diltiazem HCl 30 mg Q6HR PO 05/05/25 00:00 05/10/25 18:42 30 MG Lactulose 30 ml BIDPRN PRN PO 05/09/25 15:30 05/10/25 06:39 30 ML Morphine Sulfate 2 mg Q6HPRN PRN IV 05/10/25 13:45 Ibuprofen 600 mg BID PO 05/10/25 22:00 05/10/25 21:33 600 MG Levofloxacin/ Dextrose 100 ml @ 100 mls/hr DAILY@2030 IV 05/10/25 20:30 05/10/25 20:22 100 MLS/HR objective GENERAL: Alert and oriented x 3. No acute distress. EYES: PERRL, EOMI. Anicteric. HENT: Moist mucous membranes. LUNGS: Clear to auscultation bilaterally. CARDIOVASCULAR: Regular rate and rhythm. ABDOMEN: Soft, nontender and nondistended. EXTREMITIES: No edema. NEUROLOGIC: No focal neurological deficits. SKIN: Warm, dry. laboratory and microbiology Laboratory Tests 05/10/25 06:01 Test 05/10/25 06:01 Range/Units Serum Glucose 135 H 74-106 mg/dL Problem List Bacteremia, rule out infective endocarditis. Atrial fibrillation with rapid ventricular rate, unspecified, now with controlled rate. Hypertension. Rheumatoid arthritis. Prediabetes HgbA1C 6.1%. Acute kidney injury. Elevated LFTs. Cigar/alcohol abuse. Morbid obesity. Assessment/Plan Continued all current supportive medical care. Cardizem. DVT prophylactics. IV antibiotics as ordered. Morphine and Toradol for pain management. Additional plan as per the hospital course. Dietary Evaluation Review Comments: Nutrition Recommendation: 1) Consider CCHO 75gm + 2gm Na diet 2) Consider Glucerna 240ml TID if PO intake <50% 3) Refer National Opelint Analyst for diabetes education Expected Outcomes/Goals: To meet >75% estimated needs GI symptoms to improve Fu 3-5 days Plan discussed with: Patient MESHA HERNANDES MD May 10, 2025 22:25
[2025-05-11] VITALS (9 sets, daily range): BP systolic 101–148; BP diastolic 71–101; PULSE 78–95; RESP 16–48; TEMP 97.4–98.2; O2SAT 94–97
--- NOTE | 2025-05-11 19:54 | DVHPNRES ---
Progress Note Date Seen: May 11, 2025 Resident Creating Document: SOFIA HERNANDEZ Medical Necessity Reason Pt with a Central, PICC or Fol: No Subjective Review of Systems This is a 54-year-old male with a known history of rheumatoid arthritis (on Remicade every 6 weeks), diabetes, and hypertension (both not on medication). He presented to the emergency department with severe, intractable back pain of 3 days duration, rated 9/10, aching in nature, radiating to the left leg, and associated with leg weakness. The pain was exacerbated by forward bending and rendered him non-ambulatory. He denied trauma but reported nausea and vomiting for 2 days, with 23 episodes of nonbloody emesis and poor oral intake. He had a recent cold 10 days prior without fever or respiratory symptoms. Past surgical history includes tonsillectomy and inguinal hernia repair. He lives with family, smokes cigars and drinks alcohol on weekends, and denies drug use. He is allergic to almonds. Patient was seen today at bedside. Labs and chart reviewed. Patient on IV antibiotic cefepime and vancomycin for bacteremia with a Staphylococcus aureus, sensitive to vancomycin. Repeat blood culture on 05/08/2025 negative for any growth so far. Ordered MRI of the cervical spine, thoracic spine, lumbar spine to find the source of bacteremia, especially to rule out spinal or paravertebral abscess. ABRAHAM negative for infective endocarditis. On evaluation today, he states he is well, pain is manageable. Blood culture was negative. His vitals have remained stable for discharge home, follow up visit in discharge clinic. All medications and recommendations were thoroughly explained and the patient states he understands and agrees. Detailed discussion held with patient at bedside were all questions were answered and concerns were addressed. Discharge Plan home medications- IV Levofloxacin for 7 days , ibuprofen for pain relief as needed Follow up with the PCP in one week Objective vital signs Vital Sign Date Time Temp Pulse Resp B/P (MAP) Pulse Ox O2 Delivery O2 Flow Rate FiO2 05/11/25 17:57 68 130/92 05/11/25 17:29 97.5 16 96 97.5 05/11/25 08:00 Room Air* 0 21 Total Intake and Output 05/10/25 05/10/25 05/11/25 15:00 23:00 07:00 Intake Total 1275 ml 900 ml 900 ml Output Total 2600 ml Balance 1275 ml 900 ml -1700 ml medications Current Medications Medications Dose Ordered Sig/Beronica Route Start Time Stop Time Status Last Admin Dose Admin Baclofen 10 mg BID PO 05/04/25 10:00 05/11/25 11:01 10 MG Acetaminophen 650 mg Q6HP PRN PO 05/03/25 20:00 05/05/25 16:20 650 MG Ondansetron HCl 4 mg Q4HP PRN IV 05/03/25 20:00 Cefepime HCl 50 ml @ 12.5 mls/hr Q12HR IV 05/04/25 10:00 UNV Enoxaparin Sodium 150 mg Q12HR SC 05/04/25 10:00 UNV Enoxaparin Sodium 150 mg BID SC 05/04/25 10:00 05/11/25 11:01 150 MG Diltiazem HCl 30 mg Q6HR PO 05/05/25 00:00 05/11/25 17:57 30 MG Lactulose 30 ml BIDPRN PRN PO 05/09/25 15:30 05/10/25 06:39 30 ML Morphine Sulfate 2 mg Q6HPRN PRN IV 05/10/25 13:45 Ibuprofen 600 mg BID PO 05/10/25 22:00 05/11/25 11:01 600 MG Levofloxacin/ Dextrose 100 ml @ 100 mls/hr DAILY@2029 IV 05/10/25 20:30 05/10/25 20:22 100 MLS/HR Examination General Appearance: Cooperative. Well developed. Well nourished. NAD. Head Exam: Normal inspection Neck Exam: Normal inspection. Non-tender. Normal alignment Pulmonary/Respiratory: Chest non-tender. decreased air entry bilaterally, no crackles, no wheezing. Cardiovascular/Chest: irregularly rate and rhythm. No murmurs. No JVD. Peripheral Pulses: 2+ Radial (R). 2+ Radial (L). 2+ Pedal (R). 2+ Pedal (L) Abdominal Exam: Normal bowel sounds. Soft. obese abdomen, no visible veins, Nontender. No hepatospenomegaly. No masses,with red,erythematous linear area approximately 10 cm long Ankle Exam: Negative ankle edema Lower extremities: Negative lower extremity edema Neuro/Mental Status: A&O x4. Coherent. Thoughts/Psych: Normal thought pattern. Appropriate mood and affect. Good judgement and insight Skin Exam: Normal inspection. Normal color. Warm. Dry Patient has tenderness on palpation in lower lumbar and sacral area (L5-S1) and left paraspinal area. laboratory and microbiology Laboratory Tests 05/11/25 05:51 05/10/25 06:01 Test 05/10/25 06:01 Range/Units Serum Glucose 135 H 74-106 mg/dL Microbiology Date/Time Source Procedure Growth Status 05/08/25 12:10 Blood Blood Culture - Preliminary NO GROWTH AFTER 72 HOURS OF INCUBATION. Resulted 05/04/25 13:30 Voided Urine Urine Culture - Final Complete 05/04/25 10:08 Nose MRSA Screen - Final Complete Labs and/or images reviewed: Labs reviewed by me, Image(s) reviewed by me Problem List/Assessment/Plan Problem List/Assessment/Plan Sepsis, unspecified source for now Ruled out Infective endocarditis Gram-positive bacteremia AFib with RVR with a secondary hypercoagulable state -3 set of blood cultures showed Gram-positive bacteremia -repeat blood culture -started on vancomycin and cefepime -repeated blood cultures on ordered urine culture, james cultures -consulted Cardiology due to AFib, advised to start on diltiazem and therapeutic Lovenox -continuously monitor telemetry and EKG changes -Echo-MILD LVH AND MILD LV DIASTOLIC DYSFUNCTION,LV EF IS 55% -continuously monitor labs and electrolytes -ABRAHAM -There appears to be mild left atrial enlargement with concentric LVH.EF of 60% with normal RV function. - Doppler reveals moderate tricuspid regurgitation. There was mild mitral insufficiency. [id number] aortic insufficiency. - No pericardial effusion masses or vegetations discernible. Left atrial appendage is clean. No intra-atrial shunting and or other anomaly noted. A bubble study was not performed Severe paraspinal muscle spasm -baclofen and flexeril -hot pack -ibuprofen -Lumbar spine CT-No acute fracture or dislocation. -Degenerative changes at L4-L5 and L5-S Intractable nausea and vomiting,possibly due to ? 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 Hyperbilirubinemia -total bilirubin 2.3 -monitor labs for now Left renal cyst - CT showed 3.1 cm -outpatient follow up PUD prophylaxis: protonix 40mg DVT prophylaxis: Levonox 40mg Goals of care: Full code, discussed for >16 minutes on 05/11/25 Plan discussed with patient Plan discussed with Dr. Reyes Plan discussed with: Patient Dietary Evaluation Review Comments: Nutrition Recommendation: 1) Consider CCHO 75gm + 2gm Na diet 2) Consider Glucerna 240ml TID if PO intake <50% 3) Refer Sugar Refinery Supervisor for diabetes education Expected Outcomes/Goals: To meet >75% estimated needs GI symptoms to improve Fu 3-5 days Date of Service: May 11, 2025 Billing Provider: DUSTIN REYES MD Common Visit Codes: [id number] INP/OBS CARE(MOD) SOFIA HERNANDEZ RESIDENT May 11, 2025 19:54 DUSTIN REYES MD May 13, 2025 21:25
--- NOTE | 2025-05-12 00:23 | DVHPN2 ---
Progress Note - Dictate Date Seen: May 11, 2025 Medical Necessity Reason Pt with a Central, PICC or Fol: No Subjective Patient was seen and evaluated in follow up. The patient is resting in bed. Patient reports feeling well today. Patient is awaiting for home IV and HH arrangements. Telemetry reviewed. vital signs Vital Sign Date Time Temp Pulse Resp B/P (MAP) Pulse Ox O2 Delivery O2 Flow Rate FiO2 05/11/25 21:00 97.4 82 19 116/71 (86) 94 97.4 05/11/25 19:49 Room Air* 0 21 Total Intake and Output 05/11/25 05/11/25 05/12/25 14:59 22:59 06:59 Intake Total 100 ml Output Total 1200 ml Balance -1100 ml medications Current Medications Medications Dose Ordered Sig/Beronica Route Start Time Stop Time Status Last Admin Dose Admin Baclofen 10 mg BID PO 05/04/25 10:00 05/11/25 21:10 10 MG Acetaminophen 650 mg Q6HP PRN PO 05/03/25 20:00 05/05/25 16:20 650 MG Ondansetron HCl 4 mg Q4HP PRN IV 05/03/25 20:00 Cefepime HCl 50 ml @ 12.5 mls/hr Q12HR IV 05/04/25 10:00 UNV Enoxaparin Sodium 150 mg Q12HR SC 05/04/25 10:00 UNV Enoxaparin Sodium 150 mg BID SC 05/04/25 10:00 05/11/25 21:10 150 MG Diltiazem HCl 30 mg Q6HR PO 05/05/25 00:00 05/11/25 17:57 30 MG Lactulose 30 ml BIDPRN PRN PO 05/09/25 15:30 05/10/25 06:39 30 ML Morphine Sulfate 2 mg Q6HPRN PRN IV 05/10/25 13:45 Ibuprofen 600 mg BID PO 05/10/25 22:00 05/11/25 21:10 600 MG Levofloxacin/ Dextrose 100 ml @ 100 mls/hr DAILY@2030 IV 05/10/25 20:30 05/11/25 19:54 100 MLS/HR objective GENERAL: Alert and oriented x 3. No acute distress. EYES: PERRL, EOMI. Anicteric. HENT: Moist mucous membranes. LUNGS: Clear to auscultation bilaterally. CARDIOVASCULAR: Regular rate and rhythm. ABDOMEN: Soft, nontender and nondistended. EXTREMITIES: No edema. NEUROLOGIC: No focal neurological deficits. SKIN: Warm, dry. laboratory and microbiology Laboratory Tests 05/11/25 05:51 05/10/25 06:01 Test 05/10/25 06:01 Range/Units Serum Glucose 135 H 74-106 mg/dL Problem List Bacteremia, rule out infective endocarditis. Atrial fibrillation with rapid ventricular rate, unspecified, now with controlled rate. Hypertension. Rheumatoid arthritis. Prediabetes HgbA1C 6.1%. Acute kidney injury. Elevated LFTs. Cigar/alcohol abuse. Morbid obesity. Assessment/Plan Continued all current supportive medical care. Cardizem. DVT prophylactics. IV antibiotics as ordered. Morphine for pain management. Additional plan as per the hospital course. Dietary Evaluation Review Comments: Nutrition Recommendation: 1) Consider CCHO 75gm + 2gm Na diet 2) Consider Glucerna 240ml TID if PO intake <50% 3) Refer Lumber Stacker Operator for diabetes education Expected Outcomes/Goals: To meet >75% estimated needs GI symptoms to improve Fu 3-5 days Plan discussed with: Patient MESHA HERNANDES MD May 12, 2025 00:23
[2025-05-12 01:00] VITALS: BP 111/79; PULSE 79; RESP 19; TEMP 97.7; O2SAT 96
[2025-05-12 05:00] VITALS: BP 117/83; PULSE 83; RESP 19; TEMP 97; O2SAT 94
[2025-05-12 08:00] VITALS: PULSE 86; RESP 18; O2SAT 97
[2025-05-12 08:54] VITALS: BP 122/81; PULSE 74; RESP 18; TEMP 97.7; O2SAT 98
[2025-05-12 09:58] LABS: Hematocrit 38.2 % (41.0-53.0); Hemoglobin 13.1 g/dL (13.5-17.5); Mean Corpuscular Hemoglobin 29.0 pg (28.0-32.0); Mean Corpuscular Volume 84.5 fL (80.0-100.0); Nucleated Red Blood Cells % 0.0 %
[2025-05-12 10:01] LABS: Chloride 103 mmol/L (98-107); Potassium 4.6 mmol/L (3.5-5.1)
[2025-05-12 10:02] LABS: Anion Gap 10 (5-15); Calcium 9.2 mg/dL (8.7-10.4); Carbon Dioxide 21 mmol/L (20-31)
[2025-05-12 10:07] LABS: BUN/Creatinine Ratio 17.0 (10.0-20.0); Blood Urea Nitrogen 19 mg/dL (9-23)
[2025-05-12 10:09] LABS: Glucose 176 mg/dL (74-106); Sodium 134 mmol/L (136-145)
[2025-05-12 11:58] VITALS: BP 117/83; PULSE 83; RESP 18; TEMP 36.5; O2SAT 97
[2025-05-12 13:00] VITALS: BP 140/97; PULSE 90; RESP 18; TEMP 97.8; O2SAT 97
--- NOTE | 2025-05-12 14:08 | DVHPNRES ---
Progress Note Date Seen: May 12, 2025 Resident Creating Document: SOFIA HERNANDEZ Medical Necessity Reason Pt with a Central, PICC or Fol: No Subjective Review of Systems This is a 54-year-old male with a known history of rheumatoid arthritis (on Remicade every 6 weeks), diabetes, and hypertension (both not on medication). He presented to the emergency department with severe, intractable back pain of 3 days duration, rated 9/10, aching in nature, radiating to the left leg, and associated with leg weakness. The pain was exacerbated by forward bending and rendered him non-ambulatory. He denied trauma but reported nausea and vomiting for 2 days, with 23 episodes of nonbloody emesis and poor oral intake. He had a recent cold 10 days prior without fever or respiratory symptoms. Past surgical history includes tonsillectomy and inguinal hernia repair. He lives with family, smokes cigars and drinks alcohol on weekends, and denies drug use. He is allergic to almonds. Patient was seen today at bedside. Labs and chart reviewed. Patient on IV antibiotic cefepime and vancomycin for bacteremia with a Staphylococcus aureus, sensitive to vancomycin. Repeat blood culture on 05/08/2025 negative for any growth so far. Ordered MRI of the cervical spine, thoracic spine, lumbar spine to find the source of bacteremia, especially to rule out spinal or paravertebral abscess. ABRAHAM negative for infective endocarditis. On evaluation today, he states he is well, pain is manageable. Blood culture was negative. His vitals have remained stable for discharge home, follow up visit in discharge clinic. All medications and recommendations were thoroughly explained and the patient states he understands and agrees. Detailed discussion held with patient at bedside were all questions were answered and concerns were addressed. Discharge Plan home medications- IV Levofloxacin for 7 days , ibuprofen for pain relief as needed Follow up with the PCP in one week Objective vital signs Vital Sign Date Time Temp Pulse Resp B/P (MAP) Pulse Ox O2 Delivery O2 Flow Rate FiO2 05/12/25 13:33 87 123/79 05/12/25 11:58 36.5 18 97 05/12/25 08:00 Room Air* 0 21 Total Intake and Output 05/11/25 05/11/25 05/12/25 15:00 23:00 07:00 Intake Total 100 ml 800 ml Output Total 1200 ml 975 ml Balance -1100 ml -175 ml medications Current Medications Medications Dose Ordered Sig/Beronica Route Start Time Stop Time Status Last Admin Dose Admin Baclofen 10 mg BID PO 05/04/25 10:00 05/12/25 10:19 10 MG Acetaminophen 650 mg Q6HP PRN PO 05/03/25 20:00 05/05/25 16:20 650 MG Ondansetron HCl 4 mg Q4HP PRN IV 05/03/25 20:00 Cefepime HCl 50 ml @ 12.5 mls/hr Q12HR IV 05/04/25 10:00 UNV Enoxaparin Sodium 150 mg Q12HR SC 05/04/25 10:00 UNV Enoxaparin Sodium 150 mg BID SC 05/04/25 10:00 05/12/25 10:20 150 MG Diltiazem HCl 30 mg Q6HR PO 05/05/25 00:00 05/12/25 13:33 30 MG Lactulose 30 ml BIDPRN PRN PO 05/09/25 15:30 05/10/25 06:39 30 ML Morphine Sulfate 2 mg Q6HPRN PRN IV 05/10/25 13:45 Ibuprofen 600 mg BID PO 05/10/25 22:00 05/12/25 10:20 600 MG Levofloxacin/ Dextrose 100 ml @ 100 mls/hr DAILY@2030 IV 05/10/25 20:30 05/11/25 19:54 100 MLS/HR Examination General Appearance: Cooperative. Well developed. Well nourished. NAD. Head Exam: Normal inspection Neck Exam: Normal inspection. Non-tender. Normal alignment Pulmonary/Respiratory: Chest non-tender. decreased air entry bilaterally, no crackles, no wheezing. Cardiovascular/Chest: irregularly rate and rhythm. No murmurs. No JVD. Peripheral Pulses: 2+ Radial (R). 2+ Radial (L). 2+ Pedal (R). 2+ Pedal (L) Abdominal Exam: Normal bowel sounds. Soft. obese abdomen, no visible veins, Nontender. No hepatospenomegaly. No masses,with red,erythematous linear area approximately 10 cm long Ankle Exam: Negative ankle edema Lower extremities: Negative lower extremity edema Neuro/Mental Status: A&O x4. Coherent. Thoughts/Psych: Normal thought pattern. Appropriate mood and affect. Good judgement and insight Skin Exam: Normal inspection. Normal color. Warm. Dry Patient has tenderness on palpation in lower lumbar and sacral area (L5-S1) and left paraspinal area. laboratory and microbiology Laboratory Tests 05/12/25 09:24 Test 05/12/25 09:24 Range/Units Serum Glucose 176 H 74-106 mg/dL Microbiology Date/Time Source Procedure Growth Status 05/08/25 12:10 Blood Blood Culture - Preliminary NO GROWTH AFTER 72 HOURS OF INCUBATION. Resulted 05/04/25 13:30 Voided Urine Urine Culture - Final Complete 05/04/25 10:08 Nose MRSA Screen - Final Complete Labs and/or images reviewed: Labs reviewed by me, Image(s) reviewed by me Problem List/Assessment/Plan Problem List/Assessment/Plan Sepsis, unspecified source for now Ruled out Infective endocarditis Gram-positive bacteremia AFib with RVR with a secondary hypercoagulable state -3 set of blood cultures showed Gram-positive bacteremia -repeat blood culture -started on vancomycin and cefepime -repeated blood cultures on ordered urine culture, james cultures -consulted Cardiology due to AFib, advised to start on diltiazem and therapeutic Lovenox -continuously monitor telemetry and EKG changes -Echo-MILD LVH AND MILD LV DIASTOLIC DYSFUNCTION,LV EF IS 55% -continuously monitor labs and electrolytes -ABRAHAM -There appears to be mild left atrial enlargement with concentric LVH.EF of 60% with normal RV function. - Doppler reveals moderate tricuspid regurgitation. There was mild mitral insufficiency. [id number] aortic insufficiency. - No pericardial effusion masses or vegetations discernible. Left atrial appendage is clean. No intra-atrial shunting and or other anomaly noted. A bubble study was not performed Severe paraspinal muscle spasm -baclofen and flexeril -hot pack -ibuprofen -Lumbar spine CT-No acute fracture or dislocation. -Degenerative changes at L4-L5 and L5-S Intractable nausea and vomiting,possibly due to ? 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 Hyperbilirubinemia -total bilirubin 2.3 -monitor labs for now Left renal cyst - CT showed 3.1 cm -outpatient follow up PUD prophylaxis: protonix 40mg DVT prophylaxis: Levonox 40mg Goals of care: Full code, discussed for >16 minutes on 05/12/25 Plan discussed with patient Plan discussed with Dr. Reyes Plan discussed with: Patient Dietary Evaluation Review Comments: Nutrition Recommendation: 1) Consider CCHO 75gm + 2gm Na diet 2) Consider Glucerna 240ml TID if PO intake <50% 3) Refer Diesel Motor Mechanic for diabetes education Expected Outcomes/Goals: To meet >75% estimated needs GI symptoms to improve Fu 3-5 days Date of Service: May 12, 2025 Billing Provider: DUSTIN REYES MD Common Visit Codes: [id number] INP/OBS CARE(MOD) SOFIA HERNANDEZ RESIDENT May 12, 2025 14:08 DUSTIN REYES MD May 13, 2025 21:25
--- NOTE | 2025-05-12 21:26 | DVHPN2 ---
Progress Note - Dictate Date Seen: May 12, 2025 Medical Necessity Reason Pt with a Central, PICC or Fol: No Subjective Patient was seen and evaluated in follow up. Patient has no new complaints at this time. Patient denies any cardiac symptoms. Patient is cardiac stable for discharge. Telemetry reviewed. vital signs Vital Sign Date Time Temp Pulse Resp B/P (MAP) Pulse Ox O2 Delivery O2 Flow Rate FiO2 05/12/25 13:33 87 123/79 05/12/25 11:58 36.5 18 97 05/12/25 08:00 Room Air* 0 21 Total Intake and Output 05/11/25 05/11/25 05/12/25 14:59 22:59 06:59 Intake Total 100 ml 800 ml Output Total 1200 ml 975 ml Balance -1100 ml -175 ml medications Current Medications Medications Dose Ordered Sig/Beronica Route Start Time Stop Time Status Last Admin Dose Admin Baclofen 10 mg BID PO 05/04/25 10:00 05/12/25 10:19 10 MG Acetaminophen 650 mg Q6HP PRN PO 05/03/25 20:00 05/05/25 16:20 650 MG Ondansetron HCl 4 mg Q4HP PRN IV 05/03/25 20:00 Cefepime HCl 50 ml @ 12.5 mls/hr Q12HR IV 05/04/25 10:00 UNV Enoxaparin Sodium 150 mg Q12HR SC 05/04/25 10:00 UNV Enoxaparin Sodium 150 mg BID SC 05/04/25 10:00 05/12/25 10:20 150 MG Diltiazem HCl 30 mg Q6HR PO 05/05/25 00:00 05/12/25 13:33 30 MG Lactulose 30 ml BIDPRN PRN PO 05/09/25 15:30 05/10/25 06:39 30 ML Morphine Sulfate 2 mg Q6HPRN PRN IV 05/10/25 13:45 Ibuprofen 600 mg BID PO 05/10/25 22:00 05/12/25 10:20 600 MG Levofloxacin/ Dextrose 100 ml @ 100 mls/hr DAILY@2030 IV 05/10/25 20:30 05/11/25 19:54 100 MLS/HR objective GENERAL: Alert and oriented x 3. No acute distress. EYES: PERRL, EOMI. Anicteric. HENT: Moist mucous membranes. LUNGS: Clear to auscultation bilaterally. CARDIOVASCULAR: Regular rate and rhythm. ABDOMEN: Soft, nontender and nondistended. EXTREMITIES: No edema. NEUROLOGIC: No focal neurological deficits. SKIN: Warm, dry. laboratory and microbiology Laboratory Tests 05/12/25 09:24 Test 05/12/25 09:24 Range/Units Serum Glucose 176 H 74-106 mg/dL Problem List Bacteremia, rule out infective endocarditis. Atrial fibrillation with rapid ventricular rate, unspecified, now with controlled rate. Hypertension. Rheumatoid arthritis. Prediabetes HgbA1C 6.1%. Acute kidney injury. Elevated LFTs. Cigar/alcohol abuse. Morbid obesity. Assessment/Plan Continued all current supportive medical care. Cardizem. DVT prophylactics. Antibiotics as ordered. Morphine for pain management. Additional plan as per the hospital course. Dietary Evaluation Review Comments: Nutrition Recommendation: 1) Consider CCHO 75gm + 2gm Na diet 2) Consider Glucerna 240ml TID if PO intake <50% 3) Refer Gauge Inspector for diabetes education Expected Outcomes/Goals: To meet >75% estimated needs GI symptoms to improve Fu 3-5 days Plan discussed with: Patient MESHA HERNANDES MD May 12, 2025 13:56
== END 2025-05-12 14:10 | disposition home health service (06) | DRG 871 ==
LOC: ER 07:07 → EDBD 07:07 → OVERFLOW 19:52 → TELE-CENTR 05-04 04:48
PROVIDERS: ADMIT Internal Medicine Geriatric Medicine; ATTEND Internal Medicine Geriatric Medicine
PROC: B24BZZ4 Ultrasonography of Heart with Aorta, Transesophageal (ICD-10-PCS; 2025-05-07)
PROC: 05HC33Z Insertion of Infusion Device into Left Basilic Vein, Percutaneous Approach (ICD-10-PCS; principal; 2025-05-10)
PROC: B54NZZA Ultrasonography of Left Upper Extremity Veins, Guidance (ICD-10-PCS; 2025-05-10)
DX: A41.9 Sepsis, unspecified organism (principal); N17.0 Acute kidney failure with tubular necrosis; D68.69 Other thrombophilia; Z68.42 Body mass index [BMI] 45.0-49.9, adult; Z20.822 Contact with and (suspected) exposure to COVID-19; E11.9 Type 2 diabetes mellitus without complications; R16.0 Hepatomegaly, not elsewhere classified; N28.1 Cyst of kidney, acquired; E80.6 Other disorders of bilirubin metabolism; K52.9 Noninfective gastroenteritis and colitis, unspecified; M62.830 Muscle spasm of back; K76.0 Fatty (change of) liver, not elsewhere classified; M06.9 Rheumatoid arthritis, unspecified; F10.10 Alcohol abuse, uncomplicated; E66.01 Morbid (severe) obesity due to excess calories; I48.91 Unspecified atrial fibrillation; Y90.9 Presence of alcohol in blood, level not specified; I10 Essential (primary) hypertension; R79.89 Other specified abnormal findings of blood chemistry; F17.210 Nicotine dependence, cigarettes, uncomplicated; I35.1 Nonrheumatic aortic (valve) insufficiency; I07.1 Rheumatic tricuspid insufficiency; Z79.84 Long term (current) use of oral hypoglycemic drugs; Z82.49 Family history of ischemic heart disease and other diseases of the circulatory system; Z83.3 Family history of diabetes mellitus; Z91.018 Allergy to other foods
CPT/HCPCS: 36415; 71046; 72131; 74177; 80048; 80053; 80061; 80202; 81001; 82565; 83036; 83605; 83690; 83735; 83880; 84443; 84484; 85007; 85025; 85027; 85610; 85652; 85730; 86141; 86803; 86850; 86900; 86901; 87040; 87077; 87081; 87086; 87147; 87186; 87340; 87426; 87804; 93005; 93306; 93312; 96361; 96374; 96375; 97110; 97116; 97163; 97530; 99152; G0378; J0692; J1885; J1956; J2250; J2405; J3480

== ENCOUNTER 2025-06-03 18:36 | Inpatient (IN) | payer BC ==
[~2025-06-03] VITALS: Ht 185.4 cm; Wt 136.7 kg
--- NOTE | 2025-06-03 18:55 | ED.PDOC ---
History of Present Illness HPI Comments 54-year-old male who came to ER via EMS for low blood pressure. Patient was discharged here last May 12, diagnosed with 1. Sepsis, unspecified, 2. Gram-positive bacteremia, 3. AFib with RVR with a secondary hypercoagulable state, 4. Severe paraspinal muscle spasm, 5. Intractable nausea and vomiting,possibly due to ? gastroenteritis, 6. JARED,likely due to VMN, 7. Diabetes mellitus type 2,uncontrolled, 8. 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 Hyperbilirubinemia, 10. Left renal cyst. Four days ago, patient started ongoing physical therapy for his lower back pains, however lower back pain progressively worsened, with his legs feel numb. He had a near syncopal attack earlier today. Upon arrival the paramedics, blood pressure was 77/64 mm Hg Chief Complaint: Low Blood Pressure Time Seen by MD: 18:53 Reviewed Notes: Glassblower Notes Allergies: Uncoded Allergies: almond (Allergy, Unknown, 05/04/25) Information Source: Patient, Emergency Med Personnel Mode of Arrival: EMS Severity: Moderate Timing: Days Duration: Intermittent Past Medical History PAST MEDICAL HISTORY: AFIB, DM Surgical History: Denies all surgeries Surgical History (Other): Transesophageal echocardiogram Family History Family History: Reviewed,noncontributory to illness Social History Smoker: Non-Smoker Alcohol: Denies ETOH Use Drugs: Denies Drug Use Lives In: Home Constitutional: denies: chills, diaphoresis, fatigue, fever, malaise, sweats, weakness, others EENTM: denies: blurred vision, double vision, ear bleeding, ear discharge, ear drainage, ear pain, ear ringing, eye pain, eye redness, hearing loss, mouth pain, mouth swelling, nasal discharge, nose bleeding, nose congestion, nose pain, photophobia, tearing, throat pain, throat swelling, voice changes, others Respiratory: denies: cough, hemoptysis, orthopnea, SOB at rest, shortness of breath, SOB with excertion, stridor, wheezing, others Cardiovascular: denies: chest pain, dizzy spells, diaphoresis, Dyspnea on exertion, edema, irregular heart beat, left arm pain, lightheadedness, palpitations, PND, syncope, others Gastrointestinal: denies: abdomen distended, abdominal pain, blood streaked bowels, constipated, diarrhea, dysphagia, difficulty swallowing, hematemesis, melena, nausea, poor appetite, poor fluid intake, rectal bleeding, rectal pain, vomiting, others Genitourinary: denies: burning, dysuria, flank pain, frequency, hematuria, incontinence, penile discharge, penile sore, pain, testicle pain, testicle swelling, urgency, others Neurological: reports: fainting; denies: dizziness, headache, left sided numbness, left sided weakness, numbness, paresthesia, pre-existing deficit, right sided numbness, right sided weakness, seizure, speech problems, tingling, tremors, weakness, others Musculoskeletal: reports: back pain; denies: gout, joint pain, joint swelling, muscle pain, muscle stiffness, neck pain, others Integumetry: denies: bruises, change in color, change in hair/nails, dryness, laceration, lesions, lumps, rash, wounds, others Allergic/Immunocompromised: denies: Difficulty Healing, Frequent Infections, Hives, Itching, others Hematologic/Lymphatic: denies: anemia, blood clots, easy bleeding, easy bruising, swollen glands, others Endocrine: denies: excessive hunger, excessive sweating, excessive thirst, excessive urination, flushing, intolerance to cold, intolerance to heat, unexplained weight gain, unexplained weight loss, others Psychiatric: denies: anxiety, bipolar disorder, depression, hopeless, panic disorder, schizophrenia, sleepless, suicidal, others Physical Exam General Appearance: No Apparent Distress, Normal HEENT: Normal ENT Inspection, Pharynx Normal, TMs Normal Neck: Full Range of Motion, Non-Tender, Normal, Normal Inspection Respiratory: Chest Non-Tender, Lungs Clear, No Accessory Muscle Use, No Respiratory Distress, Normal Breath Sounds Cardiovascular: No Edema, No JVD, No Murmur, No Gallop, Normal Peripheral Pulses, Regular Rate/Rhythm Breast Exam: Deferred Gastrointestinal: No Organomegaly, Non Tender, No Pulsatile Mass, Normal Bowel Sounds, Soft Genitalia: Deferred Pelvic: Deferred Rectal: Deferred Extremities: No calf tenderness, Normal capillary refill, Normal inspection, Normal range of motion, Non-tender, No pedal edema Musculoskeletal : Apperance: Normal Neurologic: Alert, negative turner II-XII nml as Tested, No Motor Deficits, Normal Affect, Normal Mood, No Sensory Deficits Cerebellar Function: Normal Reflexes: Normal Skin: Dry, Normal Color, Warm Lymphatic: No Adenopathy Was a procedure done? Was a procedure done?: No Differential Dx Considerations may include: Anemia, electrolyte imbalance, musculoskeletal pain, sepsis, hypotension X-Ray, Labs, Meds, VS Vital Signs Date Time Temp Pulse Resp B/P (MAP) Pulse Ox O2 Delivery O2 Flow Rate FiO2 06/03/25 20:00 106 20 115/52 (73) 96 06/03/25 19:45 103 22 103/63 (76) 95 06/03/25 19:30 98.0 101 16 71/43 (52) 92 98.0 06/03/25 19:30 Room Air* 0 21 06/03/25 18:44 99.0 110 18 77/64 99 99.0 Lab Test 06/03/25 19:32 06/03/25 19:05 Range/Units POC Glucose 162 H 70-106 mg/dl White Blood Count 8.6 4.4-10.8 10^3/uL Red Blood Count 4.25 L 4.5-5.90 10^6/uL Hemoglobin 12.3 L 13.5-17.5 g/dL Hematocrit 35.5 L 41.0-53.0 % Mean Corpuscular Volume 83.5 80.0-100.0 fL Mean Corpuscular Hemoglobin 28.8 28.0-32.0 pg Mean Corpuscular Hemoglobin Concent 34.6 32.0-36.0 g/dL Red Cell Distribution Width 15.3 H 11.8-14.3 % Platelet Count 194 140-450 10^3/uL Mean Platelet Volume 7.8 6.9-10.8 fL Neutrophils (%) (Auto) 86.1 H 37.0-80.0 % Lymphocytes (%) (Auto) 5.3 L 10.0-50.0 % Monocytes (%) (Auto) 7.1 0.0-12.0 % Eosinophils (%) (Auto) 1.3 0.0-7.0 % Basophils (%) (Auto) 0.2 0.0-2.0 % Neutrophils # (Auto) 7.4 1.6-8.6 10 ^3/uL Lymphocytes # (Auto) 0.5 0.4-5.4 10 ^3/uL Monocytes # (Auto) 0.6 0-1.3 10 ^3/uL Eosinophils # (Auto) 0.1 0-0.8 10 ^3/uL Basophils # (Auto) 0 0-0.2 10 ^3/uL Nucleated Red Blood Cells 0.0 % Sodium Level 136 136-145 mmol/L Potassium Level 4.1 3.5-5.1 mmol/L Chloride Level 102 98-107 mmol/L Carbon Dioxide Level 22 20-31 mmol/L Anion Gap 12 5-15 Blood Urea Nitrogen 20 9-23 mg/dL Creatinine 1.30 0.700-1.30 mg/dL Glomerular Filtration Rate Calc 66 >90 mL/min BUN/Creatinine Ratio 15.4 10.0-20.0 Serum Glucose 161 H 74-106 mg/dL Lactic Acid Level 1.4 0.4-2.0 mmol/L Calcium Level 9.5 8.7-10.4 mg/dL Total Bilirubin 1.9 H 0.2-1.0 mg/dL Aspartate Amino Transferase (AST) 19 13-40 U/L Alanine Aminotransferase (ALT) 15 7-40 U/L Alkaline Phosphatase 64 46-116 U/L Total Protein 7.8 5.7-8.2 g/dL Albumin 4.3 3.2-4.8 g/dL Current Medications Medications (Trade) Dose Ordered Sig/Beronica Route Start Time Stop Time Status Last Admin Sodium Chloride 1,000 ml @ 1,000 mls/hr Q1H ONCE IVB 06/03/25 19:00 06/03/25 19:59 DC 06/03/25 19:22 PROCEDURE(s): LUMB2 - LUMBAR SPINE 3 VIEW REASON: low back pain ORDER NUMBER(s): [id number], ACCESSION NUMBER(s): [id number] CLINICAL INDICATION: low back pain TECHNIQUE: 3 radiographic views of the lumbar spine were obtained. Comparison: None FINDINGS/IMPRESSION: 3 views of the lumbar spine demonstrate: Bony spondylosis and degenerative disc changes at T10, T11, T12, L1 Grade 1 anterior spondylolisthesis is noted at L4-5. There are no compressed vertebra. Time of 1ST Reevaluation: 18:53 Reevaluation 1ST: Unchanged Patient Education/Counseling: Diagnosis, Treatment Family Education/Counseling: No Family Present SEPSIS Sepsis Screen Date sepsis recognized/suspect: Jun 03, 2025 Time Sepsis recognized/suspect: 1844 Recent Procedure: No On Antibiotic Therapy: No Respiratory Rate >20: No Heart Rate >90: Yes Temp<36 C (96.8 F) or >38.3 C: No SBP <90 or MAP <65 mmHG: Yes New Acute Mental Status Change: No Is the patient on CPAP, BIPAP,: No Physician Orders Urinalysis (06/03/25 18:47) Blood Culture (06/03/25 18:47) Electrocardigram (06/03/25 18:47) Lumbar Spine 3 View (06/03/25 18:47) Vital Signs Date Time Temp Pulse Resp B/P (MAP) Pulse Ox O2 Delivery O2 Flow Rate FiO2 06/03/25 20:00 106 20 115/52 (73) 96 06/03/25 19:45 103 22 103/63 (76) 95 06/03/25 19:30 98.0 101 16 71/43 (52) 92 98.0 06/03/25 19:30 Room Air* 0 21 06/03/25 18:44 99.0 110 18 77/64 99 99.0 Laboratory Tests Test 06/03/25 19:05 Lactic Acid Level 1.4 mmol/L (0.4-2.0) White Blood Count 8.6 10^3/uL (4.4-10.8) Medications Medications Dose Ordered Sig/Beronica Route Start Time Stop Time Status Last Admin Dose Admin Sodium Chloride 1,000 ml @ 1,000 mls/hr Q1H ONCE IVB 06/03/25 19:00 06/03/25 19:59 DC 06/03/25 19:22 Departure 1 Departure Time of Disposition: 21:31 Impression: Primary Impression: Intractable back pain Additional Impression: Hypotension Disposition: ADMITTED INPATIENT Admit to: Med Surg Condition: Guarded Discharged With: Self Comments 54-year-old male with a history of low back pain now with severe low back pain and had a syncopal episode at home. His blood pressure was low when he got here. We gave some IV fluids and improved. On his lab review his glucose is slightly elevated 161. His total bilirubin is elevated 1.9. X-rays of the lumbar spine show significant degenerative changes. Patient is unable to perform ADLs at home and will need admission for supportive care and further workup. Per Critical Care Note Critical Care Time?: No Stability Stability form required: No Heart Score Heart Score: Heart Score Response (Comments) Value History N/A 0 EKG N/A 0 Age N/A 0 Risk Factors N/A 0 Troponin N/A 0 Total 0 I personally scribed for CONSTANZA ARAUJO MD (BALDEMAR) on 06/03/25 at 18:55. Electronically submitted by Topher Vazquez ([email or web address]). I personally scribed for CONSTANZA ARAUJO MD (BALDEMAR) on 06/03/25 at 18:57. Electronically submitted by Topher Vazquez ([email or web address]). I personally scribed for CONSTANZA ARAUJO MD (BALDEMAR) on 06/03/25 at 21:19. Electronically submitted by Topher Vazquez ([facility] CONSTANZA ARAUJO MD Jun 03, 2025 18:55
[2025-06-03] MEDS: SODIUM CHLORIDE 0.9% 1,000 ML IVB ONE (19:22)
[2025-06-03 19:34] LABS: Hematocrit 35.5 % (41.0-53.0); Hemoglobin 12.3 g/dL (13.5-17.5); Mean Corpuscular Hemoglobin 28.8 pg (28.0-32.0); Mean Corpuscular Volume 83.5 fL (80.0-100.0); Nucleated Red Blood Cells % 0.0 %
[2025-06-03 19:50] LABS: Alanine Aminotransferase 15 U/L (7-40); Albumin 4.3 g/dL (3.2-4.8); Alkaline Phosphatase 64 U/L (46-116); Anion Gap 12 (5-15); BUN/Creatinine Ratio 15.4 (10.0-20.0); Blood Urea Nitrogen 20 mg/dL (9-23); Calcium 9.5 mg/dL (8.7-10.4); Carbon Dioxide 22 mmol/L (20-31); Chloride 102 mmol/L (98-107); Potassium 4.1 mmol/L (3.5-5.1); Total Protein 7.8 g/dL (5.7-8.2)
[2025-06-03 19:51] LABS: Bilirubin, Total 1.9 mg/dL (0.2-1.0); Glucose 161 mg/dL (74-106); Sodium 136 mmol/L (136-145)
--- NOTE | 2025-06-03 20:49 | DVH ---
CLINICAL INDICATION: low back pain TECHNIQUE: 3 radiographic views of the lumbar spine were obtained. Comparison: None FINDINGS/IMPRESSION: 3 views of the lumbar spine demonstrate: Bony spondylosis and degenerative disc changes at T10, T11, T12, L1 Grade 1 anterior spondylolisthesis is noted at L4-5. There are no compressed vertebra.
[2025-06-03] MEDS ORDERED: DOCUSATE SOD 100 MG CAP PO PRN (22:30)
[2025-06-03] MEDS ORDERED: ACETAMINOPHEN 325 MG TAB PO PRN (22:30)
[2025-06-03] MEDS ORDERED: ONDANSETRON HCL 4 MG/2 ML VIAL IV PRN (22:30)
[2025-06-03] MEDS ORDERED: DEXTROSE (50%) 50ML SYRG IV PRN (22:30)
[2025-06-03] MEDS: SODIUM CHLORIDE 0.9% 1,000 ML IV SCH (22:50)
[2025-06-03] MEDS ORDERED: MORPHINE SULFATE INJ 2 MG/ml SYRG IV PRN (23:00)
[2025-06-03] MEDS ORDERED: NITROGLYCERIN 0.4 MG SL TAB SL PRN (23:00)
--- NOTE | 2025-06-03 23:01 | DVHHP2 ---
History of Present Illness Reason for Visit: Hypotension History of Present Illness The patient is a 54-year-old male with past medical history of AFib, hypertension, and diabetes mellitus who presented to [facility] ED with complaint of lower back pain associated with low blood pressure. Patient was discharged here last May 12, 2025 with multiple medical diagnoses including AFib with RVR, sepsis, unspecified, severe paraspinal muscle spasm, and Gram-positive bacteremia. Patient started ongoing physical therapy for her back pain, however lower back pain progressively worsened associated with legs numbness. Patient had a near syncopal attack earlier today. When paramedics ar rived on the scene, blood pressure was 77/64 mm Hg. Patient was seen and evaluated in the ED, laboratory data shows WBC 8.6, platelets 194, sodium 136, potassium 4.1, BUN 20, creatinine 1.30, glucose 161, calcium 9.5, total bilirubin 1.9, blood pressure 115/52, heart rate 106, temperature 98.0 F, O2 saturation 96% on room air. Please see medication orders section in the computer. On my assessment, patient denied chest pain, no headache, dizziness, diaphoresis, shortness a breath, no abdominal pain, diarrhea, nausea, vomiting, fever, chills. Patient was admitted for further evaluation and medical management. Past Medical History AFIB, DM Past Surgical History Denies all surgeries Family History Reviewed, noncontributory to the management of this case. Past Social History The patient lives at home, denies smoking, alcohol or illicit drugs abuse. Review of Systems Constitutional: Yes: Weakness; No: Fever, Chills, Sweats, Malaise, Other Eyes: No: Pain, Vision change, Conjunctivae inflammation, Eyelid inflammation, Other, Redness ENT: No: Ear pain, Ear discharge, Nose pain, Nose discharge, Nose congestion, Mouth pain, Mouth swelling, Throat pain, Throat swelling, Other Respiratory: No: Cough, Dry, Shortness of breath, SOB with excertion, Wheezing, Hemoptysis, Pleuritic Pain, Sputum, Wheezing, Other Cardiovascular: Other (Hypotension); No: Chest Pain, Palpitations, Orthopnea, Paroxysmal Noc. Dyspnea, Edema, Lt Headedness Gastrointestinal: No: Nausea, Vomiting, Abdominal Pain, Diarrhea, Constipation, Melena, Hematochezia, Other Genitourinary: No Dysuria, No Frequency, No Incontinence, No Hematuria, No Retention, No Other Musculoskeletal: other (Lower back pain), back pain; No: neck pain, shoulder pain, arm pain, hand pain, leg pain, foot pain Skin: No: Rash, Lesions, Jaundice, Bruising, Other Neurological: Other (Fainting); No: Weakness, Numbness, Incoordination, Change in speech, Confusion, Seizures Allergies: Uncoded Allergies: almond (Allergy, Unknown, 05/04/25) Medications Current Medications Medications Dose Ordered Sig/Beronica Route Start Time Stop Time Status Last Admin Dose Admin Aspirin 81 mg DAILY PO 06/04/25 10:00 Diagnostic Test (Pha) 1 strip ACHS 06/04/25 07:00 Insulin Human Regular HS SC 06/04/25 22:00 Insulin Human Regular AC SC 06/04/25 07:00 Dextrose 50 ml UD PRN IV 06/03/25 22:30 Sodium Chloride 1,000 ml @ 60 mls/hr [id number] IV 06/03/25 22:30 06/03/25 22:50 60 MLS/HR Acetaminophen/ Hydrocodone Bitart 1 tab Q4HP PRN PO 06/03/25 22:30 Ondansetron HCl 4 mg Q4HP PRN IV 06/03/25 22:30 Docusate Sodium 100 mg BIDPRN PRN PO 06/03/25 22:30 Acetaminophen 650 mg Q6HP PRN PO 06/03/25 22:30 Exam Vital Signs Vital Signs Date Time Temp Pulse Resp B/P (MAP) Pulse Ox O2 Delivery O2 Flow Rate FiO2 06/03/25 20:00 106 20 115/52 (73) 96 06/03/25 19:30 98.0 98.0 06/03/25 19:30 Room Air* 0 21 General Appearance: Alert, Oriented X3, Cooperative, No acute distress HEENT: Atraumatic, PERRLA, EOMI, Mucous membr. moist/pink Respiratory: Clear to auscultation, Normal air movement Cardiovascular: Regular rate, Normal S1, Normal S2, No murmurs Abdominal: Normal bowel sounds, Soft, No tenderness, No hepatospenomegaly, No masses Extremities: No clubbing, No cyanosis, No edema, Normal pulses, No tenderness/swelling Skin: No rashes, No breakdown, No significant lesion Neuro: Normal speech, Normal tone, Sensation intact, Cranial nerves 3-12 NL, Reflexes 2+, Other (Generalized weakness) Psych/Mental Status: Mental status NL, Mood NL Labs/Xrays Labs Test 06/03/25 19:32 06/03/25 19:05 Range/Units POC Glucose 162 H 70-106 mg/dl White Blood Count 8.6 4.4-10.8 10^3/uL Red Blood Count 4.25 L 4.5-5.90 10^6/uL Hemoglobin 12.3 L 13.5-17.5 g/dL Hematocrit 35.5 L 41.0-53.0 % Mean Corpuscular Volume 83.5 80.0-100.0 fL Mean Corpuscular Hemoglobin 28.8 28.0-32.0 pg Mean Corpuscular Hemoglobin Concent 34.6 32.0-36.0 g/dL Red Cell Distribution Width 15.3 H 11.8-14.3 % Platelet Count 194 140-450 10^3/uL Mean Platelet Volume 7.8 6.9-10.8 fL Neutrophils (%) (Auto) 86.1 H 37.0-80.0 % Lymphocytes (%) (Auto) 5.3 L 10.0-50.0 % Monocytes (%) (Auto) 7.1 0.0-12.0 % Eosinophils (%) (Auto) 1.3 0.0-7.0 % Basophils (%) (Auto) 0.2 0.0-2.0 % Neutrophils # (Auto) 7.4 1.6-8.6 10 ^3/uL Lymphocytes # (Auto) 0.5 0.4-5.4 10 ^3/uL Monocytes # (Auto) 0.6 0-1.3 10 ^3/uL Eosinophils # (Auto) 0.1 0-0.8 10 ^3/uL Basophils # (Auto) 0 0-0.2 10 ^3/uL Nucleated Red Blood Cells 0.0 % Sodium Level 136 136-145 mmol/L Potassium Level 4.1 3.5-5.1 mmol/L Chloride Level 102 98-107 mmol/L Carbon Dioxide Level 22 20-31 mmol/L Anion Gap 12 5-15 Blood Urea Nitrogen 20 9-23 mg/dL Creatinine 1.30 0.700-1.30 mg/dL Glomerular Filtration Rate Calc 66 >90 mL/min BUN/Creatinine Ratio 15.4 10.0-20.0 Serum Glucose 161 H 74-106 mg/dL Lactic Acid Level 1.4 0.4-2.0 mmol/L Calcium Level 9.5 8.7-10.4 mg/dL Total Bilirubin 1.9 H 0.2-1.0 mg/dL Aspartate Amino Transferase (AST) 19 13-40 U/L Alanine Aminotransferase (ALT) 15 7-40 U/L Alkaline Phosphatase 64 46-116 U/L Total Protein 7.8 5.7-8.2 g/dL Albumin 4.3 3.2-4.8 g/dL PATIENT: JANAY OLSON ACCT: [id number] UNIT: [id number] : 1970 LOC: ER ROOM / BED: / AGE / SEX: 54 / M ADM STATUS: REG ER SERVICE 46 ORDERING PHYSICIAN: CONSTANZA ARAUJO MD PROCEDURE(s): LUMB2 - LUMBAR SPINE 3 VIEW REASON: low back pain ORDER NUMBER(s): [id number], ACCESSION NUMBER(s): [id number] CLINICAL INDICATION: low back pain TECHNIQUE: 3 radiographic views of the lumbar spine were obtained. Comparison: None FINDINGS/IMPRESSION: 3 views of the lumbar spine demonstrate: Bony spondylosis and degenerative disc changes at T10, T11, T12, L1 Grade 1 anterior spondylolisthesis is noted at L4-5. There are no compressed vertebra. SEPSIS Sepsis Screen Date sepsis recognized/suspect: Jun 03, 2025 Time Sepsis recognized/suspect: 1844 Recent Procedure: No On Antibiotic Therapy: No Respiratory Rate >20: No Heart Rate >90: Yes Temp<36 C (96.8 F) or >38.3 C: No SBP <90 or MAP <65 mmHG: Yes New Acute Mental Status Change: No Is the patient on CPAP, BIPAP,: No Physician Orders Urinalysis (06/03/25 18:47) Blood Culture (06/03/25 18:47) Electrocardigram (06/03/25 18:47) Lumbar Spine 3 View (06/03/25 18:47) Consistent Carb(Ccho)Diabetes (06/04/25 Breakfast) Aspirin Tablet (06/04/25 10:00) Glucose Blood (Accu-Chek Comfort Curve T (06/04/25 07:00) Insulin R (Human) (Insulin R) (06/04/25 22:00) Insulin R (Human) (Insulin R) (06/04/25 07:00) Dextrose 50% Syringe (06/03/25 22:30) Allergies (06/03/25 22:16) Code Status (06/03/25:16) Sodium Chloride 0.9% (06/03/25 22:30) Oxygen Per Hour (06/03/25:16) Hydrocodone-Acet 5/325mg Tab (Lagrange 5/32 (06/03/25 22:30) Ondansetron Hcl (Zofran) (06/03/25 22:30) Docusate Sodium Capsule (Colace Capsule) (06/03/25 22:30) Fall Risk Precautions In Place QSHIFT (06/03/25:16) Complete Blood Count (06/04/25 04:00) Comprehensive Metabolic Panel (06/04/25 04:00) Condition: Serious (06/03/25:16) Acetaminophen Tablet (Tylenol Tablet) (06/03/25 22:30) Maintain Bed Rest (06/03/25 22:16) Sequential Compression Device (06/03/25 ) Admit (06/03/25 23:00) Nitroglycerin Sublingual (Ntrostat Subli (06/03/25 23:00) Morphine Sulfate Injection (06/03/25 23:00) Stat Ekg For Chest Pain (06/03/25 23:00) Notify Md Of Changes From Base (06/03/25 23:00) Epoxy Coatings Installer For 24 Hours (06/03/25 23:00) Emergency Dysrhythmia Protocol (06/03/25 23:00) Rhythm Strips Once Every Shift (06/03/25 23:00) Oxygen By Nasal Cannula (06/03/25 23:00) Vital Signs Date Time Temp Pulse Resp B/P (MAP) Pulse Ox O2 Delivery O2 Flow Rate FiO2 06/03/25 20:00 106 20 115/52 (73) 96 06/03/25 19:45 103 22 103/63 (76) 95 06/03/25 19:30 98.0 101 16 71/43 (52) 92 98.0 06/03/25 19:30 Room Air* 0 21 06/03/25 18:44 99.0 110 18 77/64 99 99.0 Laboratory Tests Test 06/03/25 19:05 Lactic Acid Level 1.4 mmol/L (0.4-2.0) White Blood Count 8.6 10^3/uL (4.4-10.8) Medications Medications Dose Ordered Sig/Beronica Route Start Time Stop Time Status Last Admin Dose Admin Sodium Chloride 1,000 ml @ 60 mls/hr [id number] IV 06/03/25 22:30 06/03/25 22:50 60 MLS/HR Sodium Chloride 1,000 ml @ 1,000 mls/hr Q1H ONCE IVB 06/03/25 19:00 06/03/25 19:59 DC 06/03/25 19:22 1,000 MLS/HR Assessment/Plan Assessment/Plan Hypotension Intractable back pain Diabetes mellitus with hyperglycemia Plan 1. Admit to telemetry unit 2. Breathing treatment 3. Pain control management 4. Management of fluids and electrolytes 5. Consultation for hospitalized 6. Diagnostic tests chest x-ray 7. DVT prophylaxis on SCDs 8. Repeat labs CBC, CMP in a.m. 9. Continue with current medical management 10. Treatment plan discussed with patient and RN. Patient verbalized understanding. Plan discussed with: Patient, Other (RN) My Orders Orders - KIRTI LIRIANO DNP Procedure Category Date Status Time Consistent DIET 06/04/25 [facility]mitted [facility]Diabetes Breakfast Aspirin Tablet PHA 06/04/25 In Process 10:00 Glucose Blood PHA 06/04/25 In Process (Accu-Chek Comfort 07:00 Insulin R (Human) PHA 06/04/25 In Process (Insulin R) 22:00 Insulin R (Human) PHA 06/04/25 In Process (Insulin R) 07:00 Dextrose 50% Syringe PHA 06/03/25 In Process 22:30 Allergies ERICA 06/03/25 In Process 22:16 Code Status CODE 06/03/25 Transmitted 22:16 Sodium Chloride 0.9% PHA 06/03/25 In Process 22:30 Oxygen Per Hour RT 06/03/25 Transmitted 22:16 Hydrocodone-Acet PHA 06/03/25 In Process 5/325mg Tab (Lagrange 22:30 Ondansetron Hcl PHA 06/03/25 In Process (Zofran) 22:30 Docusate Sodium PHA 06/03/25 In Process Capsule (Colace 22:30 Fall Risk Precautions ERICA 06/03/[address] 22:16 Complete Blood Count LAB 06/04/25 Verified 04:00 Comprehensive LAB 06/04/25 Verified Metabolic Panel 04:00 Condition: Serious ERICA 06/03/25 In Process 22:16 Acetaminophen Tablet PHA 06/03/25 In Process (Tylenol Tablet) 22:30 Maintain Bed Rest ERICA 06/03/25 In Process 22:16 Sequential ERICA 06/03/25 In Process Compression Device Admit ADMIT 06/03/25 Verified 23:00 Nitroglycerin [facility] 06/03/25 Verified Sublingual (Ntrostat 23:00 Morphine Sulfate PHA 06/03/25 Verified Injection 23:00 Stat Ekg For Chest [facility] 06/03/25 Verified Pain 23:00 Notify Md Of Changes [facility] 06/03/25 Verified From Base 23:00 Epoxy Coatings Installer For [facility] 06/03/25 Verified 24 Hours 23:00 Emergency Dysrhythmia [facility] 06/03/25 Verified Protocol 23:00 Rhythm Strips Once [facility] 06/03/25 Verified Every Shift 23:00 Oxygen By Nasal RT 06/03/25 Verified Cannula 23:00 Problem List: (1) Hypotension (2) Intractable back pain (3) Diabetes mellitus with hyperglycemia Date of Service: Jun 03, 2025 Billing Provider: KIRTI LIRIANO DNP Common Visit Codes: [id number] INP/OBS CARE (HIGH) KIRTI LIRIANO DNP Jun 03, 2025 23:01
[2025-06-04] MEDS: HYDROcodone-ACET 5/325MG TAB PO PRN (00:56)
[2025-06-04 02:58] LABS: Urine Protein, UAD 1+ (Negative)
[2025-06-04 06:41] LABS: Hematocrit 31.9 % (41.0-53.0); Hemoglobin 11.1 g/dL (13.5-17.5); Mean Corpuscular Hemoglobin 28.7 pg (28.0-32.0); Mean Corpuscular Volume 82.4 fL (80.0-100.0); Nucleated Red Blood Cells % 0.0 %
[2025-06-04] MEDS: InsuLIN REG 1unit/0.01ml Soln (100units/ml) SC SCH ×2 (06:49→21:40)
[2025-06-04] MEDS: ACCU-CHEK COMFORT CURVE STRIP VI SCH (06:49)
[2025-06-04 06:56] LABS: Alanine Aminotransferase 16 U/L (7-40); Alkaline Phosphatase 61 U/L (46-116); Anion Gap 10 (5-15); BUN/Creatinine Ratio 17.2 (10.0-20.0); Blood Urea Nitrogen 20 mg/dL (9-23); Calcium 9.3 mg/dL (8.7-10.4); Carbon Dioxide 22 mmol/L (20-31); Chloride 104 mmol/L (98-107); Potassium 3.9 mmol/L (3.5-5.1); Sodium 136 mmol/L (136-145); Total Protein 7.2 g/dL (5.7-8.2)
[2025-06-04 06:57] LABS: Albumin 4.0 g/dL (3.2-4.8)
[2025-06-04 07:05] LABS: Bilirubin, Total 1.7 mg/dL (0.2-1.0); Glucose 107 mg/dL (74-106)
[2025-06-04 08:16] VITALS: PULSE 116; RESP 15; O2SAT 98
[2025-06-04] MEDS: APIXABAN 5 MG TAB PO SCH (10:15)
[2025-06-04] MEDS: AMIODARONE HCL 200 MG TAB PO SCH (10:15)
[2025-06-04] MEDS: METOPROLOL TARTRATE 25 MG TAB PO SCH (10:15)
[2025-06-04] MEDS ORDERED: VANCOMYCIN PER PHARMACY 0 MG IV SCH (12:00)
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
[2025-06-04] MEDS: VANCOMYCIN 1GM/250ML KIT 250 ML IV SCH (13:10)
[2025-06-04 13:35] VITALS: PULSE 106; RESP 18; O2SAT 97
[2025-06-04 17:00] VITALS: BP 115/82; PULSE 104; RESP 18; TEMP 99.6; O2SAT 97
[2025-06-04 17:25] VITALS: BP 122/91; PULSE 108; PULSE 115; RESP 18; TEMP 97.6; O2SAT 97
[2025-06-04 20:00] VITALS: PULSE 110; RESP 17; O2SAT 98
[2025-06-04 21:00] VITALS: BP 120/81; PULSE 109; RESP 17; TEMP 99.1; O2SAT 99
[2025-06-05] VITALS (8 sets, daily range): BP systolic 105–121; BP diastolic 75–90; PULSE 84–98; RESP 18–19; TEMP 97.7–98.6; O2SAT 96–98
[2025-06-05] MEDS: VANCOMYCIN 1.25GM/250ML 250 ML IV SCH (01:31)
--- NOTE | 2025-06-05 09:47 | ECG ---
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
--- NOTE | 2025-06-05 09:48 | ECG ---
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
[2025-06-05] MEDS: CYCLOBENZAPRINE HCL 10 MG TAB PO PRN (11:37)
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
--- NOTE | 2025-06-05 17:38 | DVH ---
EXAM: CT THORACIC SPINE WO CONTRAS INDICATION: BACK PAIN COMPARISON: None TECHNIQUE: Multiple axial CT images of the thoracic spine were obtained using bone algorithm. Axial and coronal reformatting was done. Bone and soft tissue windows were reviewed.Radiation optimization: All CT scans at this facility use at least one of these dose optimization techniques: automated expo sure control mA and/or kV adjustment per patient size (includes targeted exams where dose is matched to clinical indication) or iterative reconstruction. Radiation Dose Information: CT Dose: CTDI volume is 38.93+ 0.47 mGy. Dose-length product is 1756.84 mGy*cm FINDINGS: 12 rib-bearing thoracic type vertebral bodies. There is exaggeration of the thoracic kyphosis in the mid to lower thoracic spine. The vertebral body heights are maintained. There is no acute fracture. There is multilevel thoracic spondylosis with osteophyte formation and facet hypertrophy. No high-gr gabbie spinal stenosis. There is bilateral facet hypertrophy and disc osteophyte complex at resulting in axbz-qq-cupbdoyc bilateral neural foraminal stenosis at T5-T6 , moderate right neural foraminal sten osis at T6-T7, and [id number]-he-[id number] bilaterally at T7-T8. The posterior paraspinal soft tissues are u nremarkable. Mild calcified plaque throughout the thoracic aorta. IMPRESSION: 1. No CT evidence of acute fracture or traumatic mal-alignment of the bony thoracic spine. 2. Exaggeration of the thoracic kyphosis in the mid to lower thoracic spine. 3. Multilevel thoracic spondylosis. Ecio-cp-cbegxgwe degenerative bilateral neural foraminal stenosis at T5-T6 , moderate right degenerative neural foraminal stenosis at T6-T7, qpxb-[id number]-yxmyiixj bilatera l neural foraminal stenosis at T7-T8. 4. No high-grade Appearing spinal stenosis.
[2025-06-05] MEDS: HYDROmorphone HCL 2 MG/ML VL/or syr IV PRN (17:45)
--- NOTE | 2025-06-05 18:09 | DVH ---
CLINICAL HISTORY: BACK PAIN TECHNIQUE: CT of the lumbar spine was performed without intravenous contrast. This exam was performed according to our departmental dose optimization program. Up-to-date CT equipment and radiation dose reduction techniques are utilized as appropriate. 47.36 CTDI: 47.36 DLP: 2.47 WID: COMPARISON: CT LS SPINE WO CONTRAST on DOS: 05/03/25 FINDINGS: There are 5 crj-bqj-nciuybo lumbar type vertebral bodies. Minimal anterolisthesis at L4-L5 and minim al retrolisthesis at L5-S1. Otherwise normal alignment. Vertebral body heights are maintained. No ac [place] fracture. Multilevel lumbar spondylosis with multilevel facet hypertrophy and minor multilevel disc space narro wing. T12-L1, there is no significant stenosis. At L1-L2, there is a diffuse disc bulge and facet hypertrophy resulting in mild spinal stenosis and no significant neural foraminal stenosis. At L2-L3, there is diffuse disc bulge, facet hypertrophy, ligamentum flavum thickening resulting in m oderate spinal stenosis and minor bilateral neural foraminal stenosis. At L3-L4, there is a diffuse disc bulge, facet hypertrophy, ligamentum flavum thickening resulting in moderate to severe spinal stenosis and mild bilateral neural foraminal stenosis. At L4-L5, there is a diffuse disc bulge, facet hypertrophy, and ligamentum flavum thickening resultin g in severe spinal stenosis and moderate bilateral neural foraminal stenosis. At L5-S1, there is a diffuse disc bulge and facet hypertrophy resulting in moderate spinal stenosis a nd moderate bilateral neural foraminal stenosis. There is soft tissue stranding about the L5-S1 inter vertebral disc. There is interval mild lucency in the lateral aspect of the inferior endplate of L5 a nd along the superior endplate of S1. Posterior paraspinal soft tissues are intact. There is mild calcified plaque in the visualized aortoi liac vessels. IMPRESSION: 1. Interval soft tissue stranding about the L5-S1 disc space as well as some lucency in the lateral a spect of the inferior endplate of L5 and along the superior endplate of S1. This could be early findi ngs of discitis . acute inflammation associated with degenerative disc disease is also in the differe ntial. Correlate with clinical presentation and labs. Consider obtaining contrast-enhanced MRI lumbar spine to evaluate this finding if clinically indicated. 2. Multilevel degenerative change of the lumbar spine resulting in multilevel spinal stenosis up to s evere at L4-L5 and multilevel bony neural foraminal stenosis up to moderate bilaterally at L4-L5 and L5-S1.
[2025-06-06] VITALS (9 sets, daily range): BP systolic 79–134; BP diastolic 54–95; PULSE 80–106; RESP 16–19; TEMP 97.6–98.4; O2SAT 95–98
[2025-06-06 07:10] LABS: Hematocrit 31.1 % (41.0-53.0); Hemoglobin 11.0 g/dL (13.5-17.5); Mean Corpuscular Hemoglobin 29.1 pg (28.0-32.0); Mean Corpuscular Volume 81.8 fL (80.0-100.0); Nucleated Red Blood Cells % 0.0 %
[2025-06-06 07:11] LABS: Anion Gap 11 (5-15); Carbon Dioxide 23 mmol/L (20-31); Chloride 100 mmol/L (98-107); Potassium 3.9 mmol/L (3.5-5.1)
[2025-06-06 07:12] LABS: Calcium 8.8 mg/dL (8.7-10.4)
[2025-06-06 07:17] LABS: BUN/Creatinine Ratio 16.4 (10.0-20.0); Blood Urea Nitrogen 19 mg/dL (9-23)
[2025-06-06 07:39] LABS: Glucose 107 mg/dL (74-106); Sodium 134 mmol/L (136-145)
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
[2025-06-07] VITALS (7 sets, daily range): BP systolic 108–126; BP diastolic 73–85; PULSE 77–94; RESP 16–19; TEMP 97.4–98.9; O2SAT 92–99
[2025-06-07 07:24] LABS: Hematocrit 29.4 % (41.0-53.0); Hemoglobin 10.2 g/dL (13.5-17.5); Mean Corpuscular Hemoglobin 29.1 pg (28.0-32.0); Mean Corpuscular Volume 83.3 fL (80.0-100.0); Nucleated Red Blood Cells % 0.1 %
--- NOTE | 2025-06-07 12:17 | DVHINCON2 ---
Consultation - Spinal Surgery Date Seen: Jun 07, 2025 History of Present Illness History of Present Illness I was asked to see this nice man for severe axial low back pain NO inciting trauma the pain is radiating down the legs to the feet but the axial back pain is the main issue. no prior lumbar spine surgery no bowel or bladder incontinence he is having so much pain that it is resulting in balance issues. no fevers, chills or night sweats He has a history of rheumatoid arthritis and is on iv remicaide He is also having elevated blood sugars He came into the er here 5 weeks ago with severe back pain. he had hand swelling froma splinter i nthe hand and at that time, he had staph epidermidis bacteremia and was treated with one week of iv antibiotics. He felt better but now the pain is back Allergies and medications Allergies: Uncoded Allergies: almond (Allergy, Unknown, 05/04/25) Review of systems Review of Systems: HEENT:Normal, CVS:Normal, RESPIRATORY:Normal, GI:Normal, :Normal, MSK:Normal, NEURO:Abnormal Examination Vital signs Vital Signs Date Time Temp Pulse Resp B/P (MAP) Pulse Ox O2 Delivery O2 Flow Rate FiO2 06/07/25 05:00 98.9 81 17 118/85 (96) 93 98.9 06/06/25 20:00 Room Air* 0 21 Laboratory [place] [address] Ph: [phone] DIAGNOSTIC IMAGING Diagnostic Imaging Report : [id number] Signed PATIENT: JANAY OLSON ACCT: [id number] UNIT: [id number] : 1970 LOC: [facility] ROOM / BED: [facility] / A AGE / SEX: 54 / M ADM STATUS: ADM IN SERVICE [id number] ORDERING PHYSICIAN: THONY PINEDA MD PROCEDURE(s): LS2CT - LS SPINE WO CONTRAST REASON: BACK PAIN ORDER NUMBER(s): [id number], ACCESSION NUMBER(s): [id number] CLINICAL HISTORY: BACK PAIN TECHNIQUE: CT of the lumbar spine was performed without intravenous contrast. This exam was performed according to our departmental dose optimization program. Up-to-date CT equipment and radiation dose reduction techniques are utilized as appropriate. 47.36 CTDI: 47.36 DLP: 2.47 WID: COMPARISON: CT LS SPINE WO CONTRAST on DOS: 05/03/25 FINDINGS: There are 5 [id number] lumbar type vertebral bodies. Minimal anterolisthesis at L4-L5 and minimal retrolisthesis at L5-S1. Otherwise normal alignment. Vertebral body heights are maintained. No acute fracture. Multilevel lumbar spondylosis with multilevel facet hypertrophy and minor multilevel disc space narrowing. T12-L1, there is no significant stenosis. At L1-L2, there is a diffuse disc bulge and facet hypertrophy resulting in mild spinal stenosis and no significant neural foraminal stenosis. At L2-L3, there is diffuse disc bulge, facet hypertrophy, ligamentum flavum thickening resulting in moderate spinal stenosis and minor bilateral neural foraminal stenosis. At L3-L4, there is a diffuse disc bulge, facet hypertrophy, ligamentum flavum thickening resulting in moderate to severe spinal stenosis and mild bilateral neural foraminal stenosis. At L4-L5, there is a diffuse disc bulge, facet hypertrophy, and ligamentum flavum thickening resulting in severe spinal stenosis and moderate bilateral neural foraminal stenosis. At L5-S1, there is a diffuse disc bulge and facet hypertrophy resulting in moderate spinal stenosis and moderate bilateral neural foraminal stenosis. There is soft tissue stranding about the L5-S1 intervertebral disc. There is interval mild lucency in the lateral aspect of the inferior endplate of L5 and along the superior endplate of S1. Posterior paraspinal soft tissues are intact. There is mild calcified plaque in the visualized aortoiliac vessels. IMPRESSION: 1. Interval soft tissue stranding about the L5-S1 disc space as well as some lucency in the lateral aspect of the inferior endplate of L5 and along the superior endplate of S1. This could be early findings of discitis . acute inflammation associated with degenerative disc disease is also in the diff erential. Correlate with clinical presentation and labs. Consider obtaining contrast-enhanced MRI lumbar spine to evaluate this finding if clinically indicated. 2. Multilevel degenerative change of the lumbar spine resulting in multilevel spinal stenosis up to severe at L4-L5 and multilevel bony neural foraminal stenosis up to moderate bilaterally at L4-L5 and L5-S1. ATED BY: CORTEZ BLOUNT MD DICTATED DATE/TIME: 101806 SIGNED BY: CORTEZ BLOUNT MD SIGNED DATE/TIME: 06/05/251806 CC: Labs Test 06/07/25 06:36 06/07/25 06:09 06/06/25 06:08 06/06/25 00:48 Range/Units White Blood Count 5.7 4.4-10.8 10^3/uL Red Blood Count 3.53 L 4.5-5.90 10^6/uL Hemoglobin 10.2 L 13.5-17.5 g/dL Hematocrit 29.4 L 41.0-53.0 % Mean Corpuscular Volume 83.3 80.0-100.0 fL Mean Corpuscular Hemoglobin 29.1 28.0-32.0 pg Mean Corpuscular Hemoglobin Concent 34.9 32.0-36.0 g/dL Red Cell Distribution Width 15.1 H 11.8-14.3 % Platelet Count 193 140-450 10^3/uL Mean Platelet Volume 7.4 6.9-10.8 fL Neutrophils (%) (Auto) 74.7 37.0-80.0 % Lymphocytes (%) (Auto) 12.3 10.0-50.0 % Monocytes (%) (Auto) 8.9 0.0-12.0 % Eosinophils (%) (Auto) 3.7 0.0-7.0 % Basophils (%) (Auto) 0.4 0.0-2.0 % Neutrophils # (Auto) 4.2 1.6-8.6 10 ^3/uL Lymphocytes # (Auto) 0.7 0.4-5.4 10 ^3/uL Monocytes # (Auto) 0.5 0-1.3 10 ^3/uL Eosinophils # (Auto) 0.2 0-0.8 10 ^3/uL Basophils # (Auto) 0 0-0.2 10 ^3/uL Nucleated Red Blood Cells 0.1 % Creatinine 1.16 0.700-1.30 mg/dL Glomerular Filtration Rate Calc 75 >90 mL/min POC Glucose 121 H 70-106 mg/dl Sodium Level 134 L 136-145 mmol/L Potassium Level 3.9 3.5-5.1 mmol/L Chloride Level 100 98-107 mmol/L Carbon Dioxide Level 23 20-31 mmol/L Anion Gap 11 5-15 Blood Urea Nitrogen 19 9-23 mg/dL BUN/Creatinine Ratio 16.4 10.0-20.0 Serum Glucose 107 H 74-106 mg/dL Calcium Level 8.8 8.7-10.4 mg/dL Vancomycin Level Trough 15.5 H 5-10 ug/mL Test 06/04/25 06:09 06/04/25 00:00 06/03/25 19:05 Range/Units Total Bilirubin 1.7 H 0.2-1.0 mg/dL Aspartate Amino Transferase (AST) 18 13-40 U/L Alanine Aminotransferase (ALT) 16 7-40 U/L Alkaline Phosphatase 61 46-116 U/L Total Protein 7.2 5.7-8.2 g/dL Albumin 4.0 3.2-4.8 g/dL Urine Color Light-orange Yellow Urine Clarity Clear Clear Urine pH 5.5 5.0-9.0 Urine Specific [place] 1.027 1.001-1.035 Urine Protein 1+ H Negative Urine Ketones 1+ H Negative Urine Blood Negative Negative /uL Urine Nitrite Negative Negative Urine Bilirubin Negative Negative Urine Urobilinogen 2 H Negative mg/dL Urine Leukocyte Esterase Negative Negative /uL Urine RBC None seen 0 - 3 /hpf Urine Microscopic WBC 2 0-3 /HPF Urine Squamous Epithelial Cells None seen <5 /hpf Urine Bacteria None seen None Seen /hpf Urine Mucus Few None Seen Urine Glucose Trace Normal mg/dL Lactic Acid Level 1.4 0.4-2.0 mmol/L Microbiology Date/Time Source Procedure Growth Status 06/04/25 22:30 Nose MRSA Screen - Final Complete 06/03/25 19:05 Blood Blood Culture - Final Staphylococcus aureus Complete Examination: GENERAL:Normal, HEENT:Normal, NECK:Normal, CVS:Normal, MSK:Abnormal, SKIN:Normal, :Normal Problem List/Assessment/Plan Problems: (1) Discitis Assessment and Plan The Ct scan has suspicion for discitis The WBC is normal and he is not septic so no urgent treatment is needed. However, if confirmed, then iv antibiotics for a minimum of 6 weeks is needed. I will order MRI lumbar spine to make a diagnosis Plan discussed with Plan discussed with: Patient CELINA FIELD MD Jun 07, 2025 12:17
[2025-06-07] MEDS: LORazepam 2MG/ML-1ML VIAL IV ONE (14:04)
--- NOTE | 2025-06-07 14:59 | DVH ---
EXAM: MRI LUMBAR SPINE WO CONTRAST CLINICAL HISTORY: diagnose spine infection COMPARISON: CT LS SPINE WO CONTRAST on DOS: 06/05/25, XY LUMBAR SPINE 3 VIEW on DOS: 06/03/25, CT LS SPINE WO CONTRAST on DOS: 05/03/25 TECHNIQUE: MRI imaging of the lumbar was performed on a MRI imaging system without intravenous contrast. FINDINGS: Transitional lumbosacral vertebral body. Multilevel disc degeneration. Alignment: Grade 1 retrolisthesis of L1 on L2. Vertebrae: Vertebral body height is well maintained without evidence of a recent compression fracture . Conus: T12-L1: The disc configuration is normal. No spinal canal or neural foraminal stenosis. The facet prosper nts are normal. L1-2: Grade 1 retrolisthesis of L1 on L2 by 21.2 mm. The disc configuration is normal. No spinal mirta l stenosis. Moderate left foraminal stenosis. Facet arthrosis. L2-3: Disc bulge. Mild left subarticular zone stenosis. Mild left foraminal stenosis. Facet arthrosis . L3-4: Disc desiccation. Mild spinal canal stenosis. Mild bilateral subarticular zone stenosis. Mild b ilateral foraminal stenosis. Facet arthrosis. L4-5: Disc desiccation and 3.45 mm disc bulge. Mild spinal canal stenosis. Mild bilateral subarticula r zone stenosis. Mild bilateral foraminal stenosis. Facet arthrosis. L5-S1: Transitional level. Disc desiccation. Severe bilateral subarticular zone stenosis with bilater al descending S1 nerve root compression. Moderate right and severe left foraminal stenosis with poten tial left exiting L5 nerve root compression. Facet arthrosis. IMPRESSION: 1. Transitional anatomy. Careful attention to vertebral numbering is recommended on subsequent examin ations to ensure consistency. Multilevel disc degeneration. Multilevel spinal canal stenosis, most pr onounced and mild at L4-L5. Multilevel subarticular zone stenosis, most pronounced and severe at L5-S 1 with bilateral descending S1 nerve root compression. Multilevel foraminal stenosis, most pronounced and severe at L5-S1 with potential left exiting L5 nerve root compression.
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
[2025-06-08] VITALS (8 sets, daily range): BP systolic 107–123; BP diastolic 71–96; PULSE 74–107; RESP 17–20; TEMP 98–98.8; O2SAT 96–99
--- NOTE | 2025-06-08 08:56 | DVHPN2 ---
Progress Note - Surgical Date Seen: Jun 08, 2025 Post op day Post op day: 0 Subjective Patient reports: Other (back still hurts) Review of Systems: HEENT:Normal Objective Vital signs Vital Sign Date Time Temp Pulse Resp B/P (MAP) Pulse Ox O2 Delivery O2 Flow Rate FiO2 06/08/25 05:00 98.6 74 18 117/86 (96) 97 98.6 06/07/25 20:00 Room Air* 0 21 Total Intake and Output 06/07/25 06/07/25 06/08/25 15:00 23:00 07:00 Intake Total 300 ml 520 ml Output Total 500 ml Balance 300 ml 20 ml Medications Current Medications Medications Dose Ordered Sig/Beronica Route Start Time Stop Time Status Last Admin Dose Admin Diagnostic Test (Pha) 1 strip ACHS 06/04/25 07:00 06/08/25 06:28 1 STRIP Insulin Human Regular HS SC 06/04/25 22:00 Insulin Human Regular AC SC 06/04/25 07:00 06/06/25 13:52 2 UNITS Dextrose 50 ml UD PRN IV 06/03/25 22:30 Sodium Chloride 1,000 ml @ 60 mls/hr [id number] IV 06/03/25 22:30 06/07/25 09:50 60 MLS/HR Acetaminophen/ Hydrocodone Bitart 1 tab Q4HP PRN PO 06/03/25 22:30 06/08/25 01:48 1 TAB Ondansetron HCl 4 mg Q4HP PRN IV 06/03/25 22:30 Docusate Sodium 100 mg BIDPRN PRN PO 06/03/25 22:30 Acetaminophen 650 mg Q6HP PRN PO 06/03/25 22:30 Nitroglycerin 0.4 mg Q5MINP PRN SL 06/03/25 23:00 Morphine Sulfate 2 mg Q30M PRN IV 06/03/25 23:00 Metoprolol Tartrate 25 mg BID PO 06/04/25 10:00 06/07/25 21:44 25 MG Amiodarone HCl 200 mg Q12HR PO 06/04/25 10:00 06/07/25 21:43 200 MG Apixaban 5 mg BID PO 06/04/25 10:00 06/07/25 21:43 5 MG Vancomycin HCl 0 ml @ 0 mls/hr UD IV 06/04/25 12:00 Vancomycin HCl 250 ml @ 200 mls/hr Q12H IV 06/05/25 01:00 06/08/25 01:41 200 MLS/HR Cyclobenzaprine HCl 10 mg Q8HPRN PRN PO 06/05/25 11:15 06/07/25 12:09 10 MG Hydromorphone HCl 1 mg Q4HPRN PRN IV 06/05/25 16:30 06/07/25 02:50 1 MG Laboratory Laboratory Tests 06/08/25 06:15 06/07/25 06:36 06/06/25 06:08 Test 06/06/25 06:08 Range/Units Serum Glucose 107 H 74-106 mg/dL Microbiology Date/Time Source Procedure Growth Status 06/04/25 22:30 Nose MRSA Screen - Final Complete 06/03/25 19:05 Blood Blood Culture - Final Staphylococcus aureus Complete Examination: MSK:Abnormal Problem List/Assessment/Plan Assessment and Plan Osteomyelitis/Discitis Lumbar5/Sacral 1 disc /bones This is a non operative situation: CRP/ESR as basline labs 6 weeks iv antibiotics at minimum and re check labs to consider switching to po antibiotics My Orders My Orders Orders - CELINA FIELD MD Procedure Category Date Status Time Lumbar Spine Wo MRI 06/07/25 Resulted Contrast 12:37 C-Reactive Protein LAB 06/08/25 Transmitted 08:44 Erythrocyte LAB 06/08/25 Transmitted Sedimentation Rate 08:44 Plan discussed with Plan discussed with: Patient Visit Coding Surgery Date of Service if different f: Jun 08, 2025 Billing Provider: CELINA FIELD MD Surgery Visit Codes: NOT BILLABLE CELINA FIELD MD Jun 08, 2025 08:55
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
[2025-06-09] VITALS (8 sets, daily range): BP systolic 94–131; BP diastolic 55–91; PULSE 83–96; RESP 17–20; TEMP 97.7–98.9; O2SAT 93–99
--- NOTE | 2025-06-09 08:42 | DVHINCON2 ---
Date of service: Jun 08, 2025 Family History: Diabetes mellitus G8 MOTHER Hypertension G8 MOTHER G8 FATHER Allergies: Uncoded Allergies: almond (Allergy, Unknown, 05/04/25) Vital Signs Vital Signs Date Time Temp Pulse Resp B/P (MAP) Pulse Ox O2 Delivery O2 Flow Rate FiO2 06/09/25 05:00 98.2 83 19 112/76 (88) 99 98.2 06/08/25 20:00 Room Air* 0 21 Labs/Diagnostic Data Labs Test 06/09/25 05:54 06/09/25 05:26 06/08/25 12:06 06/08/25 05:21 Range/Units POC Glucose 127 H 70-106 mg/dl Creatinine 1.05 0.700-1.30 mg/dL Glomerular Filtration Rate Calc 85 >90 mL/min Random Vancomycin Level 10.5 H 5-10 ug/mL Vancomycin Level Trough 20.6 H 5-10 ug/mL Erythrocyte Sedimentation Rate 112 H 0-20 mm/hr C-Reactive Protein High Sensitivity 14.29 H <1.0 mg/dL Test 06/07/25 06:36 06/06/25 06:08 06/04/25 06:09 06/04/25 00:00 Range/Units White Blood Count 5.7 4.4-10.8 10^3/uL Red Blood Count 3.53 L 4.5-5.90 10^6/uL Hemoglobin 10.2 L 13.5-17.5 g/dL Hematocrit 29.4 L 41.0-53.0 % Mean Corpuscular Volume 83.3 80.0-100.0 fL Mean Corpuscular Hemoglobin 29.1 28.0-32.0 pg Mean Corpuscular Hemoglobin Concent 34.9 32.0-36.0 g/dL Red Cell Distribution Width 15.1 H 11.8-14.3 % Platelet Count 193 140-450 10^3/uL Mean Platelet Volume 7.4 6.9-10.8 fL Neutrophils (%) (Auto) 74.7 37.0-80.0 % Lymphocytes (%) (Auto) 12.3 10.0-50.0 % Monocytes (%) (Auto) 8.9 0.0-12.0 % Eosinophils (%) (Auto) 3.7 0.0-7.0 % Basophils (%) (Auto) 0.4 0.0-2.0 % Neutrophils # (Auto) 4.2 1.6-8.6 10 ^3/uL Lymphocytes # (Auto) 0.7 0.4-5.4 10 ^3/uL Monocytes # (Auto) 0.5 0-1.3 10 ^3/uL Eosinophils # (Auto) 0.2 0-0.8 10 ^3/uL Basophils # (Auto) 0 0-0.2 10 ^3/uL Nucleated Red Blood Cells 0.1 % Sodium Level 134 L 136-145 mmol/L Potassium Level 3.9 3.5-5.1 mmol/L Chloride Level 100 98-107 mmol/L Carbon Dioxide Level 23 20-31 mmol/L Anion Gap 11 5-15 Blood Urea Nitrogen 19 9-23 mg/dL BUN/Creatinine Ratio 16.4 10.0-20.0 Serum Glucose 107 H 74-106 mg/dL Calcium Level 8.8 8.7-10.4 mg/dL Total Bilirubin 1.7 H 0.2-1.0 mg/dL Aspartate Amino Transferase (AST) 18 13-40 U/L Alanine Aminotransferase (ALT) 16 7-40 U/L Alkaline Phosphatase 61 46-116 U/L Total Protein 7.2 5.7-8.2 g/dL Albumin 4.0 3.2-4.8 g/dL Urine Color Light-orange Yellow Urine Clarity Clear Clear Urine pH 5.5 5.0-9.0 Urine Specific [place] 1.027 1.001-1.035 Urine Protein 1+ H Negative Urine Ketones 1+ H Negative Urine Blood Negative Negative /uL Urine Nitrite Negative Negative Urine Bilirubin Negative Negative Urine Urobilinogen 2 H Negative mg/dL Urine Leukocyte Esterase Negative Negative /uL Urine RBC None seen 0 - 3 /hpf Urine Microscopic WBC 2 0-3 /HPF Urine Squamous Epithelial Cells None seen <5 /hpf Urine Bacteria None seen None Seen /hpf Urine Mucus Few None Seen Urine Glucose Trace Normal mg/dL Test 06/03/25 19:05 Range/Units Lactic Acid Level 1.4 0.4-2.0 mmol/L Microbiology Date/Time Source Procedure Growth Status 06/04/25 22:30 Nose MRSA Screen - Final Complete 06/03/25 19:05 Blood Blood Culture - Final Staphylococcus aureus Complete Problems(with codes): (1) MSSA (methicillin susceptible Staphylococcus aureus) septicemia (2) MSSA bacteremia (3) Sepsis (4) Discitis (5) Diabetes mellitus with hyperglycemia (6) Intractable back pain (7) Hypotension Plan/Recommendation ASSESSMENT AND PLAN: ID Problem List: -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) -Severe sepsis (April admission), persistent bacteremia through 05/08 per prior records -Low back pain with multilevel degenerative disease and stenosis; bilateral S1 nerve root compression -Possible discitis raised on CT; lumbar MRI without evidence of discitis -Testicular pain rule out genitourinary source of infection -Atrial fibrillation; Hypertension; Diabetes mellitus -Rheumatoid arthritis (on infliximab per prior records) Assessment This is a 54-year-old male with AFib, hypertension, diabetes, and rheumatoid arthritis (on infliximab) presenting with worsening low back and leg pain with numbness, and recurrent MSSA bacteremia. Prior April hospitalization documented persistent bacteremia (through 05/08) with negative ABRAHAM at that time and discharge on IV levofloxacin (reason unclear given MSSA). Current admission (06/03) blood cultures positive for MSSA; repeat cultures from 06/09 are pending. Imaging: Lumbar CT suggested possible early discitis (L5-S1 soft tissue stranding/lucency), however contrast-enhanced MRI demonstrated multilevel degenerative changes with canal and foraminal stenosis (most pronounced at L4-5 and L5-S1) and bilateral descending S1 nerve root compression, with no evidence of discitis. Given recurrent MSSA bacteremia and imaging findings, discitis remains a concern despite MRI; endovascular source less likely given prior n egative ABRAHAM, but repeat echocardiography warranted. Patient also reports testicular pain; will evaluate for epididymo-orchitis or other source. Plan: -Antimicrobials: -Transitioned from vancomycin to cefazolin (Ancef) for MSSA. -Add oral rifampin given recurrence of bacteremia despite prior therapy. -Total planned duration: 6 weeks IV therapy, start date to be anchored to first set of negative follow-up blood cultures. -Source evaluation: -Repeat blood cultures; will use clearance date to set antibiotic clock. -Repeat echocardiogram to reassess for infective endocarditis. -Order scrotal/testicular ultrasound to evaluate testicular pain as possible source. -Access: -PICC line placement for outpatient IV antibiotic therapy. -Spine/neurologic: -Neurosurgery consulted; defer surgical intervention decisions to neurosurgery. Current recommendation noted as IV antibiotics and outpatient follow-up. -Monitor for progression of lower extremity weakness/numbness; if not improving after antibiotic course, re-evaluate with neurosurgery. -Monitoring: -Review antibiotic susceptibilities; confirm MSSA profile. -Monitor renal function (baseline Cr 1.31) and for rifampin interactions/adverse effects. -Note: Vancomycin troughs were supratherapeutic on 06/08. -Follow-up: -Infectious Disease clinic follow-up in 6 weeks after completion of IV antibiotics. -Neurosurgery follow-up as outpatient. -Comorbidities: -AFib/HTN/DM: Management details not provided in transcript; continue per primary team. -Suspected prior source: -Prior lower abdominal skin ulcers were considered the etiology for initial MSSA bacteremia; currently no open wounds and area appears healthy per transcript. Isolation Precautions: standard \*Assessment and plan was discussed with the patient as written above. \*Plan is subject to change pending incorporation of new incoming information/diagnostics. Updates may be added as addendum at the bottom (OR TOP) of this note. Thank you for the interesting consult. ID will continue to follow. Please contact Infectious Disease for any questions or concerns. Deloris Ibrahim M.D. [facility] \ History: The patient's chart and medications were reviewed in detail and the patient was seen and examined. History obtained from: patient and chart review per transcript. Phill Lisa is a 54-year-old male with AFib, hypertension, diabetes, and rheumatoid arthritis (on infliximab every 6 weeks per prior records) who presents with worsening lower back and leg pain with new leg numbness. He had severe sepsis in April with MSSA bacteremia persisting through 05/08; ABRAHAM at that time was negative for endocarditis. He was discharged on IV levofloxacin for 7 days (reason unclear given MSSA). Current admission (06/03) blood cultures again positive for MSSA. Repeat blood cultures from 06/09 are pending; MRSA screen negative. Lumbar spine X-ray and CT showed degenerative disease, with CT suggesting possible early discitis at L5-S1; MRI showed multilevel degenerative changes and stenosis with bilateral descending S1 nerve root compression but no MRI evidence of discitis. He reports testicular pain; scrotal ultrasound is planned to assess for a genitourinary source. Antibiotics changed from vancomycin (with supratherapeutic troughs on 06/08) to cefazolin; ID recommends 6 weeks of IV therapy with addition of oral rifampin, starting from the date of blood culture clearance. Review of Systems: -Constitutional: Not discussed. -HEENT: Not discussed. -Respiratory: Not discussed. -Cardiovascular: Not discussed. -Gastrointestinal: Not discussed. -Genitourinary: Positive for testicular pain; otherwise not discussed. -Musculoskeletal: Positive for lower back pain; leg pain. -Skin: No open sores/wounds currently per transcript. -Neurological: Positive for leg numbness. -Psychiatric: Not discussed. Note: A complete ROS was not provided in the transcript; positives are as documented above. Past Medical History: -Atrial fibrillation -Hypertension -Diabetes mellitus -Rheumatoid arthritis (on infliximab every 6 weeks per prior records) Past Surgical History: -Not provided in transcript. Home Medications: -Not provided in transcript. Allergies: -Not provided in transcript. Family History: -Not provided in transcript. Social History: -Not provided in transcript. Objective: Vital Signs on Arrival: -Not fully clarified in transcript. Most Recent Vital Signs: -Temp: 98 F -BP: 115/52 (other values also mentioned in transcript; most consistent set shown here) -Pulse: 106 -Resp: 20 -SpO2: 96% on room air Admission/Recent Labs: -WBC: 8.6 K/L -Hemoglobin: 12.3 g/dL -Platelets: 194 K/L -BUN: 20 mg/dL -Creatinine: 1.31 mg/dL -Blood cultures: Positive for MSSA on 06/03; repeat cultures from 06/09 pending -MRSA screen: Negative Physical Exam: General: NAD Neck: Supple. No masses. HEENT: PERRL. Normal lids and conjunctiva. Moist mucous membranes. Oropharynx without lesions, exudates or excessive erythema. Normal appearance of the external aspects of the nose and ears. Heart: Regular rhythm, normal rate. No murmur. No lower extremity edema. Lungs: Normal respiratory effort. Clear to auscultation bilaterally. No wheezes. No crackles. Abdomen: Soft. Non-tender. Non-distended. No masses or abdominal hernia. Msk: No digital cyanosis. Normal strength and tone in all 4 limbs Skin: Warm and dry, no rashes. Neuro: Alert. No facial droop or slurred speech. Extra-ocular movements intact. Sensation intact to soft touch in all 4 limbs. Psych: Appropriate mood. Full affect. Oriented to person, place, time, and situation. Lines: -Not provided in transcript. Diagnostic Studies: Available diagnostic studies were reviewed personally. Significant relevant results and findings are outlined below or addressed in the Assessment and Plan above. Pertinent Imaging: -Lumbar spine X-ray: -Spondylosis/degenerative disc disease (T10L1); grade 1 anterolisthesis at L4L5. -CT thoracic/lumbar spine: -Thoracic: Exaggerated kyphosis; multilevel spondylosis; [id number] bilateral neuroforaminal stenosis at T5T6; moderate right neuroforaminal stenosis at T6T7. No high-grade spinal canal stenosis. -Lumbar: Soft tissue stranding about L5S1 disc space with lucency along inferior endplate of L5 and superior endplate of [id number] early discitis vs acute inflammation associated with degenerative disc disease. Contrast-enhanced MRI recommended. -MRI lumbar spine (contrast-enhanced): -Transitional anatomy; multilevel degenerative disc disease. -Multilevel spinal canal stenosis, most pronounced at L4L5. -Multilevel subarticular stenosis most pronounced at L5S1 with bilateral descending S1 nerve root compression. -Multilevel foraminal stenosis most pronounced at L5S1 with potential left exiting nerve root compression. -No MRI evidence of discitis. Microbiology: -Blood cultures: MSSA positive on 06/03; repeat cultures from 06/09 pending. -MRSA screen: Negative. -Prior ABRAHAM (April): Negative for infective endocarditis. Additional Notes: -Prior April admission: Severe sepsis; persistent bacteremia through 05/08; discharge on IV levofloxacin x7 days (reason unclear for MSSA). -No open sores/wounds at this time; prior lower abdominal skin ulcers thought to be initial source and now improving. Plan discussed with: Patient DELORIS IBRAHIM MD Jun 09, 2025 08:42
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
[2025-06-09] MEDS ORDERED: VANCOMYCIN 1GM/250ML KIT 250 ML IV SCH (13:00)
[2025-06-09 14:13] LABS: INR 1.13 (0.9-1.15); Partial Thromboplastin Time 36.4 SEC (24.5-34.5); Prothrombin Time 11.8 sec (9.3-11.8)
[2025-06-09] MEDS: rifAMPin 300 MG CAP PO SCH (16:51)
[2025-06-10] VITALS (8 sets, daily range): BP systolic 97–141; BP diastolic 41–93; PULSE 74–94; RESP 16–18; TEMP 97.5–98.2; O2SAT 94–97
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
--- NOTE | 2025-06-10 21:29 | DVHPN2 ---
Consult Progress Note Date Seen: Jun 10, 2025 Objective vital signs Vital Sign Date Time Temp Pulse Resp B/P (MAP) Pulse Ox O2 Delivery O2 Flow Rate FiO2 06/10/25 20:00 Room Air* 0 21 06/10/25 17:00 97.6 90 18 97/69 (78) 95 97.6 Total Intake and Output 06/09/25 06/09/25 06/10/25 15:00 23:00 07:00 Intake Total 1850 ml 500 ml Output Total 1500 ml 1150 ml Balance 350 ml -650 ml medications Current Medications Medications Dose Ordered Sig/Beronica Route Start Time Stop Time Status Last Admin Dose Admin Diagnostic Test (Pha) 1 strip ACHS 06/04/25 07:00 06/10/25 16:53 1 STRIP Insulin Human Regular HS SC 06/04/25 22:00 06/09/25 21:56 2 UNITS Insulin Human Regular AC SC 06/04/25 07:00 06/10/25 16:53 2 UNITS Dextrose 50 ml UD PRN IV 06/03/25 22:30 Sodium Chloride 1,000 ml @ 60 mls/hr [id number] IV 06/03/25 22:30 06/09/25 12:03 60 MLS/HR Acetaminophen/ Hydrocodone Bitart 1 tab Q4HP PRN PO 06/03/25 22:30 06/10/25 16:53 1 TAB Ondansetron HCl 4 mg Q4HP PRN IV 06/03/25 22:30 Docusate Sodium 100 mg BIDPRN PRN PO 06/03/25 22:30 Acetaminophen 650 mg Q6HP PRN PO 06/03/25 22:30 Nitroglycerin 0.4 mg Q5MINP PRN SL 06/03/25 23:00 Morphine Sulfate 2 mg Q30M PRN IV 06/03/25 23:00 Metoprolol Tartrate 25 mg BID PO 06/04/25 10:00 06/10/25 09:34 25 MG Amiodarone HCl 200 mg Q12HR PO 06/04/25 10:00 06/10/25 09:33 200 MG Apixaban 5 mg BID PO 06/04/25 10:00 06/10/25 09:32 5 MG Cyclobenzaprine HCl 10 mg Q8HPRN PRN PO 06/05/25 11:15 06/10/25 19:56 10 MG Hydromorphone HCl 1 mg Q4HPRN PRN IV 06/05/25 16:30 06/10/25 11:44 1 MG Rifampin 300 mg BIDAC PO 06/09/25 17:00 06/10/25 16:55 300 MG laboratory and microbiology Laboratory Tests 06/10/25 06:58 06/07/25 06:36 06/06/25 06:08 Test 06/06/25 06:08 Range/Units Serum Glucose 107 H 74-106 mg/dL Problem List/Assessment/Plan Problem List/Assessment/Plan blood culture drawn patient afebrile echo not done given recent ABRAHAM negative plan: continue ancef and rifampin will fu on blood cultures , clear to place PICC line after 3-4 days of negative blood cultures will fu on scrotal US Dietary Evaluation Review Comments: Pt would benefit from decreased total caloric consumption to reduce weight-bearing on his spine. Wt management is desirable upon D/C Expected Outcomes/Goals: gradual wt loss DELORIS CHRISTINA MD Jun 10, 2025 21:29
[2025-06-11] VITALS (8 sets, daily range): BP systolic 102–125; BP diastolic 64–87; PULSE 80–88; RESP 17–22; TEMP 97.5–98.3; O2SAT 93–99
--- NOTE | 2025-06-11 12:04 | DVH ---
Exam: US TESTICULAR ULTRASOUND Date: 06/11/2025 10:37 AM Clinical History: Pain; rule out abscess Comparison: None Technique: Targeted sonographic evaluation of the soft tissues of the left scrotal region was obtained utilizing grayscale and color Doppler imaging. Findings/Impression: There is a cystic structure versus fluid collection in the soft tissues of the left scrotal region in region of palpable abnormality measuring 1.6 x 0.7 x 1.7 cm.
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
[2025-06-11] MEDS ORDERED: VANCOMYCIN PER PHARMACY 0 MG IV SCH (15:00)
[2025-06-11] MEDS: VANCOMYCIN 1GM/250ML KIT 250 ML IV SCH (17:47)
[2025-06-12] VITALS (8 sets, daily range): BP systolic 95–147; BP diastolic 70–99; PULSE 68–82; RESP 16–19; TEMP 97.4–98.8; O2SAT 96–99
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
[2025-06-12 14:15] LABS: Hematocrit 30.8 % (41.0-53.0); Hemoglobin 10.5 g/dL (13.5-17.5); Mean Corpuscular Hemoglobin 28.0 pg (28.0-32.0); Mean Corpuscular Volume 82.1 fL (80.0-100.0); Nucleated Red Blood Cells % 0.1 %
[2025-06-12] MEDS: VANCOMYCIN 1.75GM/350ML 350 ML IV SCH (15:33)
[2025-06-12] MEDS: LACTULOSE 20Gm/30ML SOLN PO SCH (18:56)
--- NOTE | 2025-06-12 23:57 | DVHPN2 ---
Consult Progress Note Objective vital signs Vital Sign Date Time Temp Pulse Resp B/P (MAP) Pulse Ox O2 Delivery O2 Flow Rate FiO2 06/12/25 21:46 85 95/70 06/12/25 21:00 98.7 19 97 98.7 06/12/25 08:10 Room Air* 0 21 Total Intake and Output 06/11/25 06/11/25 06/12/25 15:00 23:00 07:00 Intake Total 1395 ml 600 ml Output Total 800 ml 450 ml Balance 595 ml 150 ml medications Current Medications Medications Dose Ordered Sig/Beronica Route Start Time Stop Time Status Last Admin Dose Admin Diagnostic Test (Pha) 1 strip ACHS 06/04/25 07:00 06/12/25 21:46 1 STRIP Insulin Human Regular HS SC 06/04/25 22:00 06/12/25 21:46 2 UNITS Insulin Human Regular AC SC 06/04/25 07:00 06/10/25 16:53 2 UNITS Dextrose 50 ml UD PRN IV 06/03/25 22:30 Sodium Chloride 1,000 ml @ 60 mls/hr [id number] IV 06/03/25 22:30 06/12/25 06:36 60 MLS/HR Acetaminophen/ Hydrocodone Bitart 1 tab Q4HP PRN PO 06/03/25 22:30 06/11/25 00:38 1 TAB Ondansetron HCl 4 mg Q4HP PRN IV 06/03/25 22:30 Docusate Sodium 100 mg BIDPRN PRN PO 06/03/25 22:30 Acetaminophen 650 mg Q6HP PRN PO 06/03/25 22:30 Nitroglycerin 0.4 mg Q5MINP PRN SL 06/03/25 23:00 Morphine Sulfate 2 mg Q30M PRN IV 06/03/25 23:00 Metoprolol Tartrate 25 mg BID PO 06/04/25 10:00 06/12/25 09:37 25 MG Amiodarone HCl 200 mg Q12HR PO 06/04/25 10:00 06/12/25 21:43 200 MG Apixaban 5 mg BID PO 06/04/25 10:00 06/12/25 21:43 5 MG Cyclobenzaprine HCl 10 mg Q8HPRN PRN PO 06/05/25 11:15 06/11/25 04:02 10 MG Hydromorphone HCl 1 mg Q4HPRN PRN IV 06/05/25 16:30 06/12/25 18:57 1 MG Rifampin 300 mg BIDAC PO 06/09/25 17:00 06/12/25 18:37 300 MG Vancomycin HCl 0 ml @ 0 mls/hr PER PHARMACY IV 06/11/25 15:00 Vancomycin HCl 350 ml @ 233.333 mls/hr Q12H IV 06/12/25 15:00 06/12/25 15:33 233.333 MLS/HR Lactulose 30 ml Q6HR PO 06/12/25 18:00 06/12/25 18:56 30 ML laboratory and microbiology Laboratory Tests 06/12/25 13:57 06/12/25 07:12 06/06/25 06:08 Test 06/06/25 06:08 Range/Units Serum Glucose 107 H 74-106 mg/dL Dietary Evaluation Review Comments: Pt would benefit from decreased total caloric consumption to reduce weight-bearing on his spine. Wt management is desirable upon D/C Expected Outcomes/Goals: gradual wt loss DELORIS CHRISTINA MD Jun 12, 2025 23:57
[2025-06-13] VITALS (7 sets, daily range): BP systolic 109–125; BP diastolic 75–91; PULSE 74–94; RESP 17–20; TEMP 97.2–98.8; O2SAT 96–98
[2025-06-13 07:24] LABS: Hematocrit 31.1 % (41.0-53.0); Hemoglobin 10.5 g/dL (13.5-17.5); Mean Corpuscular Hemoglobin 28.3 pg (28.0-32.0); Mean Corpuscular Volume 83.5 fL (80.0-100.0); Nucleated Red Blood Cells % 0.3 %
[2025-06-13 09:42] LABS: INR 1.05 (0.9-1.15); Partial Thromboplastin Time 33.9 SEC (24.5-34.5); Prothrombin Time 11.1 sec (9.3-11.8)
[2025-06-13] MEDS: LIDOCAINE 1% (LOCAL ANESTH.) PF 5ml SDV ID ONE (11:30)
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
[2025-06-13] MEDS: SODIUM CHLOR 0.9% PF (SALINE LOCK) 10ML VIAL/SYR IV SCH (21:40)
[2025-06-14] VITALS (8 sets, daily range): BP systolic 115–164; BP diastolic 70–98; PULSE 69–92; RESP 16–20; TEMP 96.6–98; O2SAT 92–99
[2025-06-14] MEDS: VANCOMYCIN 1.75GM/350ML 350 ML IV ONE (03:08)
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
--- NOTE | 2025-06-14 18:52 | DVHPN2 ---
Consult Progress Note Objective vital signs Vital Sign Date Time Temp Pulse Resp B/P (MAP) Pulse Ox O2 Delivery O2 Flow Rate FiO2 06/14/25 17:00 97.1 76 16 125/91 (102) 99 97.1 06/14/25 08:00 Room Air* 0 21 Total Intake and Output 06/13/25 06/13/25 06/14/25 15:00 23:00 07:00 Intake Total 540 ml 1540 ml 750 ml Output Total 800 ml 1100 ml Balance 540 ml 740 ml -350 ml medications Current Medications Medications Dose Ordered Sig/Beronica Route Start Time Stop Time Status Last Admin Dose Admin Diagnostic Test (Pha) 1 strip ACHS 06/04/25 07:00 06/14/25 16:49 1 STRIP Insulin Human Regular HS SC 06/04/25 22:00 06/12/25 21:46 2 UNITS Insulin Human Regular AC SC 06/04/25 07:00 06/10/25 16:53 2 UNITS Dextrose 50 ml UD PRN IV 06/03/25 22:30 Sodium Chloride 1,000 ml @ 60 mls/hr [id number] IV 06/03/25 22:30 06/14/25 08:27 60 MLS/HR Ondansetron HCl 4 mg Q4HP PRN IV 06/03/25 22:30 Docusate Sodium 100 mg BIDPRN PRN PO 06/03/25 22:30 Acetaminophen 650 mg Q6HP PRN PO 06/03/25 22:30 Nitroglycerin 0.4 mg Q5MINP PRN SL 06/03/25 23:00 Metoprolol Tartrate 25 mg BID PO 06/04/25 10:00 06/14/25 08:26 25 MG Amiodarone HCl 200 mg Q12HR PO 06/04/25 10:00 06/14/25 08:26 200 MG Apixaban 5 mg BID PO 06/04/25 10:00 06/14/25 08:25 5 MG Cyclobenzaprine HCl 10 mg Q8HPRN PRN PO 06/05/25 11:15 06/13/25 09:38 10 MG Hydromorphone HCl 1 mg Q4HPRN PRN IV 06/05/25 16:30 06/14/25 15:35 1 MG Rifampin 300 mg BIDAC PO 06/09/25 17:00 06/14/25 17:12 300 MG Vancomycin HCl 0 ml @ 0 mls/hr PER PHARMACY IV 06/11/25 15:00 Lactulose 30 ml Q6HR PO 06/12/25 18:00 06/14/25 17:11 30 ML Sodium Chloride 10 ml QSHIFT@10,22 IV 06/13/25 22:00 06/14/25 08:27 10 ML Acetaminophen/ Hydrocodone Bitart 1 tab Q4HPRN PRN PO 06/13/25 14:15 laboratory and microbiology Laboratory Tests 06/14/25 01:50 06/13/25 05:14 06/06/25 06:08 Test 06/06/25 06:08 Range/Units Serum Glucose 107 H 74-106 mg/dL Problem List/Assessment/Plan Problem List/Assessment/Plan blood culture drawn patient afebrile echo not done given recent ABRAHAM negative Dietary Evaluation Review Comments: Pt would benefit from decreased total caloric consumption to reduce weight-bearing on his spine. Wt management is desirable upon D/C Expected Outcomes/Goals: gradual wt loss DELORIS CHRISTINA MD Jun 14, 2025 18:52
--- NOTE | 2025-06-14 19:04 | DVHPN2 ---
Consult Progress Note Date Seen: Jun 14, 2025 Subjective Patient reports: Feels better (picc line in place, patient to go to SNF) Objective vital signs Vital Sign Date Time Temp Pulse Resp B/P (MAP) Pulse Ox O2 Delivery O2 Flow Rate FiO2 06/14/25 17:00 97.1 76 16 125/91 (102) 99 97.1 06/14/25 08:00 Room Air* 0 21 Total Intake and Output 06/13/25 06/13/25 06/14/25 15:00 23:00 07:00 Intake Total 540 ml 1540 ml 750 ml Output Total 800 ml 1100 ml Balance 540 ml 740 ml -350 ml medications Current Medications Medications Dose Ordered Sig/Beronica Route Start Time Stop Time Status Last Admin Dose Admin Diagnostic Test (Pha) 1 strip ACHS 06/04/25 07:00 06/14/25 16:49 1 STRIP Insulin Human Regular HS SC 06/04/25 22:00 06/12/25 21:46 2 UNITS Insulin Human Regular AC SC 06/04/25 07:00 06/10/25 16:53 2 UNITS Dextrose 50 ml UD PRN IV 06/03/25 22:30 Sodium Chloride 1,000 ml @ 60 mls/hr [id number] IV 06/03/25 22:30 06/14/25 08:27 60 MLS/HR Ondansetron HCl 4 mg Q4HP PRN IV 06/03/25 22:30 Docusate Sodium 100 mg BIDPRN PRN PO 06/03/25 22:30 Acetaminophen 650 mg Q6HP PRN PO 06/03/25 22:30 Nitroglycerin 0.4 mg Q5MINP PRN SL 06/03/25 23:00 Metoprolol Tartrate 25 mg BID PO 06/04/25 10:00 06/14/25 08:26 25 MG Amiodarone HCl 200 mg Q12HR PO 06/04/25 10:00 06/14/25 08:26 200 MG Apixaban 5 mg BID PO 06/04/25 10:00 06/14/25 08:25 5 MG Cyclobenzaprine HCl 10 mg Q8HPRN PRN PO 06/05/25 11:15 06/13/25 09:38 10 MG Hydromorphone HCl 1 mg Q4HPRN PRN IV 06/05/25 16:30 06/14/25 15:35 1 MG Rifampin 300 mg BIDAC PO 06/09/25 17:00 06/14/25 17:12 300 MG Vancomycin HCl 0 ml @ 0 mls/hr PER PHARMACY IV 06/11/25 15:00 Lactulose 30 ml Q6HR PO 06/12/25 18:00 06/14/25 17:11 30 ML Sodium Chloride 10 ml QSHIFT@10,22 IV 06/13/25 22:00 06/14/25 08:27 10 ML Acetaminophen/ Hydrocodone Bitart 1 tab Q4HPRN PRN PO 06/13/25 14:15 laboratory and microbiology Laboratory Tests 06/14/25 01:50 06/13/25 05:14 06/06/25 06:08 Test 06/06/25 06:08 Range/Units Serum Glucose 107 H 74-106 mg/dL Problem List/Assessment/Plan Problem List/Assessment/Plan blood culture drawn, ngtd patient afebrile echo not done given recent ABRAHAM negative. 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 scrotal US - There is a cystic structure versus fluid collection in the soft tissues of the left scrotal region in region of palpable abnormality measuring 1.6 x 0.7 x 1.7 cm. plan: continue ancef x 6 weeks via picc line + oral rifampin 300mg po bid x 6 weeks fu in ID clinic in 4-6 weeks continue rehab at recommend neurosurgery fu as outpatient should patient have continued neurological deficits. Plan discussed with: Patient Dietary Evaluation Review Comments: Pt would benefit from decreased total caloric consumption to reduce weight-bearing on his spine. Wt management is desirable upon D/C Expected Outcomes/Goals: gradual wt loss DELORIS CHRISTINA MD Jun 14, 2025 19:04
[2025-06-14] MEDS: HYDROcodone-ACET 5/325MG TAB PO PRN (22:42)
[2025-06-15] VITALS (8 sets, daily range): BP systolic 103–158; BP diastolic 69–91; PULSE 77–103; RESP 16–20; TEMP 97.7–98.4; O2SAT 94–100
[2025-06-15] MEDS: KETOROLAC TROMETH 30 MG/ML 1ML VIAL IV ONE (06:20)
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
[2025-06-15] MEDS: HYDROmorphone HCL 2 MG/ML VL/or syr IV PRN (12:54)
--- NOTE | 2025-06-15 14:50 | MEDREC ---
[facility] ASP Intervention Section I [facility] ASP Intervention: Review courses of therapy (Per Dr. Gibson and Dr. Ibrahim progress notes, patient is planned to be discharged on ancef 8g q24h for 6 weeks. May consider discontinuing vancomycin and initiating ancef while still inpatient if/when clinically appropriate.) LASHONDA PATEL [facility] RESIDENT Jun 15, 2025 14:50
[2025-06-15] MEDS: VANCOMYCIN 1.25GM/250ML 250 ML IV SCH (15:36)
[2025-06-16] VITALS (8 sets, daily range): BP systolic 106–143; BP diastolic 75–90; PULSE 61–118; RESP 18–19; TEMP 97.4–98.2; O2SAT 95–99
--- NOTE | 2025-06-16 10:50 | MEDREC ---
[facility] ASP Intervention Section I [facility] ASP Intervention: Deescalate AB based on CS (PLEASE CONSIDER DE-ESCALATION ACCORDING TO THE CULTURE RESULTS - UNNECESSARY MRSA COVERAGE IN A PATIENT WITHOUT MRSA MAY BE HARMFUL SINCE IT CAN LEAD TO UNNECESSARY ANTIBIOTIC EXPOSURE, WHICH MAY RESULT IN ANTIBIOTIC RESISTANCE ) BE JUDD PHARMACIST Jun 16, 2025 10:50
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
[2025-06-16] MEDS: ceFAZolin 2 GM/D5W50ml 50 ML IV SCH (12:45)
--- NOTE | 2025-06-16 22:16 | DVHPN2 ---
Consult Progress Note Objective vital signs Vital Sign Date Time Temp Pulse Resp B/P (MAP) Pulse Ox O2 Delivery O2 Flow Rate FiO2 06/16/25 22:05 86 16 110/69 06/16/25 17:00 97.7 95 97.7 06/16/25 08:10 Room Air* 0 21 Total Intake and Output 06/15/25 06/15/25 06/16/25 15:00 23:00 07:00 Intake Total 850 ml 950 ml Balance 850 ml 950 ml medications Current Medications Medications Dose Ordered Sig/Beronica Route Start Time Stop Time Status Last Admin Dose Admin Diagnostic Test (Pha) 1 strip ACHS 06/04/25 07:00 06/16/25 22:08 1 STRIP Insulin Human Regular HS SC 06/04/25 22:00 06/12/25 21:46 2 UNITS Insulin Human Regular AC SC 06/04/25 07:00 06/16/25 17:28 2 UNITS Dextrose 50 ml UD PRN IV 06/03/25 22:30 Sodium Chloride 1,000 ml @ 60 mls/hr [id number] IV 06/03/25 22:30 06/16/25 10:30 60 MLS/HR Ondansetron HCl 4 mg Q4HP PRN IV 06/03/25 22:30 Docusate Sodium 100 mg BIDPRN PRN PO 06/03/25 22:30 Acetaminophen 650 mg Q6HP PRN PO 06/03/25 22:30 Nitroglycerin 0.4 mg Q5MINP PRN SL 06/03/25 23:00 Metoprolol Tartrate 25 mg BID PO 06/04/25 10:00 06/16/25 21:34 25 MG Amiodarone HCl 200 mg Q12HR PO 06/04/25 10:00 06/16/25 21:33 200 MG Apixaban 5 mg BID PO 06/04/25 10:00 06/16/25 21:34 5 MG Cyclobenzaprine HCl 10 mg Q8HPRN PRN PO 06/05/25 11:15 06/16/25 09:40 10 MG Rifampin 300 mg BIDAC PO 06/09/25 17:00 06/16/25 17:22 300 MG Vancomycin HCl 0 ml @ 0 mls/hr PER PHARMACY IV 06/11/25 15:00 Hold Lactulose 30 ml Q6HR PO 06/12/25 18:00 06/14/25 17:11 30 ML Sodium Chloride 10 ml QSHIFT@10,22 IV 06/13/25 22:00 06/16/25 21:36 10 ML Acetaminophen/ Hydrocodone Bitart 1 tab Q4HPRN PRN PO 06/13/25 14:15 06/15/25 09:51 1 TAB Hydromorphone HCl 1 mg Q6HP PRN IV 06/15/25 12:15 06/16/25 21:35 1 MG Vancomycin HCl 250 ml @ 200 mls/hr Q12H IV 06/15/25 15:00 Hold 06/16/25 15:19 200 MLS/HR Cefazolin Sodium/ Dextrose 50 ml @ 50 mls/hr Q6HR IV 06/16/25 12:00 06/16/25 17:23 50 MLS/HR laboratory and microbiology Laboratory Tests 06/16/25 07:01 06/13/25 05:14 06/06/25 06:08 Test 06/06/25 06:08 Range/Units Serum Glucose 107 H 74-106 mg/dL Problem List/Assessment/Plan Problem List/Assessment/Plan blood culture drawn, ngtd patient afebrile echo not done given recent ABRAHAM negative. 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 scrotal US - There is a cystic structure versus fluid collection in the soft tissues of the left scrotal region in region of palpable abnormality measuring 1.6 x 0.7 x 1.7 cm. plan: continue ancef x 6 weeks via picc line + oral rifampin 300mg po bid x 6 weeks fu in ID clinic in 4-6 weeks continue rehab at SNF recommend neurosurgery fu as outpatient should patient have continued neurological deficits. Dietary Evaluation Review Comments: Pt would benefit from decreased total caloric consumption to reduce weight-bearing on his spine. Wt management is desirable upon D/C Expected Outcomes/Goals: gradual wt loss DELORIS CHRISTINA MD Jun 16, 2025 22:16
[2025-06-17] VITALS (8 sets, daily range): BP systolic 105–137; BP diastolic 66–89; PULSE 70–80; RESP 18–19; TEMP 97.2–98.7; O2SAT 95–100
[2025-06-18] VITALS (8 sets, daily range): BP systolic 114–133; BP diastolic 62–88; PULSE 72–83; RESP 17–19; TEMP 98.1–98.6; O2SAT 96–100
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
--- NOTE | 2025-06-18 22:13 | DVHPN2 ---
Consult Progress Note Objective vital signs Vital Sign Date Time Temp Pulse Resp B/P (MAP) Pulse Ox O2 Delivery O2 Flow Rate FiO2 06/18/25 21:41 77 116/75 06/18/25 21:00 98.1 17 96 98.1 06/18/25 08:11 Room Air* 0 21 Total Intake and Output 06/17/25 06/17/25 06/18/25 15:00 23:00 07:00 Intake Total 50 ml 350 ml 460 ml Output Total 500 ml 970 ml Balance 50 ml -150 ml -510 ml medications Current Medications Medications Dose Ordered Sig/Beronica Route Start Time Stop Time Status Last Admin Dose Admin Diagnostic Test (Pha) 1 strip ACHS 06/04/25 07:00 06/18/25 21:41 1 STRIP Insulin Human Regular HS SC 06/04/25 22:00 06/12/25 21:46 2 UNITS Insulin Human Regular AC SC 06/04/25 07:00 06/16/25 17:28 2 UNITS Dextrose 50 ml UD PRN IV 06/03/25 22:30 Sodium Chloride 1,000 ml @ 60 mls/hr [id number] IV 06/03/25 22:30 06/18/25 12:11 60 MLS/HR Ondansetron HCl 4 mg Q4HP PRN IV 06/03/25 22:30 Docusate Sodium 100 mg BIDPRN PRN PO 06/03/25 22:30 Acetaminophen 650 mg Q6HP PRN PO 06/03/25 22:30 Nitroglycerin 0.4 mg Q5MINP PRN SL 06/03/25 23:00 Metoprolol Tartrate 25 mg BID PO 06/04/25 10:00 06/18/25 21:41 25 MG Amiodarone HCl 200 mg Q12HR PO 06/04/25 10:00 06/18/25 21:41 200 MG Apixaban 5 mg BID PO 06/04/25 10:00 06/18/25 21:41 5 MG Cyclobenzaprine HCl 10 mg Q8HPRN PRN PO 06/05/25 11:15 06/16/25 09:40 10 MG Rifampin 300 mg BIDAC PO 06/09/25 17:00 06/18/25 17:47 300 MG Lactulose 30 ml Q6HR PO 06/12/25 18:00 06/14/25 17:11 30 ML Sodium Chloride 10 ml QSHIFT@10,22 IV 06/13/25 22:00 06/18/25 21:41 10 ML Acetaminophen/ Hydrocodone Bitart 1 tab Q4HPRN PRN PO 06/13/25 14:15 06/17/25 15:58 1 TAB Hydromorphone HCl 1 mg Q6HP PRN IV 06/15/25 12:15 06/18/25 18:55 1 MG Cefazolin Sodium/ Dextrose 50 ml @ 50 mls/hr Q6HR IV 06/16/25 12:00 06/18/25 17:47 50 MLS/HR laboratory and microbiology Laboratory Tests 06/17/25 04:59 06/13/25 05:14 06/06/25 06:08 Test 06/06/25 06:08 Range/Units Serum Glucose 107 H 74-106 mg/dL Problem List/Assessment/Plan Problem List/Assessment/Plan blood culture drawn, ngtd patient afebrile echo not done given recent ABRAHAM negative. 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 scrotal US - There is a cystic structure versus fluid collection in the soft tissues of the left scrotal region in region of palpable abnormality measuring 1.6 x 0.7 x 1.7 cm. plan: continue ancef x 6 weeks via picc line + oral rifampin 300mg po bid x 6 weeks fu in ID clinic in 4-6 weeks continue rehab at [facility] recommend neurosurgery fu as outpatient should patient have continued neurological deficits. Dietary Evaluation Review Comments: Pt would benefit from decreased total caloric consumption to reduce weight-bearing on his spine. Wt management is desirable upon D/C Expected Outcomes/Goals: gradual wt loss DELORIS CHRISTINA MD Jun 18, 2025 22:13
[2025-06-19] VITALS (8 sets, daily range): BP systolic 125–139; BP diastolic 80–96; PULSE 74–86; RESP 17–19; TEMP 97.6–98.1; O2SAT 98–100
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
--- NOTE | 2025-06-19 22:16 | DVHPN2 ---
Consult Progress Note Objective vital signs Vital Sign Date Time Temp Pulse Resp B/P (MAP) Pulse Ox O2 Delivery O2 Flow Rate FiO2 06/19/25 21:22 80 18 134/82 06/19/25 17:00 97.7 98 97.7 06/19/25 08:00 Room Air* 0 21 Total Intake and Output 06/18/25 06/18/25 06/19/25 15:00 23:00 07:00 Intake Total 100 ml 550 ml 2005 ml Output Total 1150 ml 750 ml Balance 100 ml -600 ml 1255 ml medications Current Medications Medications Dose Ordered Sig/[place] Route Start Time Stop Time Status Last Admin Dose Admin Diagnostic Test (Pha) 1 strip ACHS 06/04/25 07:00 06/19/25 22:12 1 STRIP Insulin Human Regular HS SC 06/04/25 22:00 06/12/25 21:46 2 UNITS Insulin Human Regular AC SC 06/04/25 07:00 06/16/25 17:28 2 UNITS Dextrose 50 ml UD PRN IV 06/03/25 22:30 Sodium Chloride 1,000 ml @ 60 mls/hr [id number] IV 06/03/25 22:30 06/19/25 05:12 60 MLS/HR Ondansetron HCl 4 mg Q4HP PRN IV 06/03/25 22:30 Docusate Sodium 100 mg BIDPRN PRN PO 06/03/25 22:30 Acetaminophen 650 mg Q6HP PRN PO 06/03/25 22:30 Nitroglycerin 0.4 mg Q5MINP PRN SL 06/03/25 23:00 Metoprolol Tartrate 25 mg BID PO 06/04/25 10:00 06/19/25 21:22 25 MG Amiodarone HCl 200 mg Q12HR PO 06/04/25 10:00 06/19/25 21:22 200 MG Apixaban 5 mg BID PO 06/04/25 10:00 06/19/25 21:23 5 MG Cyclobenzaprine HCl 10 mg Q8HPRN PRN PO 06/05/25 11:15 06/16/25 09:40 10 MG Rifampin 300 mg BIDAC PO 06/09/25 17:00 06/19/25 17:21 300 MG Lactulose 30 ml Q6HR PO 06/12/25 18:00 06/19/25 06:13 30 ML Sodium Chloride 10 ml QSHIFT@10,22 IV 06/13/25 22:00 06/19/25 21:23 10 ML Acetaminophen/ Hydrocodone Bitart 1 tab Q4HPRN PRN PO 06/13/25 14:15 06/17/25 15:58 1 TAB Hydromorphone HCl 1 mg Q6HP PRN IV 06/15/25 12:15 06/19/25 21:22 1 MG Cefazolin Sodium/ Dextrose 50 ml @ 50 mls/hr Q6HR IV 06/16/25 12:00 06/19/25 17:23 50 MLS/HR laboratory and microbiology Laboratory Tests 06/17/25 04:59 06/13/25 05:14 06/06/25 06:08 Test 06/06/25 06:08 Range/Units Serum Glucose 107 H 74-106 mg/dL Problem List/Assessment/Plan Problem List/Assessment/Plan blood culture drawn, ngtd patient afebrile echo not done given recent ABRAHAM negative. 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 scrotal US - There is a cystic structure versus fluid collection in the soft tissues of the left scrotal region in region of palpable abnormality measuring 1.6 x 0.7 x 1.7 cm. plan: continue ancef x 6 weeks via picc line + oral rifampin 300mg po bid x 6 weeks fu in ID clinic in 4-6 weeks continue rehab at [facility] recommend neurosurgery fu as outpatient should patient have continued neurological deficits. Dietary Evaluation Review Comments: Pt would benefit from decreased total caloric consumption to reduce weight-bearing on his spine. Wt management is desirable upon D/C Expected Outcomes/Goals: gradual wt loss DELORIS CHRISTINA MD Jun 19, 2025 22:16
[2025-06-20] VITALS (8 sets, daily range): BP systolic 12–136; BP diastolic 80–85; PULSE 74–108; RESP 16–20; TEMP 97.1–98.5; O2SAT 97–99
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
[2025-06-21] VITALS (9 sets, daily range): BP systolic 121–149; BP diastolic 83–87; PULSE 64–122; RESP 17–18; TEMP 97.4–98.7; O2SAT 96–99
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
[2025-06-22 05:00] VITALS: BP 114/78; PULSE 94; RESP 18; TEMP 98.8; O2SAT 98
[2025-06-22 08:15] VITALS: PULSE 92
[2025-06-22 09:24] VITALS: BP 127/84; PULSE 85; RESP 18; TEMP 98; O2SAT 98
[2025-06-22 12:54] VITALS: BP 108/66; PULSE 74; RESP 18; TEMP 97.6; O2SAT 97
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
--- NOTE | 2025-06-22 21:14 | DVHPN2 ---
Consult Progress Note Objective vital signs Vital Sign Date Time Temp Pulse Resp B/P (MAP) Pulse Ox O2 Delivery O2 Flow Rate FiO2 06/22/25 12:54 97.6 74 18 108/66 (80) 97 97.6 06/22/25 08:10 Room Air* 0 21 Total Intake and Output 06/21/25 06/21/25 06/22/25 15:00 23:00 07:00 Intake Total 100 ml 765 ml 700 ml Output Total 1900 ml Balance 100 ml -1135 ml 700 ml laboratory and microbiology Laboratory Tests 06/17/25 04:59 06/13/25 05:14 06/06/25 06:08 Test 06/06/25 06:08 Range/Units Serum Glucose 107 H 74-106 mg/dL Problem List/Assessment/Plan Problem List/Assessment/Plan blood culture drawn, ngtd patient afebrile echo not done given recent ABRAHAM negative. 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 scrotal US - There is a cystic structure versus fluid collection in the soft tissues of the left scrotal region in region of palpable abnormality measuring 1.6 x 0.7 x 1.7 cm. plan: continue ancef x 6 weeks via picc line + oral rifampin 300mg po bid x 6 weeks fu in ID clinic in 4-6 weeks continue rehab at SNF recommend neurosurgery fu as outpatient should patient have continued neurological deficits. Dietary Evaluation Review Comments: Pt would benefit from decreased total caloric consumption to reduce weight-bearing on his spine. Wt management is desirable upon D/C Expected Outcomes/Goals: gradual wt loss DELORIS CHRISTINA MD Jun 22, 2025 21:14
== END 2025-06-22 13:25 | DRG 872 ==
LOC: EDBD 18:36 → ER 18:36 → OVERFLOW 23:00 → TELE-WESTW 06-04 16:22
PROVIDERS: ADMIT Hospitalist; ATTEND Hospitalist
PROC: 02HV33Z Insertion of Infusion Device into Superior Vena Cava, Percutaneous Approach (ICD-10-PCS; principal; 2025-06-13)
PROC: B548ZZA Ultrasonography of Superior Vena Cava, Guidance (ICD-10-PCS; 2025-06-13)
DX: A41.01 Sepsis due to Methicillin susceptible Staphylococcus aureus (principal); M46.27 Osteomyelitis of vertebra, lumbosacral region; E11.65 Type 2 diabetes mellitus with hyperglycemia; E66.01 Morbid (severe) obesity due to excess calories; I10 Essential (primary) hypertension; E11.69 Type 2 diabetes mellitus with other specified complication; I48.91 Unspecified atrial fibrillation; M46.47 Discitis, unspecified, lumbosacral region; N50.819 Testicular pain, unspecified; Z91.018 Allergy to other foods; Z68.39 Body mass index [BMI] 39.0-39.9, adult; Z82.49 Family history of ischemic heart disease and other diseases of the circulatory system; Z83.3 Family history of diabetes mellitus
CPT/HCPCS: 36415; 36569; 72100; 72128; 72131; 72148; 76870; 76937; 80048; 80053; 80202; 81001; 82565; 82962; 83605; 85025; 85610; 85652; 85730; 86141; 87040; 87077; 87081; 87186; 93005; 96360; 97110; 97116; 97163; 97530; G0378; J1815; J1885